=== PATIENT | male | born 1945 | race American Indian/Alaskan Native ===

== ENCOUNTER 2018-12-03 11:28 | Inpatient (IN) | payer BC, MEDICARE ==
[2018-12-03 11:28] VITALS: BMI 26.9
[2018-12-03] MEDS ORDERED: Sodium Chloride 0.9% 1,000 ML IV STA ×2 (12:31→12:39)
--- NOTE | 2018-12-03 12:49 | ED PDOC ---
HPI: General Adult Time Seen by Provider: 12/03/18 11:57 Chief Complaint (Nursing): Hip Pain Chief Complaint (Provider): Hip Pain History Per: Patient, Family History/Exam Limitations: no limitations Onset/Duration Of Symptoms: Days Current Symptoms Are (Timing): Still Present Additional Complaint(s): 73 year old male with a past medical history of HIV (CD4 count 320, viral load undetectable), diabetes and hypertension who is presenting to the ED with sister and cousin for evaluation of worsening bilateral hip pain ongoing for a few days. Patient has a history of chronic hip pain and he admits that the pain is worse with movement. He lives with his cousin and sister who state that patient was given an oxycodone and sister reports that he seemed confused even prior to the medication. She also states that patient has a tactile temperature and was sweating. Patient admits that he does not remember talking on the phone with his friend but today he is back to baseline mental status. Patient also complains of a decreased ability to ambulate secondary to pain. He denies any headaches, parasthesias, weakness or incontinence. PMD: Renate Garcia Past Medical History Reviewed: Historical Data, Nursing Documentation, Vital Signs Vital Signs: Last Vital Signs Temp 101.8 F H 12/03/18 12:28 Pulse 113 H 12/03/18 11:34 Resp 19 12/03/18 11:34 BP Pulse Ox 95 12/03/18 11:34 - Medical History PMH: Diabetes, Hypercholesterolemia Denies: Chronic Kidney Disease - Surgical History Surgical History: Hernia Repair (ventral and inguinal ) - Family History Family History: States: Unknown Family Hx - Social History Current smoker - smoking cessation education provided: No Alcohol: Social Drugs: Denies - Home Medications Home Medications: Ambulatory Orders Medication Instructions Recorded Darunavir [Prezista] 800 mg PO DAILY 10/10/18 Emtricitabine/Tenofovir Diso 1 tab PO DAILY 10/10/18 [Truvada 200 MG-300 MG] Famciclovir [Famvir] 500 mg PO Q12 10/10/18 Hydrochlorothiazide [Microzide] 12.5 mg PO DAILY 10/10/18 Levothyroxine [Synthroid] 50 mcg PO DAILY 10/10/18 Linagliptin [Tradjenta] 5 mg PO DAILY 10/10/18 Raltegravir Potassium [Isentress] 400 mg PO Q12 10/10/18 Ritonavir [Norvir] 100 mg PO DAILY 10/10/18 Tamsulosin [Flomax] 0.4 mg PO DAILY 10/10/18 Telmisartan [Micardis] 40 mg PO DAILY 10/10/18 Testosterone [Androgel] 2 actuation TOP BID 10/10/18 Ascorbic Acid [Vitamin C 500 mg 1 tab PO DAILY 12/03/18 Tab] Lysine [l-Lysine] 1 tab PO DAILY 12/03/18 MetFORMIN ER [Glucophage XR] 750 mg PO BID 12/03/18 Multivitamin [Multi-Vitamin Daily] 1 tab PO DAILY 12/03/18 Phil Campbell-3 Fatty Acids/Fish Oil 1,000 mg PO Q12 12/03/18 [Phil Campbell-3 1,000 mg Softgel] Ubidecarenone [Coenzyme Q-10] 1 cap PO DAILY 12/03/18 - Allergies Allergies/Adverse Reactions: Allergies Allergy/AdvReac Type Severity Reaction Status Date / Time No Known Allergies Allergy Verified 10/10/18 08:05 Review of Systems ROS Statement: Except As Marked, All Systems Reviewed And Found Negative Genitourinary Male: Negative for: Incontinence Musculoskeletal: Positive for: Other (hip pain bilaterally ) Neurological: Positive for: Confusion. Negative for: Weakness, Headache, Other (parasthesias ) Physical Exam - Reviewed Nursing Documentation Reviewed: Yes Vital Signs Reviewed: Yes - Physical Exam Appears: Positive for: Non-toxic, No Acute Distress Head Exam: Positive for: ATRAUMATIC, NORMAL INSPECTION, NORMOCEPHALIC Skin: Positive for: Normal Color, Warm, DRY Eye Exam: Positive for: EOMI, Normal appearance, PERRL Neck: Positive for: Normal, Painless ROM Cardiovascular/Chest: Positive for: Regular Rate, Rhythm. Negative for: Murmur Respiratory: Positive for: Normal Breath Sounds. Negative for: Respiratory Distress Gastrointestinal/Abdominal: Positive for: Normal Exam, Soft. Negative for: Tenderness Back: Positive for: Normal Inspection. Negative for: L CVA Tenderness, R CVA Tenderness, Vertebral Tenderness Extremity: Positive for: Normal ROM, Other (Decreased muscle strength bilateral lower extremities ). Negative for: Deformity, Swelling Neurological/Psych: Positive for: Awake, Alert, Normal Tone, Oriented (x3). Negative for: Motor/Sensory Deficits - Laboratory Results Result Diagrams: 12/03/18 13:25 12/03/18 13:25 - ECG O2 Sat by Pulse Oximetry: 95 (RA) Pulse Ox Interpretation: Normal - Critical Care Total Time (In Min): 120 Medical Decision Making Medical Decision Making: Time: 12:22 Plan: --VBG --EKG --CMP --ED Urine Dipstick --CBC --Coags --CXR --MRI Spinal Canal Lumbar --IV Fluids --Tylenol 650 mg PO --Blood Culture --Urine Culture --Glucose, Blood, POC --Influenza A B --Urinalysis Accession No. : [id number] Patient Name / ID : CHAPINCITO RESTREPO / [id number] Exam Date : 12/03/2018 12:39:28 ( Approved ) Study Comment : Sex / Age : M / 73Y Creator : Nehal Portillo MD Dictator : Nehal Portillo MD Graphics Intern : Roll Finisher : Nehal Portillo MD Approver2 : Report Date : 12/03/2018 14:04:03 My Comment : Date of service: 12/03/2018 HISTORY: SOB COMPARISON: 10/07/2009. FINDINGS: LUNGS: The lungs are hyperinflated and there is peribronchial thickening with chronic changes in both lungs. No focal consolidation. PLEURA: No pleural effusions or pneumothorax. CARDIOVASCULAR: The heart is normal in size. No aortic atherosclerotic calcifications present. OSSEOUS STRUCTURES: Within normal limits for the patient's age. VISUALIZED UPPER ABDOMEN: Normal. OTHER FINDINGS: None. IMPRESSION: No active pulmonary disease. COPD. Accession No. : [id number] Patient Name / ID : CHAPINCITO RESTREPO / [id number] Exam Date : 12/03/2018 15:35:58 ( Approved ) Study Comment : Sex / Age : M / 73Y Creator : Nehal Portillo MD Dictator : Nehal Portillo MD Graphics Intern : Roll Finisher : Nehal Portillo MD Approver2 : Report Date : 12/03/2018 16:55:53 My Comment : Date of service: 12/03/2018 PROCEDURE: MRI BRAIN WITH AND WITHOUT CONTRAST HISTORY: Resolved AMS, HIV, fever COMPARISON: None available. TECHNIQUE: Multiplanar, multisequence MR images of the brain were obtained with and without intravenous contrast enhancement. 19 cc Omniscan was injected intravenously. FINDINGS: HEMORRHAGE: None DWI: There are few tiny foci of restricted diffusion in the left paramedian posterior inferior cerebellar hemisphere. BRAIN PARENCHYMA: There are mild chronic microangiopathic changes. There is no mass, mass effect or abnormal extra-axial fluid collection. The midline sagittal structures are normal. ENHANCEMENT: No abnormal intracranial enhancement. VENTRICLES: There is mild age-related global parenchymal volume loss and proportionate enlargement of the ventricles and cortical sulci. CRANIUM: There is normal bone marrow signal pattern. ORBITS: Grossly unremarkable. PARANASAL SINUSES/MASTOIDS: There is a moderate right mastoid effusions. The left mastoid air cells are clear. The paranasal sinuses are predominantly clear. VASCULAR SYSTEM: There are normal signal voids in the larger intracranial arteries. OTHER FINDINGS: None . IMPRESSION: 1. Few small foci of acute left PICA territory infarctions in the left posterior inferior cerebellar hemisphere. The pattern of distribution suggests embolic etiology. 2. Mild chronic microangiopathic changes and mild age-related global parenchymal volume loss. Accession No. : [id number] Patient Name / ID : CHAPINCITO RESTREPO / [id number] Exam Date : 12/03/2018 16:09:16 ( Approved ) Study Comment : Sex / Age : M / 73Y Creator : Nehal Portillo MD Dictator : Nehal Portillo MD Graphics Intern : Roll Finisher : Nehal Portillo MD Approver2 : Report Date : 12/03/2018 17:11:44 My Comment : Date of service: 12/03/2018 PROCEDURE: MR LUMBAR SPINE WITH AND WITHOUT CONTRAST HISTORY: HIV, bakc pain, fever COMPARISON: None available. TECHNIQUE: Multiecho multiplanar sequences were performed through the lumbar spine with and without the use of intravenous contrast. 19 cc Omniscan was injected intravenously. FINDINGS: There is degenerative 8 mm retrolisthesis of L5 on S1. There is straightening of the lumbar spine with loss of normal lumbar lordosis. There are advanced degenerative endplate marrow changes at L5-S1 and to a lesser extent at L2-3 posteriorly. There is enhancement corresponding to the endplate marrow changes at L2-3 posteriorly most compatible with reactive/inflammatory enhancement. Otherwise, bone marrow signal is within normal limits. 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 The conus medullaris terminates at a normal level and the nerve roots of cauda e quina are normal. T12-L1: No disc herniation, spinal canal stenosis or neural foraminal narrowing. L1-2: Diffuse posterior disc bulge indents the ventral thecal sac without central spinal canal stenosis. Also noted is superimposed left foraminal disc protrusion. Mild bilateral facet arthropathy contribute to mild left neural foraminal narrowing. L2-3: Diffuse posterior disc bulge indents the ventral thecal sac and in conjunction with moderate ligamentum flavum infolding result in moderate spinal canal stenosis. Mild bilateral facet arthropathy contribute to mild neural foraminal narrowing. L3-4: Diffuse posterior disc bulge indents the ventral thecal sac and in conjunction with mild ligamentum flavum infolding result in mild spinal canal stenosis. Mild bilateral facet arthropathy without neural foraminal narrowing. L4-5: Diffuse posterior disc bulge and superimposed broad-based central disc protrusion indents the ventral thecal sac and in conjunction with moderate ligamentum flavum infolding result in mild spinal canal stenosis. Moderate bilateral facet arthropathy contribute to severe right and moderate left neural foraminal narrowing. L5-S1: Diffuse posterior disc bulge indents the ventral thecal sac and in conjunction with mild ligamentum flavum infolding result in mild spinal canal stenosis. Severe bilateral facet arthropathy contribute to severe neural foraminal narrowing. OTHER FINDINGS: The paraspinous soft tissues are normal imaged portion of the retroperitoneum is within normal limits. IMPRESSION: 1. No acute fracture or spondylolysis. 2. Advanced multilevel degenerative disc disease superimposed on a congenitally narrow spinal canal from congenital short pedicles, worse at L4-5 with a broad- based central disc protrusion, mild spinal canal stenosis, severe right and moderate left neural foraminal narrowing. 3. Additional comments as described above. 15:00 Dr. Sanchez in ED, results discussed. 16:[address] Steele, awaiting MRI results. 16:[address] Roy (Radiology), MRI brain reveals infarcts. 17:05 MRI findings discussed with Dr. Sanchez, Dr. Fontenot for Neuro, recommends CT abd/pelvis. 17:10 MRI findings discussed with Dr. Fontenot, ASA, CTA head and neck, admit to ICU. 17:25 Will prophylactically administer Vancomycin 1 g IV and Cefepime 2 g IV for endocarditis. Pt reexamined. Denies ROSENBAUM, neck stiffness, CP, SOB. BLE weakness resolved, MS 5/5 bilaterally, no heart murmur appreciated, no complaints. MRI findings discussed with Dr. Steele and Laura. Pt and family requesting Dr. De Paz for Cardiology. 17:[address] De Paz, will consult. 17:[address] Sanchez in ED, will discussed with Dr. Rosa (ICU). Scribe Attestation: Documented by Colleen Lion, acting as a scribe for Mercedes Sommers MD. Provider Scribe Attestation: All medical record entries made by the Scribe were at my direction and personally dictated by me. I have reviewed the chart and agree that the record accurately reflects my personal performance of the history, physical exam, me dical decision making, and the department course for this patient. I have also personally directed, reviewed, and agree with the discharge instructions and disposition. Disposition - Clinical Impression Clinical Impression: Fever, Sepsis, HIV (human immunodeficiency virus infection), Cerebrovascular accident, embolic - Disposition Referrals: Non [facility] Provider, [Primary Care Provider] - Disposition Time: 18:09 Condition: GUARDED Forms: Whitepages (Yi) - Pt Status Changed To: Hospital Disposition Of: Inpatient - Admit Certification Admit to Inpatient:: After my assessment, the patient will require hospitalization for at least two midnights. This is because of the severity of symptoms shown, intensity of services needed, and/or the medical risk in this patient being treated as an outpatient. - POA Present On Arrival: Poor Glycemic Control
[2018-12-03 13:38] LABS: VENOUS BLOOD GAS BASE EXCESS -1.3 mmol/L (0.0-2.0); VENOUS BLOOD GAS PCO2 35 mmHg (40-60); VENOUS BLOOD GAS PO2 39 mm/Hg (30-55); VENOUS BLOOD PH 7.42 (7.32-7.43)
[2018-12-03 13:49] LABS: BASO # 0.1 K/uL (0.0-0.2); BASO % 0.2 % (0.0-2.0); LYMPH # 0.6 K/uL (1.0-4.3); LYMPH % 2.5 % (20.0-40.0); MEAN CELL VOLUME 93.5 fl (80.0-94.0); MEAN CORPUSCULAR HGB CONC 33.2 g/dL (33.0-37.0); MEAN PLATELET VOLUME 7.5 fl (7.2-11.7); MONO # 1.3 K/uL (0.0-0.8); MONO % 5.3 % (0.0-10.0); NEUT # 22.9 K/uL (1.8-7.0); PLATELET COUNT 279 K/uL (130-400); RBC 3.86 Mil/uL (4.40-5.90); RED CELL DISTRIBUTION WIDTH 14.4 % (11.5-14.5); WHITE BLOOD COUNT 24.9 K/uL (4.8-10.8)
[2018-12-03 13:53] LABS: ALB/GLOB RATIO 1.1 (1.0-2.1); ALBUMIN 4.2 g/dL (3.5-5.0); CALCIUM 9.4 mg/dL (8.4-10.2)
[2018-12-03 13:55] LABS: INR 1.1; PROTHROMBIN TIME 12.4 Seconds (9.8-13.1)
[2018-12-03 13:57] LABS: PARTIAL THROMBOPLASTIN TIME 29.6 Seconds (25.6-37.1)
--- NOTE | 2018-12-03 14:07 | RAD ---
Date of service: 12/03/2018 HISTORY: SOB COMPARISON: 10/07/2009. FINDINGS: LUNGS: The lungs are hyperinflated and there is peribronchial thickening with chronic changes in both lungs. No focal consolidation. PLEURA: No pleural effusions or pneumothorax. CARDIOVASCULAR: The heart is normal in size. No aortic atherosclerotic calcifications present. OSSEOUS STRUCTURES: Within normal limits for the patient's age. VISUALIZED UPPER ABDOMEN: Normal. OTHER FINDINGS: None. IMPRESSION: No active pulmonary disease. COPD.
[2018-12-03 14:40] LABS: SQUAMOUS EPITHIAL < 1 /hpf (0-5); URINE BACTERIA RARE (<OCC); URINE BILIRUBIN NEGATIVE (NEGATIVE); URINE BLOOD MODERATE (NEGATIVE); URINE COLOR YELLOW (YELLOW); URINE GLUCOSE (UA) NEG (NEGATIVE); URINE LEUKOCYTE ESTERASE NEG Leu/uL (Negative); URINE PROTEIN 30 mg/dL (NEGATIVE); URINE UROBILINOGEN 0.2-1.0 mg/dL (0.2-1.0)
[2018-12-03] MEDS ORDERED: Gadodiamide 287 MG/ML VIAL (15ML) IV ONE (14:55)
[2018-12-03 14:57] LABS: URINE CLARITY SLIGHT-CLOUDY (Clear)
[2018-12-03 15:25] LABS: BANDS 6 % (0-2); LYMPHOCYTE 2 % (20-50); MONOCYTE 3 % (0-10); NEUTROPHIL 89 % (42-75); TOTAL CELLS COUNTED 100
[2018-12-03 15:26] LABS: PLATELET ESTIMATE NORMAL (NORMAL)
--- NOTE | 2018-12-03 16:59 | MRI ---
Date of service: 12/03/2018 PROCEDURE: MRI BRAIN WITH AND WITHOUT CONTRAST HISTORY: Resolved AMS, HIV, fever COMPARISON: None available. TECHNIQUE: Multiplanar, multisequence MR images of the brain were obtained with and without intravenous contrast enhancement. 19 cc Omniscan was injected intravenously. FINDINGS: HEMORRHAGE: None DWI: There are few tiny foci of restricted diffusion in the left paramedian posterior inferior cerebellar hemisphere. BRAIN PARENCHYMA: There are mild chronic microangiopathic changes. There is no mass, mass effect or abnormal extra-axial fluid collection. The midline sagittal structures are normal. ENHANCEMENT: No abnormal intracranial enhancement. VENTRICLES: There is mild age-related global parenchymal volume loss and proportionate enlargement of the ventricles and cortical sulci. CRANIUM: There is normal bone marrow signal pattern. ORBITS: Grossly unremarkable. PARANASAL SINUSES/MASTOIDS: There is a moderate right mastoid effusions. The left mastoid air cells are clear. The paranasal sinuses are predominantly clear. VASCULAR SYSTEM: There are normal signal voids in the larger intracranial arteries. OTHER FINDINGS: None . IMPRESSION: 1. Few small foci of acute left PICA territory infarctions in the left posterior inferior cerebellar hemisphere. The pattern of distribution suggests embolic etiology. 2. Mild chronic microangiopathic changes and mild age-related global parenchymal volume loss. Important findings were discussed with Dr. Mercedes Sommers in the ER on 12/03/2018 at 4:53 p.m.
[2018-12-03 17:13] LABS: VENOUS BLOOD GAS BASE EXCESS -1.8 mmol/L (0.0-2.0); VENOUS BLOOD GAS PCO2 42 mmHg (40-60); VENOUS BLOOD GAS PO2 22 mm/Hg (30-55); VENOUS BLOOD PH 7.36 (7.32-7.43)
--- NOTE | 2018-12-03 17:15 | MRI ---
Date of service: 12/03/2018 PROCEDURE: MR LUMBAR SPINE WITH AND WITHOUT CONTRAST HISTORY: HIV, bakc pain, fever COMPARISON: None available. TECHNIQUE: Multiecho multiplanar sequences were performed through the lumbar spine with and without the use of intravenous contrast. 19 cc Omniscan was injected intravenously. FINDINGS: There is degenerative 8 mm retrolisthesis of L5 on S1. There is straightening of the lumbar spine with loss of normal lumbar lordosis. There are advanced degenerative endplate marrow changes at L5-S1 and to a lesser extent at L2-3 posteriorly. There is enhancement corresponding to the endplate marrow changes at L2-3 posteriorly most compatible with reactive/inflammatory enhancement. Otherwise, bone marrow signal is within normal limits. 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 The conus medullaris terminates at a normal level and the nerve roots of cauda equina are normal. T12-L1: No disc herniation, spinal canal stenosis or neural foraminal narrowing. L1-2: Diffuse posterior disc bulge indents the ventral thecal sac without central spinal canal stenosis. Also noted is superimposed left foraminal disc protrusion. Mild bilateral facet arthropathy contribute to mild left neural foraminal narrowing. L2-3: Diffuse posterior disc bulge indents the ventral thecal sac and in conjunction with moderate ligamentum flavum infolding result in moderate spinal canal stenosis. Mild bilateral facet arthropathy contribute to mild neural foraminal narrowing. L3-4: Diffuse posterior disc bulge indents the ventral thecal sac and in conjunction with mild ligamentum flavum infolding result in mild spinal canal stenosis. Mild bilateral facet arthropathy without neural foraminal narrowing. L4-5: Diffuse posterior disc bulge and superimposed broad-based central disc protrusion indents the ventral thecal sac and in conjunction with moderate ligamentum flavum infolding result in mild spinal canal stenosis. Moderate bilateral facet arthropathy contribute to severe right and moderate left neural foraminal narrowing. L5-S1: Diffuse posterior disc bulge indents the ventral thecal sac and in conjunction with mild ligamentum flavum infolding result in mild spinal canal stenosis. Severe bilateral facet arthropathy contribute to severe neural foraminal narrowing. OTHER FINDINGS: The paraspinous soft tissues are normal imaged portion of the retroperitoneum is within normal limits. IMPRESSION: 1. No acute fracture or spondylolysis. 2. Advanced multilevel degenerative disc disease superimposed on a congenitally narrow spinal canal from congenital short pedicles, worse at L4-5 with a broad-based central disc protrusion, mild spinal canal stenosis, severe right and moderate left neural foraminal narrowing. 3. Additional comments as described above.
[2018-12-03] MEDS ORDERED: Vancomycin 1 g Inj ONE (17:24)
[2018-12-03] MEDS ORDERED: Cefepime 2 GM in Sodium Chloride 0.9% 100 ML IVPB STA (17:42)
[2018-12-03] MEDS ORDERED: Iohexol 240 (50 ml) PO ONE (18:08)
--- NOTE | 2018-12-03 18:12 | CP.PCM.CON ---
History of Present Illness - History of Present Illness History of Present Illness: Infectious disease consultation note HPI Patient is a 73-year-old male with past medical history of HIV well-controlled last CD4 -320 and VL < 20 UD ( follows up with me as outpatient) diabetes well- controlled follows up with Dr. blackmon, hypertension, hypothyroidism, BPH, history of lumbar spinal stenosis, and history of bilateral hip arthritis, who states yesterday while he was at work developed feelings of fatigue and not having any strength or energy in his legs bilaterally and he was also somewhat diaphoretic. Patient states when he got home he was even more tired and felt like he had no strength in his legs and could not move his legs secondary to both weakness and pain in bilateral hips patient sister who also lives in the same building on the downstairs for verifies all of this and states that she has not seen his brother like this. She states that while he was finally able to get inside his building he looked disoriented and somewhat confused and apparently had made a phone call to a friend which she does not recall he states eventually he fell asleep. He also states that he was having dry cough for a couple of days but denies any shortness of breath denies any chest pain, denies any nausea vomiting, denies any abdominal pain, denies any dysuria, denies any diarrhea. He denies any headache and denies any neck pain and denies any loss of bowel or bladder however he states he continued to feel weak today and with no strength in his legs and severe bilateral hip pain and hence they called an ambulance and he was brought into the ER for further evaluation Patient denies any recent travel, he does state that he has 2 cats that he has rescued but he has had them for the past 2 years. Denies any scratches by these cats. Patient has also had recent ventral hernia and inguinal hernia repair done by Dr. Lai and as per patient surgery went well and everything is okay with that. Also prior to the surgery I have sent patient for cardiac clearance which was done by Dr. Colin'chiquita and patient had nuclear stress test at that time which was fine as per cardiology. In the ED patient was found to have leukocytosis of 25,000, chest x-ray was read as negative, urinalysis Negative, ER doctor had sent the patient for MRI of the brain and MRI of the spine and as per Tootie at the ER doctor the MRI of the b rain was read as: few small foci of acute Left PICA teriitory infarction in the left posterior crebellar hemisphere. ( as per report). Patient is currently back to his baseline and oriented x e and pleasant and answering all questions appropriately. Review of Systems - Review of Systems Review of Systems: ROS- denies any fever or chills, mild dry cough, denies any sob, denies any chest pain, denies any abd. pain, denies any nausea or vomiting, denies any diarrhea, denies any dysurea. c/o pain in b/l hips along with weakness of the legs but denies any loss of sensation. full strength in arms. Past Patient History - Infectious Disease Hx of Infectious Diseases: None - Past Social History Smoking Status: Former Smoker Alcohol: Social Drugs: Denies Home Situation {Lives}: Alone - CARDIAC Hx Hypercholesterolemia: Yes Hx Hypertension: Yes - PULMONARY Hx Respiratory Disorders: No - NEUROLOGICAL Hx Neurological Disorder: No - HEENT Hx HEENT Problems: No - RENAL Hx Chronic Kidney Disease: No - ENDOCRINE/METABOLIC Hx Diabetes Mellitus Type 2: Yes Hx Hypothyroidism: Yes - HEMATOLOGICAL/ONCOLOGICAL Hx Human Immunodeficiency Virus (HIV): Yes - INTEGUMENTARY Hx Dermatological Problems: No - MUSCULOSKELETAL/RHEUMATOLOGICAL Hx Musculoskeletal Disorders: Yes Hx Spinal Stenosis: Yes - PSYCHIATRIC Hx Substance Use: No - SURGICAL HISTORY Hx Surgeries: Yes Other/Comment: hernia removal 10/2018 Meds Allergies/Adverse Reactions: Allergies Allergy/AdvReac Type Severity Reaction Status Date / Time No Known Allergies Allergy Verified 10/10/18 08:05 - Medications Medications: Current Medications Darunavir (Prezista) 800 mg PO DAILY ON LICENSE OF [facility]; Protocol Emtricitabine/Tenofovir (Truvada 200 Mg-300 Mg) 1 tab PO DAILY [facility]; Protocol Home Med (Famciclovir [Famvir]) 500 mg PO Q12 [facility] Home Med (Lysine [L-Lysine]) 1 tab PO DAILY [facility] Vancomycin HCl 1 gm/ Sodium (Chloride) 250 mls @ 166.667 mls/hr IVPB STAT STA; Protocol Stop: 12/03/18 19:11 Last Admin: 12/03/18 17:49 Dose: 166.667 mls/hr Cefepime HCl 2 gm/ Sodium (Chloride) 100 mls @ 100 mls/hr IVPB STAT STA; Protocol Stop: 12/03/18 18:41 Sodium Chloride (Sodium Chloride 0.9%) 1,000 mls @ 100 mls/hr IV .Q10H [facility] Stop: 12/04/18 18:11 Iohexol (Omnipaque 240 (50 Ml)) 50 ml PO ONCE ONE Stop: 12/03/18 18:09 Levothyroxine Sodium (Synthroid) 50 mcg PO DAILY@0630 ON LICENSE OF [facility] Multivitamins/Minerals (Therapeutic-M Tab) 1 tab PO DAILY ON LICENSE OF [facility] Isohv-2-Rfam Ethyl Esters (Lovaza) 1 gm PO Q12 [facility] Raltegravir (Isentress) 400 mg PO Q12 ON LICENSE OF [facility]; Protocol Ritonavir (Norvir) 100 mg PO DAILY ON LICENSE OF [facility] Tamsulosin HCl (Flomax) 0.4 mg PO DAILY ON LICENSE OF [facility] Physical Exam - Constitutional Appears: No Acute Distress - Head Exam Head Exam: ATRAUMATIC - Eye Exam Eye Exam: EOMI, PERRL - ENT Exam ENT Exam: Normal Oropharynx - Neck Exam Neck exam: Positive for: Full Rom Additional comments: supple no meningismus - Respiratory Exam Respiratory Exam: NORMAL BREATHING PATTERN Additional comments: no wheezing faint crackles at bases b/l - Cardiovascular Exam Cardiovascular Exam: RRR, +S1, +S2 - GI/Abdominal Exam GI & Abdominal Exam: Normal Bowel Sounds, Soft Additional comments: NT, ND chronic lypodystrophy - Extremities Exam Extremities exam: Positive for: normal inspection - Neurological Exam Neurological exam: Alert, Oriented x3 Additional comments: strength 5/5 B/L UE and 4/% B/l LE sensation intact b/l Results - Vital Signs Recent Vital Signs: Last Vital Signs Temp 101.8 F H 12/03/18 12:28 Pulse 113 H 12/03/18 11:34 Resp 19 12/03/18 11:34 BP Pulse Ox 95 12/03/18 18:10 - Labs Result Diagrams: 12/03/18 13:25 12/03/18 13:25 Labs: Laboratory Results - last 24 hr 12/03/18 12/03/18 12/03/18 11:46 13:25 13:25 WBC 24.9 H RBC 3.86 L Hgb 12.0 Hct 36.1 MCV 93.5 MCH 31.0 MCHC 33.2 RDW 14.4 Plt Count 279 MPV 7.5 Neut % (Auto) 92.0 H Lymph % (Auto) 2.5 L Love % (Auto) 5.3 Eos % (Auto) 0.0 Baso % (Auto) 0.2 Neut # (Auto) 22.9 H Lymph # (Auto) 0.6 L Love # (Auto) 1.3 H Eos # (Auto) 0.0 Baso # (Auto) 0.1 Neutrophils % (Manual) 89 H Band Neutrophils % 6 H Lymphocytes % (Manual) 2 L Monocytes % (Manual) 3 Platelet Estimate Normal RBC Morphology Normal PT INR APTT pO2 VBG pH VBG pCO2 VBG HCO3 VBG Total CO2 VBG O2 Sat (Calc) VBG Base Excess VBG Potassium Glucose Lactate FiO2 Sodium 133 Potassium 4.0 Chloride 100 Carbon Dioxide 22 Anion Gap 15 BUN 38 H Creatinine 1.5 Est GFR ( Amer) 56 Est GFR (Non-Af Amer) 46 POC Glucose (mg/dL) 221 H Random Glucose 207 H Calcium 9.4 Total Bilirubin 0.8 AST 58 ALT 37 Alkaline Phosphatase 102 Total Protein 8.0 Albumin 4.2 Globulin 3.7 Albumin/Globulin Ratio 1.1 Venous Blood Potassium Urine Color Urine Clarity Urine pH Ur Specific [place] Urine Protein Urine Glucose (UA) Urine Ketones Urine Blood Urine Nitrate Urine Bilirubin Urine Urobilinogen Ur Leukocyte Esterase Urine RBC (Auto) Urine Microscopic WBC Ur Squamous Epith Cells Urine Bacteria Hyaline Casts Influenza Typ A,B (EIA) 12/03/18 12/03/18 12/03/18 13:25 13:25 13:30 WBC RBC Hgb Hct MCV MCH MCHC RDW Plt Count MPV Neut % (Auto) Lymph % (Auto) Love % (Auto) Eos % (Auto) Baso % (Auto) Neut # (Auto) Lymph # (Auto) Love # (Auto) Eos # (Auto) Baso # (Auto) Neutrophils % (Manual) Band Neutrophils % Lymphocytes % (Manual) Monocytes % (Manual) Platelet Estimate RBC Morphology PT 12.4 INR 1.1 APTT 29.6 pO2 39 VBG pH 7.42 VBG pCO2 35 L VBG HCO3 23.3 VBG Total CO2 23.8 VBG O2 Sat (Calc) 78.1 H VBG Base Excess -1.3 L VBG Potassium 4.1 Glucose 214 H Lactate 2.3 H FiO2 21.0 Sodium 133.0 Potassium Chloride 99.0 Carbon Dioxide Anion Gap BUN Creatinine Est GFR ( Amer) Est GFR (Non-Af Amer) POC Glucose (mg/dL) Random Glucose Calcium Total Bilirubin AST ALT Alkaline Phosphatase Total Protein Albumin Globulin Albumin/Globulin Ratio Venous Blood Potassium 4.1 Urine Color Urine Clarity Urine pH Ur Specific [place] Urine Protein Urine Glucose (UA) Urine Ketones Urine Blood Urine Nitrate Urine Bilirubin Urine Urobilinogen Ur Leukocyte Esterase Urine RBC (Auto) Urine Microscopic WBC Ur Squamous Epith Cells Urine Bacteria Hyaline Casts Influenza Typ A,B (EIA) Negative for flu a/b 12/03/18 12/03/18 12/03/18 13:36 13:45 17:10 WBC RBC Hgb Hct MCV MCH MCHC RDW Plt Count MPV Neut % (Auto) Lymph % (Auto) Love % (Auto) Eos % (Auto) Baso % (Auto) Neut # (Auto) Lymph # (Auto) Love # (Auto) Eos # (Auto) Baso # (Auto) Neutrophils % (Manual) Band Neutrophils % Lymphocytes % (Manual) Monocytes % (Manual) Platelet Estimate RBC Morphology PT INR APTT pO2 22 L VBG pH 7.36 VBG pCO2 42 VBG HCO3 21.8 VBG Total CO2 25.0 VBG O2 Sat (Calc) 40.0 VBG Base Excess -1.8 L VBG Potassium 4.0 Glucose 189 H Lactate 2.9 H FiO2 21.0 Sodium 134.0 Potassium Chloride 101.0 Carbon Dioxide Anion Gap BUN Creatinine Est GFR ( Amer) Est GFR (Non-Af Amer) POC Glucose (mg/dL) 226 H Random Glucose Calcium Total Bilirubin AST ALT Alkaline Phosphatase Total Protein Albumin Globulin Albumin/Globulin Ratio Venous Blood Potassium 4.0 Urine Color Yellow Urine Clarity Slight-cloudy Urine pH 5.0 Ur Specific [place] 1.023 Urine Protein 30 Urine Glucose (UA) Neg Urine Ketones Negative Urine Blood Moderate Urine Nitrate Negative Urine Bilirubin Negative Urine Urobilinogen 0.2-1.0 Ur Leukocyte Esterase Neg Urine RBC (Auto) 16 H Urine Microscopic WBC 3 Ur Squamous Epith Cells < 1 Urine Bacteria Rare Hyaline Casts 3-5 H Influenza Typ A,B (EIA) Assessment & Plan (1) Cerebrovascular accident, embolic Status: Acute (2) HIV (human immunodeficiency virus infection) Status: Acute (3) Leukocytosis Status: Acute (4) Fever Status: Acute (5) Chronic hip pain, bilateral Status: Acute (6) Hypothyroidism Status: Acute - Assessment and Plan (Free Text) Assessment: A/P- 73 year old male with HIV ( well controlled), DM II, HTN, Hypothyroidism, b/l chronic hip spian from arthritis and spinal stenosis admitted with change in MS , weakness and hip pain. [place] status is back to baseline now . MRI of the brain - as per report small foci of acute Left PICA territory infarction CXR- reported negative one fever recorded- 101 wbc- 25,000 UA- negative PLan- The etiology of the leukocystois and fever unclear at this time. in light of h/o recent hernia reapir advise to get abd/pelvic CT . check chest Ct as well in light of cough and faint crackles heard at bases. check blood cx x 2. check urien cx. check sputum cx. check TTE r/o endocarditis in light of ischemic ? embolic PICA teriitory infarction. Neuro consult. cardiac consult. case d/w ICU doc and requested pt to be be admitted to ICU for closer observation and monitoring in light of MRI report and his symptoms. adviise to continue with his home HAART medications.( raltegravir, truvada, prezista, norvir) Advise to continue with IV vanco and cefepime that was started empirically in ED pending culture results. All above d/w patient and his family at length and all their questions were answerd and they verbalize full understanding of all above. Time spent 60 minutes.
[2018-12-03] MEDS ORDERED: Sodium Chloride 0.9% 1,000 ML IV SCH (18:15)
--- NOTE | 2018-12-03 18:59 | CP.CCUPN ---
CCU Subjective - Physician Review Subjective (Free Text): 73M admitted today to ICU for acute cerebellar Stroke over the Left PICA region as noted on MRI Brain with IV contrast, previous neuro-deficits involving alteration in mental status, recall and ambulation difficulties with increase in bilateral hip pain over his chronic hip pain discomfort, have resolved and according to family and PMD, he his back to baseline. PMH: HIV+ with CD4 300s, DM II, HTN, hypothyroidism, bilateral hip arthritis, lumbar spinal stenosis, and BPH. 101.8F temp spike on admission. BP pending, HR 100s, RR 18, SPO2 95% on room air. ROS: No other pertinent negs or positives on 10+ system review Allergies: NKDA Home Meds: Prezista, Emtricit/Tenofo/Diso, Raltegravir, Norvir, Famvir, MVIs, Lysine, HCTZ, Micardis, Flomax, L-thyroxine, Tradjenta, MetforminER, Androgel, Co-E Q. PMSFH: As bopvem former smoker, denies ETOH abuse or other substance abuse. All other Nursing and physician documentation reviewed to date; no new pertinent info noted relevant to current medical problems. EXAM- HEENT: no icterus, no gaze preference, pupils 3 mm equal and reactive, no nystagmus, +gag NECK: no JVD visible, supple, carotids equal upstroke bilat/no bruit CHEST: decreased BS at the bases, no wheezes audible HEART: regular, distant S1S2, no rubs ABD: soft, no distension, no focal tenderness, no tympany, no guarding, no organomegaly, BS hypoactive. EXT: trace LE edema, no mottling; no calf tenderness or palpable cords, distal pulses intact and symmetrical NEURO: no gross focal motor deficits, plantars downgoing bilat, mild L drift, sensory intact bilat SKIN: no rashes, warm and dry. LABS: WBC= 24.9 HGB= 12.0 PLTs= 279K Na= 133 K= 4.0 CL= 100 HCO3= 22 BUN/Cr= 38/1.5 BS= 207 VBG #1 @1330: 7.42/35/39 78% satn, Lactate = 2.3 VBG #2@ 1710: 7.36/42/22 40% satn, Lactate = 2.9 CXR: (my interp): mild LLL peripheral haziness, but no gross consolidation, nor effusion. EKG: (my interp): sinus 111/min, CRBBB, minor nonspecific ST changes in III. IMPRESSION / MAJOR PROBLEMS NOW: 1. Acute Left Cerebellar embolic Stroke 2. Sepsis, r/o Pneumonia 3. HTN 4. HIV Disease 5. h/o Chronic Hip Arthritis / DJD. 6. h/o DM II PLAN: 1. ASA, Statin, Neurochecks, Seizure precautions, HOB elevation, DVT pro phylaxis with Lovenox. 2. ECHO, Carotid Doppler 3. Watch BP trends, no lowering unless MAP exceeds 110-120. 4. Empiric abx coverage started in ED. 5. Consider CT Chest to further eval for infiltrate. 6. Continue HAART meds. 7. Repeat serial Lactates, follow BP trends, supplemental oxygen. 8. Maintain normoglycemia, fever control.
--- NOTE | 2018-12-03 19:14 | CP.PCM.HP ---
<Flynn Barajas - Last Filed: 12/03/18 20:19> History of Present Illness - History of Present Illness History of Present Illness: This is 73 M old male with PMH of HIV/undetected VL, DM-II, HTN, hypothyroidism, BPH, history of lumbar spinal stenosis, and history of bilateral hip arthritis admitted to [facility] for evaluation and treatment of embolic stroke, fever and b/l hip pain. Patient presents to the ER c/o 1 day hx of worsening b/l hip pain, lower extremities weakness at the point he couldn't even get up and intermittent confusion. As per family he was little confused and drowsy last night, patient was given a percocet for his b/l hip pain. Reports intermittent subjective fever/diaphoretic episodes yesterday, denies any vomiting, head trauma, LOC. + dry cough, + recent ventral hernia and inguinal hernia repair. Denies any chest pain, SOB, abdominal pain, dysuria, blurred vision or slurred speech. Patient reports he is normal to his baseline/mental and health state currently. PMH: HIV/undetected VL, DM-II, HTN, hypothyroidism, BPH, history of lumbar spinal stenosis, and history of bilateral hip arthritis PSH: + recent ventral hernia and inguinal hernia repair, a month ago Allg: NKDA (doesn't feel good after tylenol/percocet) SH: Denies current alcohol/smoking or drug use FH: + heart disease, COPD ROS: As per HPI ER Course: VS: F 101.8, HR 113, RR 19, no bp recorded, Spo2 95% RA CBC: WBC 24.9 CMP: Significant for BUN 28 and BS 221 UA: negative Blood gas: reviewed , lactic acid 2.3 Flu negative MRI head: Few small foci of acute Left PICA teriitory infarction in the left posterior crebellar hemisphere CXR: no active disease, COPD EKG: Sinus tacky, RBBB S/p: Vanco and Cefepime Present on Admission - Present on Admission Any Indicators Present on Admission: No Review of Systems - Constitutional Constitutional: Fever, Weakness. absent: Lethargy, Night Sweats, Snoring - EENT Eyes: absent: Blurred Vision, Pain, Photophobia, Tunnel Vision Ears: absent: Dizziness Nose/Mouth/Throat: absent: Nasal Congestion, Sore Throat - Cardiovascular Cardiovascular: absent: Chest Pain - Respiratory Respiratory: Cough. absent: Dyspnea, Hemoptysis, Dyspnea on Exertion - Gastrointestinal Gastrointestinal: absent: Abdominal Pain - Genitourinary Genitourinary: absent: Change in Urinary Stream - Musculoskeletal Musculoskeletal: Muscle Weakness, Numbness, Radiating Pain into Limb, Tingling. absent: Back Pain, Neck Pain - Integumentary Integumentary: absent: Bleeding Lesions - Neurological Neurological: Confusion (resolved ). absent: Dizziness, Sensory Deficit, Syncope - Psychiatric Psychiatric: absent: Anxiety, Depression - Endocrine Endocrine: absent: Change in Body Appearance - Hematologic/Lymphatic Hematologic: absent: Easy Bleeding Past Patient History - Infectious Disease Hx of Infectious Diseases: None - Past Social History Smoking Status: Former Smoker Alcohol: Social Drugs: Denies Home Situation {Lives}: Alone - CARDIAC Hx Hypercholesterolemia: Yes Hx Hypertension: Yes - PULMONARY Hx Respiratory Disorders: No - NEUROLOGICAL Hx Neurological Disorder: No - HEENT Hx HEENT Problems: No - RENAL Hx Chronic Kidney Disease: No - ENDOCRINE/METABOLIC Hx Diabetes Mellitus Type 2: Yes Hx Hypothyroidism: Yes - HEMATOLOGICAL/ONCOLOGICAL Hx Human Immunodeficiency Virus (HIV): Yes - INTEGUMENTARY Hx Dermatological Problems: No - MUSCULOSKELETAL/RHEUMATOLOGICAL Hx Musculoskeletal Disorders: Yes Hx Spinal Stenosis: Yes - PSYCHIATRIC Hx Substance Use: No - SURGICAL HISTORY Hx Surgeries: Yes Other/Comment: hernia removal 10/2018 Meds Allergies/Adverse Reactions: Allergies Allergy/AdvReac Type Severity Reaction Status Date / Time No Known Allergies Allergy Verified 10/10/18 08:05 Physical Exam - Constitutional Appears: Well, No Acute Distress - Head Exam Head Exam: ATRAUMATIC, NORMAL INSPECTION, NORMOCEPHALIC - Eye Exam Eye Exam: EOMI, Normal appearance, PERRL Pupil Exam: NORMAL ACCOMODATION, PERRL - ENT Exam ENT Exam: Mucous Membranes Moist, Normal Exam Additional comments: kernig sign negative - Neck Exam Neck exam: Positive for: Normal Inspection. Negative for: Lymphadenopathy, Meningismus, Tenderness, Thyromegaly - Respiratory Exam Respiratory Exam: Clear to Auscultation Bilateral, NORMAL BREATHING PATTERN. absent: Accessory Muscle Use, Decreased Breath Sounds, Wheezes, Respiratory Distress - Cardiovascular Exam Cardiovascular Exam: Tachycardia, REGULAR RHYTHM, RRR, +S1, +S2. absent: Sy stolic Murmur - GI/Abdominal Exam GI & Abdominal Exam: Normal Bowel Sounds, Soft. absent: Tenderness - Extremities Exam Extremities exam: Positive for: normal inspection Additional comments: B/l LEs: Sensory/Motor/Strength 5/5, no foot drop or calf tenderness or edema - Back Exam Back exam: absent: CVA tenderness (L), CVA tenderness (R) - Neurological Exam Neurological exam: Alert, CN II-XII Intact, Oriented x3, Reflexes Normal Additional comments: no pronator drift NIHSS: 0 - Psychiatric Exam Psychiatric exam: Normal Affect - Skin Skin Exam: Dry, Intact, Normal Color, Warm Results - Vital Signs Recent Vital Signs: Last Vital Signs Temp 101.8 F H 12/03/18 12:28 Pulse 113 H 12/03/18 11:34 Resp 19 12/03/18 11:34 BP Pulse Ox 95 12/03/18 18:10 - Labs Result Diagrams: 12/03/18 13:25 12/03/18 13:25 Labs: Laboratory Results - last 24 hr 12/03/18 12/03/18 12/03/18 11:46 13:25 13:25 WBC 24.9 H RBC 3.86 L Hgb 12.0 Hct 36.1 MCV 93.5 MCH 31.0 MCHC 33.2 RDW 14.4 Plt Count 279 MPV 7.5 Neut % (Auto) 92.0 H Lymph % (Auto) 2.5 L [place] % (Auto) 5.3 Eos % (Auto) 0.0 Baso % (Auto) 0.2 Neut # (Auto) 22.9 H Lymph # (Auto) 0.6 L [place] # (Auto) 1.3 H Eos # (Auto) 0.0 Baso # (Auto) 0.1 Neutrophils % (Manual) 89 H Band Neutrophils % 6 H Lymphocytes % (Manual) 2 L Monocytes % (Manual) 3 Platelet Estimate Normal RBC Morphology Normal PT INR APTT pO2 VBG pH VBG pCO2 VBG HCO3 VBG Total CO2 VBG O2 Sat (Calc) VBG Base Excess VBG Potassium Glucose Lactate FiO2 Sodium 133 Potassium 4.0 Chloride 100 Carbon Dioxide 22 Anion Gap 15 BUN 38 H Creatinine 1.5 Est GFR ( Amer) 56 Est GFR (Non-Af Amer) 46 POC Glucose (mg/dL) 221 H Random Glucose 207 H Calcium 9.4 Total Bilirubin 0.8 AST 58 ALT 37 Alkaline Phosphatase 102 Total Protein 8.0 Albumin 4.2 Globulin 3.7 Albumin/Globulin Ratio 1.1 Venous Blood Potassium Urine Color Urine Clarity Urine pH Ur Specific [place] Urine Protein Urine Glucose (UA) Urine Ketones Urine Blood Urine Nitrate Urine Bilirubin Urine Urobilinogen Ur Leukocyte Esterase Urine RBC (Auto) Urine Microscopic WBC Ur Squamous Epith Cells Urine Bacteria Hyaline Casts Influenza Typ A,B (EIA) 12/03/18 12/03/18 12/03/18 13:25 13:25 13:30 WBC RBC Hgb Hct MCV MCH MCHC RDW Plt Count MPV Neut % (Auto) Lymph % (Auto) [place] % (Auto) Eos % (Auto) Baso % (Auto) Neut # (Auto) Lymph # (Auto) [place] # (Auto) Eos # (Auto) Baso # (Auto) Neutrophils % (Manual) Band Neutrophils % Lymphocytes % (Manual) Monocytes % (Manual) Platelet Estimate RBC Morphology PT 12.4 INR 1.1 APTT 29.6 pO2 39 VBG pH 7.42 VBG pCO2 35 L VBG HCO3 23.3 VBG Total CO2 23.8 VBG O2 Sat (Calc) 78.1 H VBG Base Excess -1.3 L VBG Potassium 4.1 Glucose 214 H Lactate 2.3 H FiO2 21.0 Sodium 133.0 Potassium Chloride 99.0 Carbon Dioxide Anion Gap BUN Creatinine Est GFR ( Amer) Est GFR (Non-Af Amer) POC Glucose (mg/dL) Random Glucose Calcium Total Bilirubin AST ALT Alkaline Phosphatase Total Protein Albumin Globulin Albumin/Globulin Ratio Venous Blood Potassium 4.1 Urine Color Urine Clarity Urine pH Ur Specific [place] Urine Protein Urine Glucose (UA) Urine Ketones Urine Blood Urine Nitrate Urine Bilirubin Urine Urobilinogen Ur Leukocyte Esterase Urine RBC (Auto) Urine Microscopic WBC Ur Squamous Epith Cells Urine Bacteria Hyaline Casts Influenza Typ A,B (EIA) Negative for flu a/b 12/03/18 12/03/18 12/03/18 13:36 13:45 17:10 WBC RBC Hgb Hct MCV MCH MCHC RDW Plt Count MPV Neut % (Auto) Lymph % (Auto) [place] % (Auto) Eos % (Auto) Baso % (Auto) Neut # (Auto) Lymph # (Auto) [place] # (Auto) Eos # (Auto) Baso # (Auto) Neutrophils % (Manual) Band Neutrophils % Lymphocytes % (Manual) Monocytes % (Manual) Platelet Estimate RBC Morphology PT INR APTT pO2 22 L VBG pH 7.36 VBG pCO2 42 VBG HCO3 21.8 VBG Total CO2 25.0 VBG O2 Sat (Calc) 40.0 VBG Base Excess -1.8 L VBG Potassium 4.0 Glucose 189 H Lactate 2.9 H FiO2 21.0 Sodium 134.0 Potassium Chloride 101.0 Carbon Dioxide Anion Gap BUN Creatinine Est GFR ( Amer) Est GFR (Non-Af Amer) POC Glucose (mg/dL) 226 H Random Glucose Calcium Total Bilirubin AST ALT Alkaline Phosphatase Total Protein Albumin Globulin Albumin/Globulin Ratio Venous Blood Potassium 4.0 Urine Color Yellow Urine Clarity Slight-cloudy Urine pH 5.0 Ur Specific [place] 1.023 Urine Protein 30 Urine Glucose (UA) Neg Urine Ketones Negative Urine Blood Moderate Urine Nitrate Negative Urine Bilirubin Negative Urine Urobilinogen 0.2-1.0 Ur Leukocyte Esterase Neg Urine RBC (Auto) 16 H Urine Microscopic WBC 3 Ur Squamous Epith Cells < 1 Urine Bacteria Rare Hyaline Casts 3-5 H Influenza Typ A,B (EIA) Assessment & Plan - Assessment and Plan (Free Text) Assessment: A/P: 73 M old male with PMH of HIV/undetected VL, DM-II, HTN, hypothyroidism, BPH, history of lumbar spinal stenosis, and history of bilateral hip arthritis admitted to [facility] for evaluation and treatment of embolic stroke, fever and b/l hip pain. Acute CVA/Embolic etiology - MRI head: few small foci of acute Left PICA teritory infarction in the left posterior crebellar hemisphere - Consult Neurology, Dr. Fontenot, recommendations appreciated, f/u further recs - Consult Cardiology, Dr. De Paz, f/u recommendations - F/u Echocardiogram in morning - C/w Fluids, Swallow eval - F/u CT of abdo/Pelvis and chest - F/u CTA head and Neck - START Aspirin/Statin - PT/OT Sepsis, criteria met with Fever, tachycardia, Leukocytosis and suspected endocarditis/ questionable left infiltrate on CXR - CXR today: official read: no acute disease, COPD - Consult ID, Dr. Garcia, recommendations appreciated - S/p Vanco and Cefepime - START Vanco day#0 - START Cefepime day#0 - F/u Echo - F/u morning CXR - F/u Mycoplasma/leginella/Blood cultures/Urine Cx/Sputum cx - TTE to r/o endocarditis B/l Hip pain with improved weakness and history of bilateral hip arthritis - MRI L-spine: congenitally narrow spinal canal , see official read - Pain management - PT/OT Human Immunodeficiency Virus with undetected Viral load - Chronic, controlled - Consult ID, Dr. Garcia, recommendations appreciated - C/w raltegravir, truvada, prezista, norvir and Famciclovir HTN, Chronic, controlled - Hold HCTZ/home medication for now NIDDM-II - Hold Metformin for now - C/w home medications - Sliding scale/Hypoglycemic protocol - AccuChecks ACHS BPH, Chronic, Controlled - C/w Flomax DVT PPX - Lovenox 40mg SC daily Case discussed with Dr. Steele <Magdalena Steele - Last Filed: 12/05/18 17:18> Results - Vital Signs Recent Vital Signs: Last Vital Signs Temp 98.8 F 12/05/18 16:23 Pulse 101 H 12/05/18 16:23 Resp 20 12/05/18 16:23 BP 132/78 12/05/18 16:23 Pulse Ox 96 12/05/18 16:23 - Labs Result Diagrams: 12/05/18 05:00 12/05/18 05:00 Labs: Laboratory Results - last 24 hr 12/03/18 12/04/18 12/04/18 18:03 11:22 17:03 WBC RBC Hgb Hct MCV MCH MCHC RDW Plt Count MPV Neut % (Auto) Lymph % (Auto) [place] % (Auto) Eos % (Auto) Baso % (Auto) Neut # (Auto) Lymph # (Auto) [place] # (Auto) Eos # (Auto) Baso # (Auto) Sodium Potassium Chloride Carbon Dioxide Anion Gap BUN Creatinine Est GFR ( Amer) Est GFR (Non-Af Amer) POC Glucose (mg/dL) 200 H 151 H Random Glucose Calcium Ur L.pneumophila Ag Negative 12/04/18 12/05/18 12/05/18 21:06 05:00 05:00 WBC 12.0 H RBC 3.48 L Hgb 10.7 L Hct 32.5 L MCV 93.4 MCH 30.8 MCHC 33.0 RDW 14.5 Plt Count 242 MPV 7.4 Neut % (Auto) 84.8 H Lymph % (Auto) 9.9 L [place] % (Auto) 4.3 Eos % (Auto) 0.7 Baso % (Auto) 0.3 Neut # (Auto) 10.2 H Lymph # (Auto) 1.2 [place] # (Auto) 0.5 Eos # (Auto) 0.1 Baso # (Auto) 0.0 Sodium 138 Potassium 4.0 Chloride 107 Carbon Dioxide 24 Anion Gap 11 BUN 20 Creatinine 1.0 Est GFR ( Amer) > 60 Est GFR (Non-Af Amer) > 60 POC Glucose (mg/dL) 186 H Random Glucose 155 H Calcium 8.9 Ur L.pneumophila Ag 12/05/18 12/05/18 12/05/18 05:37 11:29 16:11 WBC RBC Hgb Hct MCV MCH MCHC RDW Plt Count MPV Neut % (Auto) Lymph % (Auto) [place] % (Auto) Eos % (Auto) Baso % (Auto) Neut # (Auto) Lymph # (Auto) [place] # (Auto) Eos # (Auto) Baso # (Auto) Sodium Potassium Chloride Carbon Dioxide Anion Gap BUN Creatinine Est GFR ( Amer) Est GFR (Non-Af Amer) POC Glucose (mg/dL) 162 H 172 H 149 H Random Glucose Calcium Ur L.pneumophila Ag Attending/Attestation - Attestation I have personally seen and examined this patient.: Yes I have fully participated in the care of the patient.: Yes I have reviewed all pertinent clinical information: Yes Notes (Text): Acute CVA Sepsis ? etiology r/o Pneumonia Asymptomatic HIV Hypothyroidism AMS ? Delirium HTN - admit pt to ICU - MRI showed Acute embolic CVA - start ASA, Plavix, statin - Neuro consult - Cardio con sult - Dr De Paz to eval pt for Embolic CVA sourde poss GINA - ECHO wiuth bubble study to r/o thrombus/PFO - CTA of head /Neck - PT,OT and Speech consult - no signs of CNBS infection however we will monitor closely given pt's HIV status - Panculture - Blood , Urine, Sputum - Pt had some cough- will do CT of chest to r/o PNeumonia - Pt also had recent Hernia surgery - will do CT of abd and Pelvis to r/o poss GI/ source of infection - Pt's mental status now back to baseline - neuro deficit - LE weakness improved - Hold antihypertensives to allow for permissive HTN
[2018-12-03 19:39] LABS: HDL CHOLESTEROL 27 MG/DL (30-70)
[2018-12-03 19:49] LABS: LDL CHOLESTEROL 95 mg/dL (0-129)
[2018-12-03] MEDS ORDERED: FAMCICLOVIR 500 MG PO SCH (21:00)
[2018-12-03] MEDS ORDERED: Cefepime 2 GM in Sodium Chloride 0.9% 100 ML IVPB SCH (21:00)
[2018-12-03] MEDS ORDERED: Iodixanol 320 MG/ML 100 ML BOTTLE IV ONE (22:11)
[2018-12-03] MEDS ORDERED: Sodium Chloride 0.9% 50 ML IV ONE ×2 (22:11)
[2018-12-03] MEDS: FAMCICLOVIR 500 MG PO SCH (23:00)
[2018-12-03] MEDS: Enoxaparin 40 mg Syringe SC SCH (23:10)
[2018-12-03] MEDS: Omega-3-Acid Ethyl Esters 1 GM Cap PO SCH (23:13)
[2018-12-03] MEDS: Insulin Lispro (humaLOG) 100 Units/ml Inj SC SCH (23:54)
[2018-12-04] MEDS: Cefepime 2 GM in Sodium Chloride 0.9% 100 ML IVPB SCH ×2 (00:16→09:23)
--- NOTE | 2018-12-04 00:31 | CARD ---
APPROVED REPORT Date of service: 12/03/2018 EKG Measurement Heart [id number] ND [id number] <Conclusion> Sinus tachycardia Right bundle branch block Abnormal ECG
[2018-12-04 05:30] LABS: BASO # 0.1 K/uL (0.0-0.2); BASO % 0.3 % (0.0-2.0); EOS % 0.1 % (0.0-4.0); HEMOGLOBIN 11.4 g/dL (12.0-18.0); LYMPH # 1.1 K/uL (1.0-4.3); LYMPH % 5.5 % (20.0-40.0); MEAN CELL VOLUME 93.6 fl (80.0-94.0); MEAN CORPUSCULAR HEMOGLOBIN 31.5 pg (27.0-31.0); MEAN CORPUSCULAR HGB CONC 33.7 g/dL (33.0-37.0); MEAN PLATELET VOLUME 7.6 fl (7.2-11.7); MONO # 0.7 K/uL (0.0-0.8); MONO % 3.5 % (0.0-10.0); NEUT # 18.5 K/uL (1.8-7.0); NRBC % 0.1 % (0.0-0.0); PLATELET COUNT 243 K/uL (130-400); RBC 3.62 Mil/uL (4.40-5.90); RED CELL DISTRIBUTION WIDTH 14.5 % (11.5-14.5)
[2018-12-04 05:49] LABS: ALBUMIN 3.7 g/dL (3.5-5.0); ALT/SGPT 47 U/L (21-72); AST/SGOT 123 U/L (17-59); BLOOD UREA NITROGEN 29 mg/dl (9-20); CALCIUM 9.1 mg/dL (8.4-10.2); GFR NON-AFRICAN AMERICAN > 60
[2018-12-04 05:58] LABS: NEUT % 90.6 % (50.0-75.0)
[2018-12-04 05:59] LABS: WHITE BLOOD COUNT 20.5 K/uL (4.8-10.8)
[2018-12-04] MEDS: Levothyroxine 50 MCG TAB PO SCH (07:16)
[2018-12-04] MEDS ORDERED: Sodium Chloride 3% for Inhalation 4 ML VIAL.NEB IH PRN (07:35)
--- NOTE | 2018-12-04 07:43 | CP.PCM.PN ---
Subjective - Date & Time of Evaluation Date of Evaluation: 12/04/18 Time of Evaluation: 09:16 - Subjective Subjective: Patient seen and examined this morning at bedside. Patient was sitting upright in chair breathing comfortably with saturating at 94-95% on NC. Patient denies any f/c/n/v/diarrhea, cp or sob. Objective - Vital Signs/Intake and Output Vital Signs (last 24 hours): Temp Pulse Resp BP Pulse Ox 98.9 F 99 H 28 H 143/66 96 12/04/18 01:00 12/04/18 01:00 12/04/18 01:00 12/04/18 01:00 12/04/18 01:00 Intake and Output: 12/04/18 12/04/18 06:59 18:59 Intake Total 1150 Balance 1150 - Medications Medications: Current Medications Aspirin (Aspirin) 325 mg PO DAILY [facility] Atorvastatin Calcium (Lipitor) 40 mg PO DAILY [facility] Darunavir (Prezista) 800 mg PO DAILY [facility]; Protocol Emtricitabine/Tenofovir (Truvada 200 Mg-300 Mg) 1 tab PO DAILY [facility]; Protocol Enoxaparin Sodium (Lovenox) 40 mg SC DAILY [facility]; Protocol Last Admin: 12/03/18 23:10 Dose: 40 mg Home Med (Famciclovir [Famvir]) 500 mg PO Q12 [facility] Last Admin: 12/03/18 23:00 Dose: 500 mg Sodium Chloride (Sodium Chloride 0.9%) 1,000 mls @ 100 mls/hr IV .Q10H [facility] Stop: 12/04/18 18:11 Last Admin: 12/03/18 23:09 Dose: 100 mls/hr Cefepime HCl 2 gm/ Sodium (Chloride) 100 mls @ 100 mls/hr IVPB Q8 [facility]; Protocol Last Admin: 12/04/18 00:16 Dose: 100 mls/hr Vancomycin HCl 1.5 gm/ Sodium (Chloride) 500 mls @ 250 mls/hr IVPB DAILY [facility]; Protocol Ibuprofen (Motrin Tab) 600 mg PO Q8 PRN PRN Reason: Fever >100.4 F Insulin Human Lispro (Humalog) 0 units SC ACHS [facility]; Protocol Last Admin: 12/03/18 23:54 Dose: Not Given Levothyroxine Sodium (Synthroid) 50 mcg PO DAILY@0630 [facility] Last Admin: 12/04/18 07:16 Dose: 50 mcg Multivitamins/Minerals (Therapeutic-M Tab) 1 tab PO DAILY [facility] [id number] Ethyl Esters (Lovaza) 1 gm PO Q12 [facility] Last Admin: 12/03/18 23:13 Dose: 1 gm Raltegravir (Isentress) 400 mg PO Q12 [facility]; Protocol Last Admin: 12/03/18 23:12 Dose: 400 mg Ritonavir (Norvir) 100 mg PO DAILY [facility] Tamsulosin HCl (Flomax) 0.4 mg PO DAILY [facility] - Labs Labs: 12/04/18 04:18 12/04/18 04:18 PT 12.4 Seconds (9.8-13.1) 12/03/18 13:25 INR 1.1 12/03/18 13:25 APTT 29.6 Seconds (25.6-37.1) 12/03/18 13:25 - Constitutional Appears: Non-toxic - Head Exam Head Exam: ATRAUMATIC - Eye Exam Pupil Exam: PERRL - ENT Exam ENT Exam: Mucous Membranes Moist - Respiratory Exam Respiratory Exam: absent: Respiratory Distress Additional comments: left sided crackles near base - Cardiovascular Exam Cardiovascular Exam: REGULAR RHYTHM, +S1, +S2 - GI/Abdominal Exam GI & Abdominal Exam: Soft, Normal Bowel Sounds. absent: Guarding, Rigid, Tenderness - Extremities Exam Extremities Exam: absent: Calf Tenderness - Neurological Exam Neurological Exam: Alert, Awake, Oriented x3 - Psychiatric Exam Psychiatric exam: Normal Mood - Skin Skin Exam: Dry Assessment and Plan - Assessment and Plan (Free Text) Assessment: A/P: 73 M old male with PMH of HIV/undetected VL, DM-II, HTN, hypothyroidism, BPH, history of lumbar spinal stenosis, and history of bilateral hip arthritis admitted to [facility] for evaluation and treatment of embolic stroke, fever and b/l hip pain. Acute CVA/Embolic etiology - MRI head: few small foci of acute Left PICA teritory infarction in the left posterior crebellar hemisphere - FU Dr. Fontenot, recommendations - FU Dr. De Paz recommendations - F/u Echocardiogram report - C/w Fluids, Swallow eval -C/w Aspirin & statin - C/w PT/OT - F/u CT of abdo/Pelvis and chest: awaiting official report - CTA head and Neck: IMPRESSION: 1. No large vessel occlusion of of intracranial arterial circulation. No definite aneurysm or arteriovascular malformation. 2. No significant occlusion or significant stenosis in bilateral common and internal carotid as well as vertebral arteries in the neck. 3. 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 4. Degenerative grade 1 spondylolisthesis C4-5 as per above. Sepsis, criteria met with Fever, tachycardia, Leukocytosis and questionable left infiltrate on CXR -Chest CT: confirmed CXR findings with report stating extensive left lower lobe infiltrate - Dr. Garcia, recommendations appreciated -C/w vanco & start meropenem for broader coverage as per Dr. Garcia -Keep trough below <15 - F/u Echo official report - F/u Mycoplasma/leginella/Blood cultures/Urine Cx/Sputum cx B/l Hip pain with improved weakness and history of bilateral hip arthritis - MRI L-spine: congenitally narrow spinal canal , see official read - Pain management - PT/OT Human Immunodeficiency Virus with undetected Viral load - Chronic, controlled - Dr. Garcia recommendations appreciated - C/w raltegravir, truvada, prezista, norvir and Famciclovir HTN, Chronic, controlled - Cont. Hold HCTZ NIDDM-II - cont to hold Metformin - Sliding scale/Hypoglycemic protocol - Luis BEEBE
[2018-12-04 08:56] LABS: BANDS 12 % (0-2); HYPERSEGMENTATION PRESENT; HYPOCHROMIC SLIGHT; LYMPHOCYTE 5 % (20-50); MONOCYTE 2 % (0-10); NEUTROPHIL 81 % (42-75); PLATELET ESTIMATE NORMAL (NORMAL); TOTAL CELLS COUNTED 100; TOXIC GRANULATION PRESENT
[2018-12-04] MEDS ORDERED: Vancomycin 1.5 GM in Sodium Chloride 0.9% 500 ML IVPB SCH (09:00)
[2018-12-04] MEDS ORDERED: LYSINE PO SCH (09:00)
[2018-12-04] MEDS: FAMCICLOVIR 500 MG PO SCH ×2 (09:20→21:52)
[2018-12-04] MEDS: Insulin Lispro (humaLOG) 100 Units/ml Inj SC SCH ×4 (09:20→22:00)
[2018-12-04] MEDS: Enoxaparin 40 mg Syringe SC SCH (09:22)
[2018-12-04] MEDS: Omega-3-Acid Ethyl Esters 1 GM Cap PO SCH ×2 (09:22→21:52)
[2018-12-04] MEDS: Multivitamin With Minerals Tab PO SCH (09:24)
[2018-12-04] MEDS: Emtricitabine-Tenofovir 200 mg-300 mg Tab PO SCH (09:25)
--- NOTE | 2018-12-04 10:14 | CP.PCM.PN ---
Subjective - Date & Time of Evaluation Date of Evaluation: 12/04/18 Time of Evaluation: 10:14 - Subjective Subjective: ID Note- Patient seen and examined today in ICU. pt. states he feels better. dry cough only. sitting in the chair. states he was able to walk few steps today. had fever again but he denies any chills. denies any abd. pain, denies nay dysurea. denies any ROSENBAUM. Objective - Vital Signs/Intake and Output Vital Signs (last 24 hours): Temp Pulse Resp BP Pulse Ox 98.4 F 93 H 18 131/76 94 L 12/04/18 08:00 12/04/18 08:00 12/04/18 08:00 12/04/18 08:00 12/04/18 08:00 Intake and Output: 12/04/18 12/04/18 06:59 18:59 Intake Total 1150 Balance 1150 - Medications Medications: Current Medications Aspirin (Aspirin) 325 mg PO DAILY [facility] Last Admin: 12/04/18 09:19 Dose: 325 mg Atorvastatin Calcium (Lipitor) 40 mg PO DAILY [facility] Last Admin: 12/04/18 09:22 Dose: 40 mg Darunavir (Prezista) 800 mg PO DAILY [facility]; Protocol Last Admin: 12/04/18 09:24 Dose: 800 mg Emtricitabine/Tenofovir (Truvada 200 Mg-300 Mg) 1 tab PO DAILY [facility]; Protocol Last Admin: 12/04/18 09:25 Dose: 1 tab Enoxaparin Sodium (Lovenox) 40 mg SC DAILY [facility]; Protocol Last Admin: 12/04/18 09:22 Dose: 40 mg Home Med (Famciclovir [Famvir]) 500 mg PO Q12 [facility] Last Admin: 12/04/18 09:20 Dose: 500 mg Sodium Chloride (Sodium Chloride 0.9%) 1,000 mls @ 100 mls/hr IV .Q10H [facility] Stop: 12/04/18 18:11 Last Admin: 12/03/18 23:09 Dose: 100 mls/hr Cefepime HCl 2 gm/ Sodium (Chloride) 100 mls @ 100 mls/hr IVPB Q8 [facility]; Protocol Last Admin: 12/04/18 09:23 Dose: 100 mls/hr Vancomycin HCl 1.5 gm/ Sodium (Chloride) 500 mls @ 250 mls/hr IVPB DAILY [facility]; Protocol Last Admin: 12/04/18 09:27 Dose: 250 mls/hr Ibuprofen (Motrin Tab) 600 mg PO Q8 PRN PRN Reason: Fever >100.4 F Insulin Human Lispro (Humalog) 0 units SC ACHS [facility]; Protocol Last Admin: 12/04/18 09:20 Dose: 2 units Levothyroxine Sodium (Synthroid) 50 mcg PO DAILY@0630 [facility] Last Admin: 12/04/18 07:16 Dose: 50 mcg Multivitamins/Minerals (Therapeutic-M Tab) 1 tab PO DAILY [facility] Last Admin: 12/04/18 09:24 Dose: 1 tab Kwavt-5-Yolj Ethyl Esters (Lovaza) 1 gm PO Q12 [facility] Last Admin: 12/04/18 09:22 Dose: 1 gm Raltegravir (Isentress) 400 mg PO Q12 [facility]; Protocol Last Admin: 12/04/18 09:22 Dose: 400 mg Ritonavir (Norvir) 100 mg PO DAILY [facility] Last Admin: 12/04/18 09:24 Dose: 100 mg Tamsulosin HCl (Flomax) 0.4 mg PO DAILY [facility] Last Admin: 12/04/18 09:20 Dose: 0.4 mg - Labs Labs: - Additional Findings Additional findings: - Constitutional Appears: No Acute Distress - Head Exam Head Exam: ATRAUMATIC - Eye Exam Eye Exam: EOMI, PERRL - ENT Exam ENT Exam: Normal Oropharynx - Neck Exam Neck exam: Positive for: Full Rom Additional comments: supple no meningismus - Respiratory Exam Respiratory Exam: NORMAL BREATHING PATTERN Additional comments: no wheezing faint crackles at bases b/l - Cardiovascular Exam Cardiovascular Exam: RRR, +S1, +S2 - GI/Abdominal Exam GI & Abdominal Exam: Normal Bowel Sounds, Soft Additional comments: NT, ND chronic lypodystrophy - Extremities Exam Extremities exam: Positive for: normal inspection - Neurological Exam Neurological exam: Alert, Oriented x3 Additional comments: strength 5/5 B/L UE and LE sensation intact b/l Laboratory Results - last 72 hr 12/03/18 12/03/18 12/03/18 11:46 13:25 13:25 WBC 24.9 H RBC 3.86 L Hgb 12.0 Hct 36.1 MCV 93.5 MCH 31.0 MCHC 33.2 RDW 14.4 Plt Count 279 MPV 7.5 Neut % (Auto) 92.0 H Lymph % (Auto) 2.5 L Burke % (Auto) 5.3 Eos % (Auto) 0.0 Baso % (Auto) 0.2 Neut # (Auto) 22.9 H Lymph # (Auto) 0.6 L Burke # (Auto) 1.3 H Eos # (Auto) 0.0 Baso # (Auto) 0.1 Neutrophils % (Manual) 89 H Band Neutrophils % 6 H Lymphocytes % (Manual) 2 L Monocytes % (Manual) 3 Hypersegmented Polys Toxic Granulation Platelet Estimate Normal RBC Morphology Normal Hypochromasia (manual) PT INR APTT pO2 VBG pH VBG pCO2 VBG HCO3 VBG Total CO2 VBG O2 Sat (Calc) VBG Base Excess VBG Potassium Glucose Lactate FiO2 Sodium 133 Potassium 4.0 Chloride 100 Carbon Dioxide 22 Anion Gap 15 BUN 38 H Creatinine 1.5 Est GFR ( Amer) 56 Est GFR (Non-Af Amer) 46 POC Glucose (mg/dL) 221 H Random Glucose 207 H Lactic Acid Calcium 9.4 Total Bilirubin 0.8 AST 58 ALT 37 Alkaline Phosphatase 102 Total Protein 8.0 Albumin 4.2 Globulin 3.7 Albumin/Globulin Ratio 1.1 Triglycerides Cholesterol LDL Cholesterol Direct HDL Cholesterol TSH 3rd Generation Venous Blood Potassium Urine Color Urine Clarity Urine pH Ur Specific [place] Urine Protein Urine Glucose (UA) Urine Ketones Urine Blood Urine Nitrate Urine Bilirubin Urine Urobilinogen Ur Leukocyte Esterase Urine RBC (Auto) Urine Microscopic WBC Ur Squamous Epith Cells Urine Bacteria Hyaline Casts Influenza Typ A,B (EIA) 12/03/18 12/03/18 12/03/18 13:25 13:25 13:30 WBC RBC Hgb Hct MCV MCH MCHC RDW Plt Count MPV Neut % (Auto) Lymph % (Auto) Burke % (Auto) Eos % (Auto) Baso % (Auto) Neut # (Auto) Lymph # (Auto) Burke # (Auto) Eos # (Auto) Baso # (Auto) Neutrophils % (Manual) Band Neutrophils % Lymphocytes % (Manual) Monocytes % (Manual) Hypersegmented Polys Toxic Granulation Platelet Estimate RBC Morphology Hypochromasia (manual) PT 12.4 INR 1.1 APTT 29.6 pO2 39 VBG pH 7.42 VBG pCO2 35 L VBG HCO3 23.3 VBG Total CO2 23.8 VBG O2 Sat (Calc) 78.1 H VBG Base Excess -1.3 L VBG Potassium 4.1 Glucose 214 H Lactate 2.3 H FiO2 21.0 Sodium 133.0 Potassium Chloride 99.0 Carbon Dioxide Anion Gap BUN Creatinine Est GFR ( Amer) Est GFR (Non-Af Amer) POC Glucose (mg/dL) Random Glucose Lactic Acid Calcium Total Bilirubin AST ALT Alkaline Phosphatase Total Protein Albumin Globulin Albumin/Globulin Ratio Triglycerides Cholesterol LDL Cholesterol Direct HDL Cholesterol TSH 3rd Generation Venous Blood Potassium 4.1 Urine Color Urine Clarity Urine pH Ur Specific [place] Urine Protein Urine Glucose (UA) Urine Ketones Urine Blood Urine Nitrate Urine Bilirubin Urine Urobilinogen Ur Leukocyte Esterase Urine RBC (Auto) Urine Microscopic WBC Ur Squamous Epith Cells Urine Bacteria Hyaline Casts Influenza Typ A,B (EIA) Negative for flu a/b 12/03/18 12/03/18 12/03/18 13:36 13:45 17:10 WBC RBC Hgb Hct MCV MCH MCHC RDW Plt Count MPV Neut % (Auto) Lymph % (Auto) Burke % (Auto) Eos % (Auto) Baso % (Auto) Neut # (Auto) Lymph # (Auto) Burke # (Auto) Eos # (Auto) Baso # (Auto) Neutrophils % (Manual) Band Neutrophils % Lymphocytes % (Manual) Monocytes % (Manual) Hypersegmented Polys Toxic Granulation Platelet Estimate RBC Morphology Hypochromasia (manual) PT INR APTT pO2 22 L VBG pH 7.36 VBG pCO2 42 VBG HCO3 21.8 VBG Total CO2 25.0 VBG O2 Sat (Calc) 40.0 VBG Base Excess -1.8 L VBG Potassium 4.0 Glucose 189 H Lactate 2.9 H FiO2 21.0 Sodium 134.0 Potassium Chloride 101.0 Carbon Dioxide Anion Gap BUN Creatinine Est GFR ( Amer) Est GFR (Non-Af Amer) POC Glucose (mg/dL) 226 H Random Glucose Lactic Acid Calcium Total Bilirubin AST ALT Alkaline Phosphatase Total Protein Albumin Globulin Albumin/Globulin Ratio Triglycerides Cholesterol LDL Cholesterol Direct HDL Cholesterol TSH 3rd Generation Venous Blood Potassium 4.0 Urine Color Yellow Urine Clarity Slight-cloudy Urine pH 5.0 Ur Specific [place] 1.023 Urine Protein 30 Urine Glucose (UA) Neg Urine Ketones Negative Urine Blood Moderate Urine Nitrate Negative Urine Bilirubin Negative Urine Urobilinogen 0.2-1.0 Ur Leukocyte Esterase Neg Urine RBC (Auto) 16 H Urine Microscopic WBC 3 Ur Squamous Epith Cells < 1 Urine Bacteria Rare Hyaline Casts 3-5 H Influenza Typ A,B (EIA) 12/03/18 12/03/18 12/03/18 19:00 19:42 23:35 WBC RBC Hgb Hct MCV MCH MCHC RDW Plt Count MPV Neut % (Auto) Lymph % (Auto) Burke % (Auto) Eos % (Auto) Baso % (Auto) Neut # (Auto) Lymph # (Auto) Burke # (Auto) Eos # (Auto) Baso # (Auto) Neutrophils % (Manual) Band Neutrophils % Lymphocytes % (Manual) Monocytes % (Manual) Hypersegmented Polys Toxic Granulation Platelet Estimate RBC Morphology Hypochromasia (manual) PT INR APTT pO2 VBG pH VBG pCO2 VBG HCO3 VBG Total CO2 VBG O2 Sat (Calc) VBG Base Excess VBG Potassium Glucose Lactate FiO2 Sodium Potassium Chloride Carbon Dioxide Anion Gap BUN Creatinine Est GFR ( Amer) Est GFR (Non-Af Amer) POC Glucose (mg/dL) 204 H 215 H Random Glucose Lactic Acid Calcium Total Bilirubin AST ALT Alkaline Phosphatase Total Protein Albumin Globulin Albumin/Globulin Ratio Triglycerides 221 H Cholesterol 185 LDL Cholesterol Direct 95 HDL Cholesterol 27 L TSH 3rd Generation Venous Blood Potassium Urine Color Urine Clarity Urine pH Ur Specific [place] Urine Protein Urine Glucose (UA) Urine Ketones Urine Blood Urine Nitrate Urine Bilirubin Urine Urobilinogen Ur Leukocyte Esterase Urine RBC (Auto) Urine Microscopic WBC Ur Squamous Epith Cells Urine Bacteria Hyaline Casts Influenza Typ A,B (EIA) 12/04/18 12/04/18 12/04/18 04:18 04:18 04:18 WBC 20.5 H RBC 3.62 L Hgb 11.4 L Hct 33.9 L MCV 93.6 MCH 31.5 H MCHC 33.7 RDW 14.5 Plt Count 243 MPV 7.6 Neut % (Auto) 90.6 H Lymph % (Auto) 5.5 L Burke % (Auto) 3.5 Eos % (Auto) 0.1 Baso % (Auto) 0.3 Neut # (Auto) 18.5 H Lymph # (Auto) 1.1 Burke # (Auto) 0.7 Eos # (Auto) 0.0 Baso # (Auto) 0.1 Neutrophils % (Manual) 81 H Band Neutrophils % 12 H* Lymphocytes % (Manual) 5 L Monocytes % (Manual) 2 Hypersegmented Polys Present Toxic Granulation Present Platelet Estimate Normal RBC Morphology Hypochromasia (manual) Slight PT INR APTT pO2 VBG pH VBG pCO2 VBG HCO3 VBG Total CO2 VBG O2 Sat (Calc) VBG Base Excess VBG Potassium Glucose Lactate FiO2 Sodium 134 Potassium 3.7 Chloride 103 Carbon Dioxide 22 Anion Gap 13 BUN 29 H Creatinine 1.0 Est GFR ( Amer) > 60 Est GFR (Non-Af Amer) > 60 POC Glucose (mg/dL) Random Glucose 132 H Lactic Acid 1.0 Calcium 9.1 Total Bilirubin 0.7 AST 123 H D ALT 47 Alkaline Phosphatase 96 Total Protein 7.3 Albumin 3.7 Globulin 3.6 Albumin/Globulin Ratio 1.0 Triglycerides Cholesterol LDL Cholesterol Direct HDL Cholesterol TSH 3rd Generation Venous Blood Potassium Urine Color Urine Clarity Urine pH Ur Specific [place] Urine Protein Urine Glucose (UA) Urine Ketones Urine Blood Urine Nitrate Urine Bilirubin Urine Urobilinogen Ur Leukocyte Esterase Urine RBC (Auto) Urine Microscopic WBC Ur Squamous Epith Cells Urine Bacteria Hyaline Casts Influenza Typ A,B (EIA) 12/04/18 12/04/18 06:11 08:49 WBC RBC Hgb Hct MCV MCH MCHC RDW Plt Count MPV Neut % (Auto) Lymph % (Auto) Burke % (Auto) Eos % (Auto) Baso % (Auto) Neut # (Auto) Lymph # (Auto) Burke # (Auto) Eos # (Auto) Baso # (Auto) Neutrophils % (Manual) Band Neutrophils % Lymphocytes % (Manual) Monocytes % (Manual) Hypersegmented Polys Toxic Granulation Platelet Estimate RBC Morphology Hypochromasia (manual) PT INR APTT pO2 VBG pH VBG pCO2 VBG HCO3 VBG Total CO2 VBG O2 Sat (Calc) VBG Base Excess VBG Potassium Glucose Lactate FiO2 Sodium Potassium Chloride Carbon Dioxide Anion Gap BUN Creatinine Est GFR ( Amer) Est GFR (Non-Af Amer) POC Glucose (mg/dL) 155 H Random Glucose Lactic Acid Calcium Total Bilirubin AST ALT Alkaline Phosphatase Total Protein Albumin Globulin Albumin/Globulin Ratio Triglycerides Cholesterol LDL Cholesterol Direct HDL Cholesterol TSH 3rd Generation 1.07 Venous Blood Potassium Urine Color Urine Clarity Urine pH Ur Specific [place] Urine Protein Urine Glucose (UA) Urine Ketones Urine Blood Urine Nitrate Urine Bilirubin Urine Urobilinogen Ur Leukocyte Esterase Urine RBC (Auto) Urine Microscopic WBC Ur Squamous Epith Cells Urine Bacteria Hyaline Casts Influenza Typ A,B (EIA) Accession No. : [id number] Patient Name / ID : CHAPINCITO RESTREPO / [id number] Exam Date : 12/03/2018 22:25:30 ( Approved ) Study Comment : Sex / Age : M / 73Y Creator : Redd Hernandez MD Dictator : Redd Hernandez MD Bank Courier : Valve Setter : Redd Hernandez MD Approver2 : Report Date : 12/04/2018 13:04:57 My Comment : Date of service: 12/03/2018 PROCEDURE: CT Chest without contrast HISTORY: cough, fever, leukocytosis COMPARISON: None available. TECHNIQUE: Contiguous axial images were obtained through the chest without intravenous contrast enhancement. Sagittal and coronal reconstructions were performed. Radiation dose: Total exam DLP = 2208.82 mGy-cm. This CT exam was performed using one or more of the following dose reduction techniques: Automated exposure control, adjustment of the mA and/or kV according to patient size, and/or use of iterative reconstruction technique. FINDINGS: LUNGS: Extensive multi segment left lower lobe infiltrate/pneumonia. MEDIASTINUM: Unremarkable thoracic aorta. No aneurysm. Normal sized heart. Main pulmonary artery unremarkable. No vascular congestion. Small mediastinal lymph nodes likely infectious/inflammatory identified. No aortic atherosclerotic calcification. PLEURA: No pleural fluid. No pneumothorax. BONES: No fracture. No destructive lesion. UPPER ABDOMEN: Grossly unremarkable. OTHER FINDINGS: None. IMPRESSION: Extensive left lower lobe infiltrate/pneumonia Concordant results (preliminary interpretation) provided by [employer]. Procedure Completed: 22:30. Preliminary Report: Interpreted and electronically signed: 23:47. Final Interpretation: 13:04. Accession No. : [id number] Patient Name / ID : CHAPINCITO RESTREPO / [id number] Exam Date : 12/03/2018 15:35:58 ( Approved ) Study Comment : Sex / Age : M / 73Y Creator : Nehal Portillo MD Dictator : Nehal Portillo MD Bank Courier : Valve Setter : Nehal Portillo MD Approver2 : Report Date : 12/03/2018 16:55:53 My Comment : Date of service: 12/03/2018 PROCEDURE: MRI BRAIN WITH AND WITHOUT CONTRAST HISTORY: Resolved AMS, HIV, fever COMPARISON: None available. TECHNIQUE: Multiplanar, multisequence MR images of the brain were obtained with and without intravenous contrast enhancement. 19 cc Omniscan was injected intravenously. FINDINGS: HEMORRHAGE: None DWI: There are few tiny foci of restricted diffusion in the left paramedian posterior inferior cerebellar hemisphere. BRAIN PARENCHYMA: There are mild chronic microangiopathic changes. There is no mass, mass effect or abnormal extra-axial fluid collection. The midline sagittal structures are normal. ENHANCEMENT: No abnormal intracranial enhancement. VENTRICLES: There is mild age-related global parenchymal volume loss and proportionate enlargement of the ventricles and cortical sulci. CRANIUM: There is normal bone marrow signal pattern. ORBITS: Grossly unremarkable. PARANASAL SINUSES/MASTOIDS: There is a moderate right mastoid effusions. The left mastoid air cells are cl ear. The paranasal sinuses are predominantly clear. VASCULAR SYSTEM: There are normal signal voids in the larger intracranial arteries. OTHER FINDINGS: None . IMPRESSION: 1. Few small foci of acute left PICA territory infarctions in the left posterior inferior cerebellar hemisphere. The pattern of distribution suggests embolic etiology. 2. Mild chronic microangiopathic changes and mild age-related global parenchymal volume loss. Important findings were discussed with Dr. Mercedes Sommers in the ER on 12/03/2018 at 4:53 p.m. Assessment and Plan (1) Cerebrovascular accident, embolic Status: Acute (2) HIV (human immunodeficiency virus infection) Status: Acute (3) Leukocytosis Status: Acute (4) Fever Status: Acute (5) Chronic hip pain, bilateral Status: Acute (6) Hypothyroidism Status: Acute - Assessment and Plan (Free Text) Assessment: A/P- 73 year old male with HIV ( well controlled), DM II, HTN, Hypothyroidism, b/l chronic hip pain from arthritis and spinal stenosis admitted with change in MS , weakness and hip pain. clinically much improved. [place]asl status back to normal. low grade fevers leukocytosis trending down Chest CT- extensive left lower lung Pneumonia. MRI of the brain - as per report small foci of acute Left PICA territory infarction UA- neg PLan- await blood and sputum cx. advise to d/c cefepime and start patient on Meropnem for broader gram neg coverage. advise to continue with IV vanco for empiric staph coverage. keep trough <15. await TTE report r/o IE . await Neuro Input . all above d/w patient at length and he verbalizes full understanding of all above and agrees with above plan of care. All labs and imaging and chart notes reviewed. critical care time spent 60 minutes.
--- NOTE | 2018-12-04 10:30 | RAD ---
Date of service: 12/04/2018 PROCEDURE: CHEST RADIOGRAPH, 1 VIEW HISTORY: Sepsis COMPARISON: 12/03/2018 FINDINGS: LUNGS: Clear. PLEURA: No pneumothorax or pleural fluid seen. CARDIOVASCULAR: No aortic atherosclerotic calcification present. Normal. OSSEOUS STRUCTURES: No significant abnormalities. VISUALIZED UPPER ABDOMEN: Normal. OTHER FINDINGS: None. IMPRESSION: No active disease.
--- NOTE | 2018-12-04 10:39 | CP.CCUPN ---
CCU Subjective - Physician Review Subjective (Free Text): Uneventful night, awake, alert, oriented x3, no new weakness nor any focal deficits. 101.8F temp spike on admission. Temps defervesced after midnight, no further fever spikes. SBP 130-140s, HR 100s, RR 18, SPO2 94% on NC. ROS: No other pertinent negs or positives on 10+ system review PMSFH: All other Nursing and physician documentation reviewed to date; no new pertinent info noted relevant to current medical problems. EXAM- HEENT: no icterus, no gaze preference, pupils 3 mm equal and reactive, no nystagmus, +gag NECK: no JVD visible, supple, carotids equal upstroke bilat/no bruit CHEST: decreased BS at the bases, no wheezes audible HEART: regular, distant S1S2, no rubs ABD: soft, no distension, no focal tenderness, no tympany, no guarding, no organomegaly, BS hypoactive. EXT: trace LE edema, no mottling; no calf tenderness or palpable cords, distal pulses intact and symmetrical NEURO: no gross focal motor deficits, plantars downgoing bilat, sensory intact bilat SKIN: no rashes, warm and dry. LABS: WBC= 20.5 HGB= 11.4 PLTs= 243K Na= 134 K= 3.7 CL= 103 HCO3= 22 BUN/Cr= 29/1.0 BS= 132 CXR: (my interp): mild LLL peripheral haziness. CT: results reviewed. IMPRESSION / MAJOR PROBLEMS NOW: 1. Acute Left Cerebellar embolic Stroke 2. Sepsis, without Shock state, 2 LLL Pneumonia 3. HTN 4. HIV Disease 5. h/o Chronic Hip Arthritis / DJD. 6. h/o DM II PLAN: 1. ASA, Statin, Neurochecks, Seizure precautions, HOB elevation, DVT prophylaxis with Lovenox. 2. ECHO, CTA 3. Watch BP trends, treat if MAP exceeds 110-120. 4. Empiric abx coverage started in ED. 5. PT/OT evals. 6. Continue HAART meds. 7. Tele bed
--- NOTE | 2018-12-04 13:10 | CT ---
Date of service: 12/03/2018 PROCEDURE: CT Chest without contrast HISTORY: cough, fever, leukocytosis COMPARISON: None available. TECHNIQUE: Contiguous axial images were obtained through the chest without intravenous contrast enhancement. Sagittal and coronal reconstructions were performed. Radiation dose: Total exam DLP = 2208.82 mGy-cm. This CT exam was performed using one or more of the following dose reduction techniques: Automated exposure control, adjustment of the mA and/or kV according to patient size, and/or use of iterative reconstruction technique. FINDINGS: LUNGS: Extensive multi segment left lower lobe infiltrate/pneumonia. MEDIASTINUM: Unremarkable thoracic aorta. No aneurysm. Normal sized heart. Main pulmonary artery unremarkable. No vascular congestion. Small mediastinal lymph nodes likely infectious/inflammatory identified. No aortic atherosclerotic calcification. PLEURA: No pleural fluid. No pneumothorax. BONES: No fracture. No destructive lesion. UPPER ABDOMEN: Grossly unremarkable. OTHER FINDINGS: None. IMPRESSION: Extensive left lower lobe infiltrate/pneumonia Concordant results (preliminary interpretation) provided by [employer]. Procedure Completed: 22:30. Preliminary Report: Interpreted and electronically signed: 23:47. Final Interpretation: 13:04.
--- NOTE | 2018-12-04 13:29 | CT ---
Date of service: 12/03/2018 PROCEDURE: CT Angiography of the Brain and neck. HISTORY: acute CVA COMPARISON: None available. TECHNIQUE: CT angiography of the head and neck was performed following intravenous contrast administration. Coronal and sagittal maximum intensity projection reformatted images were generated. Contrast Dose: Visipaque 320, 100 cc Radiation dose: Total exam DLP = 2208.83 mGy-cm. This CT exam was performed using one or more of the following dose reduction techniques: Automated exposure control, adjustment of the mA and/or kV according to patient size, and/or use of iterative reconstruction technique. FINDINGS: INTERNAL CEREBRAL ARTERIES: Note is made of partially calcified atherosclerosis of the bilateral cavernous internal carotid artery segments without significant stenosis. The skull base, petrous, and supraclinoid segments are bilaterally widely patent. ANTERIOR CEREBRAL ARTERIES: Unremarkable. A1 and A2 segments are widely patent. Smaller distal branches unremarkable, as visualized. MIDDLE CEREBRAL ARTERIES: Unremarkable. M1 and M2 segments are widely patent. Perisylvian branches grossly symmetric. POSTERIOR CIRCULATION: Basilar Artery: Unremarkable. Distal Vertebral Arteries: Right dominant vertebrobasilar circulation identified. Posterior Cerebral Arteries: Unremarkable. Posterior Inferior Cerebellar Arteries: Unremarkable. NECK CTA: Aortic Arch: Conjoint origin left common carotid artery with brachiocephalic artery. Common Carotid arteries: The bilateral common carotid appear widely patent from their origins to their bifurcations with no significant stenosis appreciated. No evidence to suggest common carotid artery dissection. Internal Carotid arteries: No significant stenosis is appreciated throughout the cervical internal carotid artery segments bilaterally and there is no evidence of dissection either. External Carotid arteries: Appear unremarkable bilaterally. Vertebral arteries: The bilateral vertebral arteries appear normal in caliber from their origins to their distal cervical segments. No significant stenosis or definite pattern of dissection. ANEURYSM/ VASCULAR MALFORMATIONS: None. OTHER FINDINGS: Atrophic thyroid gland. Incidental note is also made of grade 1 spondylolisthesis on a degenerative basis of C4 anterior to C5 by less than 1 cm. Diffuse multilevel facet joint degenerative arthropathy is prominent as well as multilevel spondylosis. IMPRESSION: 1. No large vessel occlusion of of intracranial arterial circulation. No definite aneurysm or arteriovascular malformation. 2. No significant occlusion or significant stenosis in bilateral common and internal carotid as well as vertebral arteries in the neck. 3. 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 4. Degenerative grade 1 spondylolisthesis C4-5 as per above. Concordant preliminary report from [facility], 12/03/2018, 11:44 p.m..
--- NOTE | 2018-12-04 15:05 | CT ---
Date of service: 12/03/2018 PROCEDURE: CT Abdomen and Pelvis with contrast HISTORY: fever, leukocytosis, recent hernia surgery COMPARISON: None. TECHNIQUE: Contrast dose: 99 mL Visipaque 320 Radiation dose: Total exam DLP = 2208.82 mGy-cm. This CT exam was performed using one or more of the following dose reduction techniques: Automated exposure control, adjustment of the mA and/or kV according to patient size, and/or use of iterative reconstruction technique. FINDINGS: LOWER THORAX: Left lower lobe consolidation. Suspicious for pneumonia. LIVER: Unremarkable. No gross lesion or ductal dilatation. GALLBLADDER AND BILE DUCTS: Unremarkable. PANCREAS: Unremarkable. No gross lesion or ductal dilatation. SPLEEN: Unremarkable. ADRENALS: Unremarkable. No mass. KIDNEYS AND URETERS: Unremarkable. No hydronephrosis. No solid mass. VASCULATURE: Unremarkable. No aortic aneurysm. No aortic atherosclerotic calcification or mural plaque present. BOWEL: Unremarkable. No obstruction. No gross mural thickening. APPENDIX: Normal appendix. PERITONEUM: No ascites or pneumoperitoneum. There is a fluid collection in the left inguinal canal not communicating with the peritoneal cavity. The included portion of this collection measures approximately 4.6 x 3.9 cm in greatest cross section. No surrounding inflammatory change. Possible abscess or postoperative seroma. The fluid measures 2 Hounsfield units in attenuation. LYMPH NODES: Unremarkable. No enlarged lymph nodes. BLADDER: Unremarkable. REPRODUCTIVE: Normal prostate BONES: No acute fracture. OTHER FINDINGS: None. IMPRESSION: Suspect left lower lobe pneumonia. Fluid collection in left inguinal canal which may be sterile postoperative seroma or abscess. This is only partially included in this examination. No surrounding inflammatory change. Minor findings as above.
[2018-12-04] MEDS ORDERED: Meropenem 1 GM in Sodium Chloride 0.9% 100 ML IVPB SCH (17:00)
--- NOTE | 2018-12-04 19:42 | CP.PCM.CON ---
History of Present Illness - History of Present Illness History of Present Illness: Consultation for evaluation of embolic CVA HPI: Yusef is a pleasant 73-year-old male with past medical history significant for HIV hypertension diabetes mellitus hypothyroidism history of lumbar stenosis and bilateral hip arthritis who was admitted yesterday for evaluation of treatment of possible embolic stroke. Patient presented to the ER complaining of lower extremity weakness which he could not get up and later in the evening. His family member who happened to be a nurse evaluated his symptoms and what concern for a possible stroke and told him to come to the emergency room patient was recently evaluated by me in September for preoperative cardiovascular stratification underwent echocardiogram and nuclear stress test both of which were essentially unremarkable. The MRI shows stroke in the Distribution PICA. The head CTA shows atherosclerosis calcific changes in the internal carotid at the level of the cavernous sinus. Based on these presentations etiology of stroke is most likely secondary to atherosclerotic vascular disease and not from a thromboembolic phenomena. Patient has clearly improvement in his symptoms. Past medical history as stated above significant for hypertension diabetes hypothyroidism BPH history of lumbar stenosis bilateral hip arthritis and HIV past surgical history significant for recent inguinal hernia repair allergies no known drug allergies social history denies history of smoking alcohol or illicit drug use family history significant for heart disease and COPD. Review of Systems - Review of Systems Systems not reviewed;Unavailable: Acuity of Condition - Constitutional Constitutional: As Per HPI - EENT Eyes: As Per HPI Ears: As Per HPI Nose/Mouth/Throat: As Per HPI - Cardiovascular Cardiovascular: As Per HPI - Respiratory Respiratory: As Per HPI - Gastrointestinal Gastrointestinal: As Per HPI - Genitourinary Genitourinary: As Per HPI - Reproductive: Male Reproductive:Male: As Per HPI - Musculoskeletal Musculoskeletal: As Per HPI - Integumentary Integumentary: As Per HPI - Neurological Neurological: As Per HPI - Psychiatric Psychiatric: As Per HPI - Endocrine Endocrine: As Per HPI - Hematologic/Lymphatic Hematologic: As Per HPI Past Patient History - Infectious Disease Hx of Infectious Diseases: None - Past Social History Smoking Status: Former Smoker - CARDIAC Hx Hypercholesterolemia: Yes Hx Hypertension: Yes - PULMONARY Hx Respiratory Disorders: No - NEUROLOGICAL Hx Neurological Disorder: No - HEENT Hx HEENT Problems: No - RENAL Hx Chronic Kidney Disease: No - ENDOCRINE/METABOLIC Hx Diabetes Mellitus Type 2: Yes Hx Hypothyroidism: Yes - HEMATOLOGICAL/ONCOLOGICAL Hx Human Immunodeficiency Virus (HIV): Yes - INTEGUMENTARY Hx Dermatological Problems: No - MUSCULOSKELETAL/RHEUMATOLOGICAL Hx Musculoskeletal Disorders: Yes Hx Falls: No Hx Spinal Stenosis: Yes - GENITOURINARY/GYNECOLOGICAL Hx Genitourinary Disorders: No - PSYCHIATRIC Hx Psychophysiologic Disorder: No Hx Substance Use: No - SURGICAL HISTORY Hx Surgeries: Yes Other/Comment: hernia removal 10/2018 - ANESTHESIA Hx Anesthesia: Yes Hx Anesthesia Reactions: No Hx Malignant Hyperthermia: No Has any member of the family had a problem w/ anesthesia?: No Meds Allergies/Adverse Reactions: Allergies Allergy/AdvReac Type Severity Reaction Status Date / Time No Known Allergies Allergy Verified 10/10/18 08:05 - Medications Medications: Current Medications Aspirin (Aspirin) 325 mg PO DAILY [facility] Last Admin: 12/04/18 09:19 Dose: 325 mg Atorvastatin Calcium (Lipitor) 40 mg PO DAILY [facility] Last Admin: 12/04/18 09:22 Dose: 40 mg Darunavir (Prezista) 800 mg PO DAILY [facility]; Protocol Last Admin: 12/04/18 09:24 Dose: 800 mg Emtricitabine/Tenofovir (Truvada 200 Mg-300 Mg) 1 tab PO DAILY [facility]; Protocol Last Admin: 12/04/18 09:25 Dose: 1 tab Enoxaparin Sodium (Lovenox) 40 mg SC DAILY [facility]; Protocol Last Admin: 12/04/18 09:22 Dose: 40 mg Home Med (Famciclovir [Famvir]) 500 mg PO Q12 [facility] Last Admin: 12/04/18 09:20 Dose: 500 mg Meropenem 1 gm/ Sodium (Chloride) 100 mls @ 100 mls/hr IVPB Q8 [facility]; Protocol Vancomycin HCl 1,250 mg/ (Sodium Chloride) 250 mls @ 166.667 mls/hr IVPB Q12H [facility]; Protocol Ibuprofen (Motrin Tab) 600 mg PO Q8 PRN PRN Reason: Fever >100.4 F Insulin Human Lispro (Humalog) 0 units SC ACHS [facility]; Protocol Last Admin: 12/04/18 13:37 Dose: 3 units Levothyroxine Sodium (Synthroid) 50 mcg PO DAILY@0630 [facility] Last Admin: 12/04/18 07:16 Dose: 50 mcg Multivitamins/Minerals (Therapeutic-M Tab) 1 tab PO DAILY [facility] Last Admin: 12/04/18 09:24 Dose: 1 tab Stdwj-5-[id number] Ethyl Esters (Lovaza) 1 gm PO Q12 [facility] Last Admin: 12/04/18 09:22 Dose: 1 gm Raltegravir (Isentress) 400 mg PO Q12 [facility]; Protocol Last Admin: 12/04/18 09:22 Dose: 400 mg Ritonavir (Norvir) 100 mg PO DAILY [facility] Last Admin: 12/04/18 09:24 Dose: 100 mg Tamsulosin HCl (Flomax) 0.4 mg PO DAILY [facility] Last Admin: 12/04/18 09:20 Dose: 0.4 mg Physical Exam - Constitutional Appears: Well - Head Exam Head Exam: ATRAUMATIC, NORMAL INSPECTION, NORMOCEPHALIC - Eye Exam Eye Exam: EOMI, Normal appearance, PERRL Pupil Exam: NORMAL ACCOMODATION, PERRL - ENT Exam ENT Exam: Mucous Membranes Moist, Normal Exam - Neck Exam Neck exam: Positive for: Normal Inspection - Respiratory Exam Respiratory Exam: Clear to Auscultation Bilateral, NORMAL BREATHING PATTERN - Cardiovascular Exam Cardiovascular Exam: REGULAR RHYTHM - GI/Abdominal Exam GI & Abdominal Exam: Normal Bowel Sounds, Soft. absent: Tenderness - Extremities Exam Extremities exam: Positive for: normal inspection - Back Exam Back exam: NORMAL INSPECTION - Neurological Exam Neurological exam: Alert, CN II-XII Intact, Normal Gait, Oriented x3, Reflexes Normal - Psychiatric Exam Psychiatric exam: Normal Affect, Normal Mood - Skin Skin Exam: Dry, Intact, Normal Color, Warm Results - Vital Signs Recent Vital Signs: Last Vital Signs Temp 98 F 12/04/18 18:00 Pulse 95 H 12/04/18 18:00 Resp 18 12/04/18 18:00 BP 121/65 12/04/18 18:00 Pulse Ox 95 12/04/18 18:00 - Labs Result Diagrams: 12/04/18 04:18 12/04/18 04:18 Labs: Laboratory Results - last 24 hr 12/03/18 12/03/18 12/03/18 19:00 19:42 23:35 WBC RBC Hgb Hct MCV MCH MCHC RDW Plt Count MPV Neut % (Auto) Lymph % (Auto) [place] % (Auto) Eos % (Auto) Baso % (Auto) Neut # (Auto) Lymph # (Auto) [place] # (Auto) Eos # (Auto) Baso # (Auto) Neutrophils % (Manual) Band Neutrophils % Lymphocytes % (Manual) Monocytes % (Manual) Hypersegmented Polys Toxic Granulation Platelet Estimate Hypochromasia (manual) Sodium Potassium Chloride Carbon Dioxide Anion Gap BUN Creatinine Est GFR ( Amer) Est GFR (Non-Af Amer) POC Glucose (mg/dL) 204 H 215 H Random Glucose Lactic Acid Calcium Total Bilirubin AST ALT Alkaline Phosphatase Total Protein Albumin Globulin Albumin/Globulin Ratio LDL Cholesterol Direct 95 TSH 3rd Generation 12/04/18 12/04/18 12/04/18 04:18 04:18 04:18 WBC 20.5 H RBC 3.62 L Hgb 11.4 L Hct 33.9 L MCV 93.6 MCH 31.5 H MCHC 33.7 RDW 14.5 Plt Count 243 MPV 7.6 Neut % (Auto) 90.6 H Lymph % (Auto) 5.5 L [place] % (Auto) 3.5 Eos % (Auto) 0.1 Baso % (Auto) 0.3 Neut # (Auto) 18.5 H Lymph # (Auto) 1.1 [place] # (Auto) 0.7 Eos # (Auto) 0.0 Baso # (Auto) 0.1 Neutrophils % (Manual) 81 H Band Neutrophils % 12 H* Lymphocytes % (Manual) 5 L Monocytes % (Manual) 2 Hypersegmented Polys Present Toxic Granulation Present Platelet Estimate Normal Hypochromasia (manual) Slight Sodium 134 Potassium 3.7 Chloride 103 Carbon Dioxide 22 Anion Gap 13 BUN 29 H Creatinine 1.0 Est GFR ( Amer) > 60 Est GFR (Non-Af Amer) > 60 POC Glucose (mg/dL) Random Glucose 132 H Lactic Acid 1.0 Calcium 9.1 Total Bilirubin 0.7 AST 123 H D ALT 47 Alkaline Phosphatase 96 Total Protein 7.3 Albumin 3.7 Globulin 3.6 Albumin/Globulin Ratio 1.0 LDL Cholesterol Direct TSH 3rd Generation 12/04/18 12/04/18 06:11 08:49 WBC RBC Hgb Hct MCV MCH MCHC RDW Plt Count MPV Neut % (Auto) Lymph % (Auto) [place] % (Auto) Eos % (Auto) Baso % (Auto) Neut # (Auto) Lymph # (Auto) [place] # (Auto) Eos # (Auto) Baso # (Auto) Neutrophils % (Manual) Band Neutrophils % Lymphocytes % (Manual) Monocytes % (Manual) Hypersegmented Polys Toxic Granulation Platelet Estimate Hypochromasia (manual) Sodium Potassium Chloride Carbon Dioxide Anion Gap BUN Creatinine Est GFR ( Amer) Est GFR (Non-Af Amer) POC Glucose (mg/dL) 155 H Random Glucose Lactic Acid Calcium Total Bilirubin AST ALT Alkaline Phosphatase Total Protein Albumin Globulin Albumin/Globulin Ratio LDL Cholesterol Direct TSH 3rd Generation 1.07 Assessment & Plan (1) Cerebrovascular accident, embolic Assessment and Plan: reviewed patient's CVA distribution with neurologist who agrees for etiology to be 2' to atherosclerotic vascular disease asa, statin, acei, bb no indication for GINA at this time Status: Acute (2) HIV (human immunodeficiency virus infection) Status: Acute (3) Hypothyroidism Status: Acute
--- NOTE | 2018-12-04 23:03 | CARD ---
APPROVED REPORT Date of service: 12/04/2018 EKG Measurement Heart [id number] <Conclusion> Normal sinus rhythm Right bundle branch block Abnormal ECG
--- NOTE | 2018-12-04 23:18 | CARD ---
APPROVED REPORT Date of service: 12/04/2018 EXAM: Two-dimensional and M-mode echocardiogram with Doppler, color Doppler with bubble study. Other Information Quality : GoodRhythm : NSR INDICATION CVA/TIA Echo Enhancing Agent Indication: Rule Out Septal Defect Agent/Amount Used: Definity 2D DIMENSIONS IVSd1.46 (0.7-1.1cm)LVDd4.98 (3.9-5.9cm) LVOT Diameter2.35 (1.8-2.4cm)PWd1.10 (0.7-1.1cm) IVSs1.36 (0.8-1.2cm)LVDs3.77 (2.5-4.0cm) FS (%) 24.3 %PWs1.18 (0.8-1.2cm) Aortic Valve AoV Peak Kcgqntwi477.8cm/sAoV VTI29.1cmAO Peak GR.14mmHg LVOT Peak Cbvbydzz017.9cm/sLVOT VTI17.13cmAO Mean GR.8mmHg ALVINO (VMAX)1.65iv4KJC (VTI)1.14cm2 Mitral Valve MV E Brqhcuyy72.3cm/sMV DECEL [id number] A Bwjhmepl93.5cm/s MV VJY89wtO/A ratio1.0MVA (PHT)2.56cm2 TDI Lateral E' Peak V13.36cm/sMedial E' Peak V8.80cm/sE/Lateral E'4.7 E/Medial E'7.2 Tricuspid Valve TR Peak Igtzwmvv348wv/sRAP XXYVEJCL63rzClFC Peak Gr.27mmHg SUCG92srTl LEFT VENTRICLE The left ventricle is normal size. There is borderline to mild concentric left ventricular hypertrophy. The left ventricular systolic function is normal. The estimated ejection fraction is 55-60% No regional wall motion abnormalities noted.. Transmitral Doppler flow pattern is Grade II-pseudonormal filling dynamics. No left ventricle thrombus noted on this study. There is no ventricular septal defect visualized. There is no left ventricular aneurysm. There is no mass noted in the left ventricle. RIGHT VENTRICLE The right ventricle is normal size. There is normal right ventricular wall thickness. The right ventricular systolic function is normal. ATRIA The left atrium is moderately dilated. The right atrium size is normal. The interatrial septum is intact with no evidence for an atrial septal defect. AORTIC VALVE The aortic valve is normal in structure. No aortic regurgitation is present. There is no aortic valvular stenosis. There is no aortic valvular vegetation. MITRAL VALVE The mitral valve is normal in structure. There is no evidence of mitral valve prolapse. There is no mitral valve stenosis. There is mild mitral valve regurgitation noted. TRICUSPID VALVE The tricuspid valve is normal in structure. There is mild tricuspid valve regurgitation noted. RVSP is calculated at 32 mm Hg. There is no tricuspid valve prolapse or vegetation. There is no tricuspid valve stenosis. PULMONIC VALVE The pulmonary valve is normal in structure. There is no pulmonic valvular regurgitation. There is no pulmonic valvular stenosis. GREAT VESSELS The aortic root is normal in size. The ascending aorta is normal in size. The pulmonary artery is normal. The IVC is normal in size and collapses >50% with inspiration. PERICARDIAL EFFUSION There is no pericardial effusion. There is no pleural effusion. <Conclusion> There is borderline to mild concentric left ventricular hypertrophy. The estimated ejection fraction is 55-60% Transmitral Doppler flow pattern is Grade II-pseudonormal filling dynamics. The left atrium is moderately dilated. The interatrial septum is intact with no evidence for an atrial septal defect. There is mild mitral valve regurgitation noted. There is mild tricuspid valve regurgitation noted. RVSP is calculated at 32 mm Hg.
[2018-12-05] MEDS: Meropenem 1 GM in Sodium Chloride 0.9% 100 ML IVPB SCH ×3 (01:14→17:27)
[2018-12-05 05:35] LABS: BASO % 0.3 % (0.0-2.0); EOS # 0.1 K/uL (0.0-0.7); EOS % 0.7 % (0.0-4.0); HEMOGLOBIN 10.7 g/dL (12.0-18.0); LYMPH # 1.2 K/uL (1.0-4.3); LYMPH % 9.9 % (20.0-40.0); MEAN CELL VOLUME 93.4 fl (80.0-94.0); MEAN CORPUSCULAR HEMOGLOBIN 30.8 pg (27.0-31.0); MEAN PLATELET VOLUME 7.4 fl (7.2-11.7); MONO # 0.5 K/uL (0.0-0.8); MONO % 4.3 % (0.0-10.0); NEUT # 10.2 K/uL (1.8-7.0); NEUT % 84.8 % (50.0-75.0); RBC 3.48 Mil/uL (4.40-5.90); RED CELL DISTRIBUTION WIDTH 14.5 % (11.5-14.5)
[2018-12-05 06:14] LABS: BLOOD UREA NITROGEN 20 mg/dl (9-20); CALCIUM 8.9 mg/dL (8.4-10.2); GFR NON-AFRICAN AMERICAN > 60
[2018-12-05] MEDS: Levothyroxine 50 MCG TAB PO SCH (06:49)
[2018-12-05] MEDS: Insulin Lispro (humaLOG) 100 Units/ml Inj SC SCH ×4 (08:47→23:31)
[2018-12-05] MEDS: FAMCICLOVIR 500 MG PO SCH ×2 (08:48→21:37)
[2018-12-05] MEDS: Omega-3-Acid Ethyl Esters 1 GM Cap PO SCH ×2 (08:49→21:38)
[2018-12-05] MEDS: Multivitamin With Minerals Tab PO SCH (08:50)
[2018-12-05] MEDS: Enoxaparin 40 mg Syringe SC SCH (08:50)
[2018-12-05] MEDS: Emtricitabine-Tenofovir 200 mg-300 mg Tab PO SCH (08:51)
--- NOTE | 2018-12-05 11:33 | CP.PCM.PN ---
<Shelby Mehta - Last Filed: 12/05/18 13:25> Subjective - Date & Time of Evaluation Date of Evaluation: 12/05/18 Time of Evaluation: 09:16 - Subjective Subjective: Patient seen and examined this morning sitting upright in bed breathing comfortably. Patient states he feels better. He states he continues to have nonproductive cough. Denies any f/c/chest pain or sob. Objective - Vital Signs/Intake and Output Vital Signs (last 24 hours): Temp Pulse Resp BP Pulse Ox 98.0 F 85 20 150/85 94 L 12/05/18 08:40 12/05/18 08:40 12/05/18 08:40 12/05/18 08:40 12/05/18 08:40 - Medications Medications: Current Medications Aspirin (Aspirin) 325 mg PO DAILY [facility] Last Admin: 12/05/18 10:01 Dose: 325 mg Atorvastatin Calcium (Lipitor) 40 mg PO DAILY [facility] Last Admin: 12/05/18 08:49 Dose: 40 mg Darunavir (Prezista) 800 mg PO DAILY [facility]; Protocol Last Admin: 12/05/18 08:50 Dose: 800 mg Emtricitabine/Tenofovir (Truvada 200 Mg-300 Mg) 1 tab PO DAILY [facility]; Protocol Last Admin: 12/05/18 08:51 Dose: 1 tab Enoxaparin Sodium (Lovenox) 40 mg SC DAILY [facility]; Protocol Last Admin: 12/05/18 08:50 Dose: 40 mg Home Med (Famciclovir [Famvir]) 500 mg PO Q12 [facility] Last Admin: 12/05/18 08:48 Dose: 500 mg Meropenem 1 gm/ Sodium (Chloride) 100 mls @ 100 mls/hr IVPB Q8H [facility]; Protocol Last Admin: 12/05/18 10:04 Dose: 100 mls/hr Vancomycin HCl 1,250 mg/ (Sodium Chloride) 250 mls @ 166.667 mls/hr IVPB Q12@1000,2200 [facility]; Protocol Ibuprofen (Motrin Tab) 600 mg PO Q8 PRN PRN Reason: Fever >100.4 F Insulin Human Lispro (Humalog) 0 units SC ACHS [facility]; Protocol Last Admin: 12/05/18 08:47 Dose: 2 units Levothyroxine Sodium (Synthroid) 50 mcg PO DAILY@0630 [facility] Last Admin: 12/05/18 06:49 Dose: 50 mcg Multivitamins/Minerals (Therapeutic-M Tab) 1 tab PO DAILY [facility] Last Admin: 12/05/18 08:50 Dose: 1 tab Eouww-9-[id number] Ethyl Esters (Lovaza) 1 gm PO Q12 [facility] Last Admin: 12/05/18 08:49 Dose: 1 gm Raltegravir (Isentress) 400 mg PO Q12 [facility]; Protocol Last Admin: 12/05/18 08:49 Dose: 400 mg Ritonavir (Norvir) 100 mg PO DAILY [facility] Last Admin: 12/04/18 09:24 Dose: 100 mg Tamsulosin HCl (Flomax) 0.4 mg PO DAILY [facility] Last Admin: 12/05/18 08:48 Dose: 0.4 mg - Labs Labs: 12/05/18 05:00 12/05/18 05:00 PT 12.4 Seconds (9.8-13.1) 12/03/18 13:25 INR 1.1 12/03/18 13:25 APTT 29.6 Seconds (25.6-37.1) 12/03/18 13:25 - Constitutional Appears: Non-toxic - Head Exam Head Exam: NORMAL INSPECTION - Eye Exam Pupil Exam: PERRL - ENT Exam ENT Exam: Mucous Membranes Moist - Respiratory Exam Respiratory Exam: absent: Respiratory Distress Additional comments: crackles at left lower lung bases - Cardiovascular Exam Cardiovascular Exam: REGULAR RHYTHM, +S1, +S2 - GI/Abdominal Exam GI & Abdominal Exam: Soft, Normal Bowel Sounds. absent: Guarding, Rigid, Tenderness - Extremities Exam Extremities Exam: absent: Calf Tenderness - Neurological Exam Neurological Exam: Alert, Awake, Oriented x3 - Psychiatric Exam Psychiatric exam: Normal Mood - Skin Skin Exam: Dry Assessment and Plan - Assessment and Plan (Free Text) Assessment: A/P: 73 M old male with PMH of HIV/undetected VL, DM-II, HTN, hypothyroidism, BPH, history of lumbar spinal stenosis, and history of bilateral hip arthritis admitted to [facility] for evaluation and treatment of embolic stroke, fever and b/l hip pain. Acute CVA/Embolic etiology - MRI head: few small foci of acute Left PICA teritory infarction in the left posterior crebellar hemisphere - Dr. Fontenot, recommendations- c.w aspirin & statin - Dr. De Paz recommendations- no indication for GINA as this time - Echocardiogram neg for any valvular pathology - C/w PT/OT - CTA head and Neck: no large vessel occlusion of intracranial arterial circulation IMPRESSION: 1. No large vessel occlusion of of intracranial arterial circulation. No definite aneurysm or arteriovascular malformation. 2. No significant occlusion or significant stenosis in bilateral common and internal carotid as well as vertebral arteries in the neck. 3. 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 4. Degenerative grade 1 spondylolisthesis C4-5 as per above. Sepsis, criteria met with Fever, tachycardia, Leukocytosis due to LLL pneumonia -Chest CT: confirmed CXR findings with report stating extensive left lower lobe infiltrate - Dr. Garcia, recommendations appreciated -C/w vanco DAY 2 & meropenem DAY 1 for broader coverage as per Dr. Garcia -Keep trough below <15 - Echo negative for any valvular pathology - Mycoplasma/leginella- negative; Blood cultures &Urine Cx- negative; FU Sputum cx CAP (LLL) -Blood & urine cx neg C/w vanco DAY 2 & meropenem DAY 1 B/l Hip pain with improved weakness and history of bilateral hip arthritis - MRI L-spine: congenitally narrow spinal canal; - Pain management - PT/OT Human Immunodeficiency Virus with undetected Viral load - Chronic, controlled - Dr. Garcia recommendations appreciated - C/w raltegravir, truvada, prezista, Famciclovir HTN, Chronic, controlled - Cont. Hold HCTZ NIDDM-II - cont to hold Metformin - Sliding scale/Hypoglycemic protocol - AccuChecks ACHS <Magdalena Steele - Last Filed: 12/05/18 17:24> Objective - Vital Signs/Intake and Output Vital Signs (last 24 hours): Temp Pulse Resp BP Pulse Ox 98.8 F 101 H 20 132/78 96 12/05/18 16:23 12/05/18 16:23 12/05/18 16:23 12/05/18 16:23 12/05/18 16:23 Intake and Output: 12/05/18 12/05/18 06:59 18:59 Intake Total 300 Balance 300 - Medications Medications: Current Medications Aspirin (Ecotrin) 81 mg PO DAILY [facility] Atorvastatin Calcium (Lipitor) 40 mg PO DAILY [facility] Last Admin: 12/05/18 08:49 Dose: 40 mg Clopidogrel Bisulfate (Plavix) 75 mg PO DAILY [facility] Darunavir (Prezista) 800 mg PO DAILY [facility]; Protocol Last Admin: 12/05/18 08:50 Dose: 800 mg Emtricitabine/Tenofovir (Truvada 200 Mg-300 Mg) 1 tab PO DAILY [facility]; Protocol Last Admin: 12/05/18 08:51 Dose: 1 tab Enoxaparin Sodium (Lovenox) 40 mg SC DAILY [facility]; Protocol Last Admin: 12/05/18 08:50 Dose: 40 mg Home Med (Famciclovir [Famvir]) 500 mg PO Q12 [facility] Last Admin: 12/05/18 08:48 Dose: 500 mg Meropenem 1 gm/ Sodium (Chloride) 100 mls @ 100 mls/hr IVPB Q8H [facility]; Protocol Last Admin: 12/05/18 10:04 Dose: 100 mls/hr Vancomycin HCl 1,250 mg/ (Sodium Chloride) 250 mls @ 166.667 mls/hr IVPB Q12@1000,2200 [facility]; Protocol Last Admin: 12/05/18 12:47 Dose: 166.667 mls/hr Ibuprofen (Motrin Tab) 600 mg PO Q8 PRN PRN Reason: Fever >100.4 F Insulin Human Lispro (Humalog) 0 units SC ACHS [facility]; Protocol Last Admin: 12/05/18 13:16 Dose: 2 units Levothyroxine Sodium (Synthroid) 50 mcg PO DAILY@0630 [facility] Last Admin: 12/05/18 06:49 Dose: 50 mcg Multivitamins/Minerals (Therapeutic-M Tab) 1 tab PO DAILY [facility] Last Admin: 12/05/18 08:50 Dose: 1 tab Jqpoz-2-Yjcy Ethyl Esters (Lovaza) 1 gm PO Q12 [facility] Last Admin: 12/05/18 08:49 Dose: 1 gm Raltegravir (Isentress) 400 mg PO Q12 [facility]; Protocol Last Admin: 12/05/18 08:49 Dose: 400 mg Ritonavir (Norvir) 100 mg PO DAILY [facility] Last Admin: 12/04/18 09:24 Dose: 100 mg Tamsulosin HCl (Flomax) 0.4 mg PO DAILY [facility] Last Admin: 12/05/18 08:48 Dose: 0.4 mg - Labs Labs: 12/05/18 05:00 12/05/18 05:00 PT 12.4 Seconds (9.8-13.1) 12/03/18 13:25 INR 1.1 12/03/18 13:25 APTT 29.6 Seconds (25.6-37.1) 12/03/18 13:25 Attending/Attestation - Attestation I have personally seen and examined this patient.: Yes I have fully participated in the care of the patient.: Yes I have reviewed all pertinent clinical information, including history, physical exam and plan: Yes Notes (Text): Acute CVA Sepsis due to Pneumonia Asymptomatic HIV Hypothyroidism AMS ? Delirium due to Sepsis HTN HIMA prob due to Dehydration - cont ASA, Plavix and statin -discussed with Dr De Paz- CVA not embolic, likely due to atherosclerosis, no need for GINA - cleared by Neuro for d/c - IV antibiotics - On Meropenem and IV Vanco- , discussed with Dr Garcia , will cont IV antibiotics , may need 5-7 days , she will re-eval and see need for more IV abx vs PO antibiotics -Crea improved with IV abx - cont antiretroviral
--- NOTE | 2018-12-05 11:58 | CP.PCM.PN ---
Subjective - Date & Time of Evaluation Date of Evaluation: 12/05/18 Time of Evaluation: 11:58 - Subjective Subjective: ID note- Patient seen and examined today in tele floor. Patient states he feels better and has walked with PT today . he denies any fever. dry cough. denies any sob. Objective - Vital Signs/Intake and Output Vital Signs (last 24 hours): Temp Pulse Resp BP Pulse Ox 98.0 F 85 20 150/85 94 L 12/05/18 08:40 12/05/18 08:40 12/05/18 08:40 12/05/18 08:40 12/05/18 08:40 - Medications Medications: Current Medications Aspirin (Aspirin) 325 mg PO DAILY [facility] Last Admin: 12/05/18 10:01 Dose: 325 mg Atorvastatin Calcium (Lipitor) 40 mg PO DAILY [facility] Last Admin: 12/05/18 08:49 Dose: 40 mg Darunavir (Prezista) 800 mg PO DAILY [facility]; Protocol Last Admin: 12/05/18 08:50 Dose: 800 mg Emtricitabine/Tenofovir (Truvada 200 Mg-300 Mg) 1 tab PO DAILY [facility]; Protocol Last Admin: 12/05/18 08:51 Dose: 1 tab Enoxaparin Sodium (Lovenox) 40 mg SC DAILY [facility]; Protocol Last Admin: 12/05/18 08:50 Dose: 40 mg Home Med (Famciclovir [Famvir]) 500 mg PO Q12 [facility] Last Admin: 12/05/18 08:48 Dose: 500 mg Meropenem 1 gm/ Sodium (Chloride) 100 mls @ 100 mls/hr IVPB Q8H [facility]; Protocol Last Admin: 12/05/18 10:04 Dose: 100 mls/hr Vancomycin HCl 1,250 mg/ (Sodium Chloride) 250 mls @ 166.667 mls/hr IVPB Q12@1000,2200 [facility]; Protocol Ibuprofen (Motrin Tab) 600 mg PO Q8 PRN PRN Reason: Fever >100.4 F Insulin Human Lispro (Humalog) 0 units SC ACHS [facility]; Protocol Last Admin: 12/05/18 08:47 Dose: 2 units Levothyroxine Sodium (Synthroid) 50 mcg PO DAILY@0630 [facility] Last Admin: 12/05/18 06:49 Dose: 50 mcg Multivitamins/Minerals (Therapeutic-M Tab) 1 tab PO DAILY [facility] Last Admin: 12/05/18 08:50 Dose: 1 tab [id number] Ethyl Esters (Lovaza) 1 gm PO Q12 [facility] Last Admin: 12/05/18 08:49 Dose: 1 gm Raltegravir (Isentress) 400 mg PO Q12 [facility]; Protocol Last Admin: 12/05/18 08:49 Dose: 400 mg Ritonavir (Norvir) 100 mg PO DAILY [facility] Last Admin: 12/04/18 09:24 Dose: 100 mg Tamsulosin HCl (Flomax) 0.4 mg PO DAILY [facility] Last Admin: 12/05/18 08:48 Dose: 0.4 mg - Labs Labs: - Additional Findings Additional findings: - Constitutional Appears: No Acute Distress - Head Exam Head Exam: ATRAUMATIC - Eye Exam Eye Exam: EOMI, PERRL - ENT Exam ENT Exam: Normal Oropharynx - Neck Exam Neck exam: Positive for: Full Rom Additional comments: supple - Respiratory Exam Respiratory Exam: NORMAL BREATHING PATTERN Additional comments: extensive crackles heard on left base about 1/[address] up No wheezing - Cardiovascular Exam Cardiovascular Exam: RRR, +S1, +S2 - GI/Abdominal Exam GI & Abdominal Exam: Normal Bowel Sounds, Soft Additional comments: NT, ND - Extremities Exam Extremities exam: Positive for: normal inspection - Neurological Exam Neurological exam: Alert, Oriented x 3 Additional comments: strength 5/5 B/L UE and LE sensation intact b/l Laboratory Results - last 72 hr 12/03/18 12/03/18 12/03/18 11:46 13:25 13:25 WBC 24.9 H RBC 3.86 L Hgb 12.0 Hct 36.1 MCV 93.5 MCH 31.0 MCHC 33.2 RDW 14.4 Plt Count 279 MPV 7.5 Neut % (Auto) 92.0 H Lymph % (Auto) 2.5 L Weld % (Auto) 5.3 Eos % (Auto) 0.0 Baso % (Auto) 0.2 Neut # (Auto) 22.9 H Lymph # (Auto) 0.6 L Weld # (Auto) 1.3 H Eos # (Auto) 0.0 Baso # (Auto) 0.1 Neutrophils % (Manual) 89 H Band Neutrophils % 6 H Lymphocytes % (Manual) 2 L Monocytes % (Manual) 3 Hypersegmented Polys Toxic Granulation Platelet Estimate Normal RBC Morphology Normal Hypochromasia (manual) PT INR APTT pO2 VBG pH VBG pCO2 VBG HCO3 VBG Total CO2 VBG O2 Sat (Calc) VBG Base Excess VBG Potassium Glucose Lactate FiO2 Sodium 133 Potassium 4.0 Chloride 100 Carbon Dioxide 22 Anion Gap 15 BUN 38 H Creatinine 1.5 Est GFR ( Amer) 56 Est GFR (Non-Af Amer) 46 POC Glucose (mg/dL) 221 H Random Glucose 207 H Lactic Acid Calcium 9.4 Total Bilirubin 0.8 AST 58 ALT 37 Alkaline Phosphatase 102 Total Protein 8.0 Albumin 4.2 Globulin 3.7 Albumin/Globulin Ratio 1.1 Triglycerides Cholesterol LDL Cholesterol Direct HDL Cholesterol TSH 3rd Generation Venous Blood Potassium Urine Color Urine Clarity Urine pH Ur Specific [place] Urine Protein Urine Glucose (UA) Urine Ketones Urine Blood Urine Nitrate Urine Bilirubin Urine Urobilinogen Ur Leukocyte Esterase Urine RBC (Auto) Urine Microscopic WBC Ur Squamous Epith Cells Urine Bacteria Hyaline Casts Influenza Typ A,B (EIA) Ur L.pneumophila Ag 12/03/18 12/03/18 12/03/18 13:25 13:25 13:30 WBC RBC Hgb Hct MCV MCH MCHC RDW Plt Count MPV Neut % (Auto) Lymph % (Auto) Weld % (Auto) Eos % (Auto) Baso % (Auto) Neut # (Auto) Lymph # (Auto) Weld # (Auto) Eos # (Auto) Baso # (Auto) Neutrophils % (Manual) Band Neutrophils % Lymphocytes % (Manual) Monocytes % (Manual) Hypersegmented Polys Toxic Granulation Platelet Estimate RBC Morphology Hypochromasia (manual) PT 12.4 INR 1.1 APTT 29.6 pO2 39 VBG pH 7.42 VBG pCO2 35 L VBG HCO3 23.3 VBG Total CO2 23.8 VBG O2 Sat (Calc) 78.1 H VBG Base Excess -1.3 L VBG Potassium 4.1 Glucose 214 H Lactate 2.3 H FiO2 21.0 Sodium 133.0 Potassium Chloride 99.0 Carbon Dioxide Anion Gap BUN Creatinine Est GFR ( Amer) Est GFR (Non-Af Amer) POC Glucose (mg/dL) Random Glucose Lactic Acid Calcium Total Bilirubin AST ALT Alkaline Phosphatase Total Protein Albumin Globulin Albumin/Globulin Ratio Triglycerides Cholesterol LDL Cholesterol Direct HDL Cholesterol TSH 3rd Generation Venous Blood Potassium 4.1 Urine Color Urine Clarity Urine pH Ur Specific [place] Urine Protein Urine Glucose (UA) Urine Ketones Urine Blood Urine Nitrate Urine Bilirubin Urine Urobilinogen Ur Leukocyte Esterase Urine RBC (Auto) Urine Microscopic WBC Ur Squamous Epith Cells Urine Bacteria Hyaline Casts Influenza Typ A,B (EIA) Negative for flu a/b Ur L.pneumophila Ag 12/03/18 12/03/18 12/03/18 13:36 13:45 17:10 WBC RBC Hgb Hct MCV MCH MCHC RDW Plt Count MPV Neut % (Auto) Lymph % (Auto) Weld % (Auto) Eos % (Auto) Baso % (Auto) Neut # (Auto) Lymph # (Auto) Weld # (Auto) Eos # (Auto) Baso # (Auto) Neutrophils % (Manual) Band Neutrophils % Lymphocytes % (Manual) Monocytes % (Manual) Hypersegmented Polys Toxic Granulation Platelet Estimate RBC Morphology Hypochromasia (manual) PT INR APTT pO2 22 L VBG pH 7.36 VBG pCO2 42 VBG HCO3 21.8 VBG Total CO2 25.0 VBG O2 Sat (Calc) 40.0 VBG Base Excess -1.8 L VBG Potassium 4.0 Glucose 189 H Lactate 2.9 H FiO2 21.0 Sodium 134.0 Potassium Chloride 101.0 Carbon Dioxide Anion Gap BUN Creatinine Est GFR ( Amer) Est GFR (Non-Af Amer) POC Glucose (mg/dL) 226 H Random Glucose Lactic Acid Calcium Total Bilirubin AST ALT Alkaline Phosphatase Total Protein Albumin Globulin Albumin/Globulin Ratio Triglycerides Cholesterol LDL Cholesterol Direct HDL Cholesterol TSH 3rd Generation Venous Blood Potassium 4.0 Urine Color Yellow Urine Clarity Slight-cloudy Urine pH 5.0 Ur Specific [place] 1.023 Urine Protein 30 Urine Glucose (UA) Neg Urine Ketones Negative Urine Blood Moderate Urine Nitrate Negative Urine Bilirubin Negative Urine Urobilinogen 0.2-1.0 Ur Leukocyte Esterase Neg Urine RBC (Auto) 16 H Urine Microscopic WBC 3 Ur Squamous Epith Cells < 1 Urine Bacteria Rare Hyaline Casts 3-5 H Influenza Typ A,B (EIA) Ur L.pneumophila Ag 12/03/18 12/03/18 12/03/18 18:03 19:00 19:42 WBC RBC Hgb Hct MCV MCH MCHC RDW Plt Count MPV Neut % (Auto) Lymph % (Auto) Weld % (Auto) Eos % (Auto) Baso % (Auto) Neut # (Auto) Lymph # (Auto) Weld # (Auto) Eos # (Auto) Baso # (Auto) Neutrophils % (Manual) Band Neutrophils % Lymphocytes % (Manual) Monocytes % (Manual) Hypersegmented Polys Toxic Granulation Platelet Estimate RBC Morphology Hypochromasia (manual) PT INR APTT pO2 VBG pH VBG pCO2 VBG HCO3 VBG Total CO2 VBG O2 Sat (Calc) VBG Base Excess VBG Potassium Glucose Lactate FiO2 Sodium Potassium Chloride Carbon Dioxide Anion Gap BUN Creatinine Est GFR ( Amer) Est GFR (Non-Af Amer) POC Glucose (mg/dL) 204 H Random Glucose Lactic Acid Calcium Total Bilirubin AST ALT Alkaline Phosphatase Total Protein Albumin Globulin Albumin/Globulin Ratio Triglycerides 221 H Cholesterol 185 LDL Cholesterol Direct 95 HDL Cholesterol 27 L TSH 3rd Generation Venous Blood Potassium Urine Color Urine Clarity Urine pH Ur Specific [place] Urine Protein Urine Glucose (UA) Urine Ketones Urine Blood Urine Nitrate Urine Bilirubin Urine Urobilinogen Ur Leukocyte Esterase Urine RBC (Auto) Urine Microscopic WBC Ur Squamous Epith Cells Urine Bacteria Hyaline Casts Influenza Typ A,B (EIA) Ur L.pneumophila Ag Negative 12/03/18 12/04/18 12/04/18 23:35 04:18 04:18 WBC 20.5 H RBC 3.62 L Hgb 11.4 L Hct 33.9 L MCV 93.6 MCH 31.5 H MCHC 33.7 RDW 14.5 Plt Count 243 MPV 7.6 Neut % (Auto) 90.6 H Lymph % (Auto) 5.5 L Weld % (Auto) 3.5 Eos % (Auto) 0.1 Baso % (Auto) 0.3 Neut # (Auto) 18.5 H Lymph # (Auto) 1.1 Weld # (Auto) 0.7 Eos # (Auto) 0.0 Baso # (Auto) 0.1 Neutrophils % (Manual) 81 H Band Neutrophils % 12 H* Lymphocytes % (Manual) 5 L Monocytes % (Manual) 2 Hypersegmented Polys Present Toxic Granulation Present Platelet Estimate Normal RBC Morphology Hypochromasia (manual) Slight PT INR APTT pO2 VBG pH VBG pCO2 VBG HCO3 VBG Total CO2 VBG O2 Sat (Calc) VBG Base Excess VBG Potassium Glucose Lactate FiO2 Sodium 134 Potassium 3.7 Chloride 103 Carbon Dioxide 22 Anion Gap 13 BUN 29 H Creatinine 1.0 Est GFR ( Amer) > 60 Est GFR (Non-Af Amer) > 60 POC Glucose (mg/dL) 215 H Random Glucose 132 H Lactic Acid Calcium 9.1 Total Bilirubin 0.7 AST 123 H D ALT 47 Alkaline Phosphatase 96 Total Protein 7.3 Albumin 3.7 Globulin 3.6 Albumin/Globulin Ratio 1.0 Triglycerides Cholesterol LDL Cholesterol Direct HDL Cholesterol TSH 3rd Generation Venous Blood Potassium Urine Color Urine Clarity Urine pH Ur Specific [place] Urine Protein Urine Glucose (UA) Urine Ketones Urine Blood Urine Nitrate Urine Bilirubin Urine Urobilinogen Ur Leukocyte Esterase Urine RBC (Auto) Urine Microscopic WBC Ur Squamous Epith Cells Urine Bacteria Hyaline Casts Influenza Typ A,B (EIA) Ur L.pneumophila Ag 12/04/18 12/04/18 12/04/18 04:18 06:11 08:49 WBC RBC Hgb Hct MCV MCH MCHC RDW Plt Count MPV Neut % (Auto) Lymph % (Auto) Weld % (Auto) Eos % (Auto) Baso % (Auto) Neut # (Auto) Lymph # (Auto) Weld # (Auto) Eos # (Auto) Baso # (Auto) Neutrophils % (Manual) Band Neutrophils % Lymphocytes % (Manual) Monocytes % (Manual) Hypersegmented Polys Toxic Granulation Platelet Estimate RBC Morphology Hypochromasia (manual) PT INR APTT pO2 VBG pH VBG pCO2 VBG HCO3 VBG Total CO2 VBG O2 Sat (Calc) VBG Base Excess VBG Potassium Glucose Lactate FiO2 Sodium Potassium Chloride Carbon Dioxide Anion Gap BUN Creatinine Est GFR ( Amer) Est GFR (Non-Af Amer) POC Glucose (mg/dL) 155 H Random Glucose Lactic Acid 1.0 Calcium Total Bilirubin AST ALT Alkaline Phosphatase Total Protein Albumin Globulin Albumin/Globulin Ratio Triglycerides Cholesterol LDL Cholesterol Direct HDL Cholesterol TSH 3rd Generation 1.07 Venous Blood Potassium Urine Color Urine Clarity Urine pH Ur Specific [place] Urine Protein Urine Glucose (UA) Urine Ketones Urine Blood Urine Nitrate Urine Bilirubin Urine Urobilinogen Ur Leukocyte Esterase Urine RBC (Auto) Urine Microscopic WBC Ur Squamous Epith Cells Urine Bacteria Hyaline Casts Influenza Typ A,B (EIA) Ur L.pneumophila Ag 12/04/18 12/04/18 12/04/18 11:22 17:03 21:06 WBC RBC Hgb Hct MCV MCH MCHC RDW Plt Count MPV Neut % (Auto) Lymph % (Auto) Weld % (Auto) Eos % (Auto) Baso % (Auto) Neut # (Auto) Lymph # (Auto) Weld # (Auto) Eos # (Auto) Baso # (Auto) Neutrophils % (Manual) Band Neutrophils % Lymphocytes % (Manual) Monocytes % (Manual) Hypersegmented Polys Toxic Granulation Platelet Estimate RBC Morphology Hypochromasia (manual) PT INR APTT pO2 VBG pH VBG pCO2 VBG HCO3 VBG Total CO2 VBG O2 Sat (Calc) VBG Base Excess VBG Potassium Glucose Lactate FiO2 Sodium Potassium Chloride Carbon Dioxide Anion Gap BUN Creatinine Est GFR ( Amer) Est GFR (Non-Af Amer) POC Glucose (mg/dL) 200 H 151 H 186 H Random Glucose Lactic Acid Calcium Total Bilirubin AST ALT Alkaline Phosphatase Total Protein Albumin Globulin Albumin/Globulin Ratio Triglycerides Cholesterol LDL Cholesterol Direct HDL Cholesterol TSH 3rd Generation Venous Blood Potassium Urine Color Urine Clarity Urine pH Ur Specific [place] Urine Protein Urine Glucose (UA) Urine Ketones Urine Blood Urine Nitrate Urine Bilirubin Urine Urobilinogen Ur Leukocyte Esterase Urine RBC (Auto) Urine Microscopic WBC Ur Squamous Epith Cells Urine Bacteria Hyaline Casts Influenza Typ A,B (EIA) Ur L.pneumophila Ag 12/05/18 12/05/18 12/05/18 05:00 05:00 05:37 WBC 12.0 H RBC 3.48 L Hgb 10.7 L Hct 32.5 L MCV 93.4 MCH 30.8 MCHC 33.0 RDW 14.5 Plt Count 242 MPV 7.4 Neut % (Auto) 84.8 H Lymph % (Auto) 9.9 L Weld % (Auto) 4.3 Eos % (Auto) 0.7 Baso % (Auto) 0.3 Neut # (Auto) 10.2 H Lymph # (Auto) 1.2 Weld # (Auto) 0.5 Eos # (Auto) 0.1 Baso # (Auto) 0.0 Neutrophils % (Manual) Band Neutrophils % Lymphocytes % (Manual) Monocytes % (Manual) Hypersegmented Polys Toxic Granulation Platelet Estimate RBC Morphology Hypochromasia (manual) PT INR APTT pO2 VBG pH VBG pCO2 VBG HCO3 VBG Total CO2 VBG O2 Sat (Calc) VBG Base Excess VBG Potassium Glucose Lactate FiO2 Sodium 138 Potassium 4.0 Chloride 107 Carbon Dioxide 24 Anion Gap 11 BUN 20 Creatinine 1.0 Est GFR ( Amer) > 60 Est GFR (Non-Af Amer) > 60 POC Glucose (mg/dL) 162 H Random Glucose 155 H Lactic Acid Calcium 8.9 Total Bilirubin AST ALT Alkaline Phosphatase Total Protein Albumin Globulin Albumin/Globulin Ratio Triglycerides Cholesterol LDL Cholesterol Direct HDL Cholesterol TSH 3rd Generation Venous Blood Potassium Urine Color Urine Clarity Urine pH Ur Specific [place] Urine Protein Urine Glucose (UA) Urine Ketones Urine Blood Urine Nitrate Urine Bilirubin Urine Urobilinogen Ur Leukocyte Esterase Urine RBC (Auto) Urine Microscopic WBC Ur Squamous Epith Cells Urine Bacteria Hyaline Casts Influenza Typ A,B (EIA) Ur L.pneumophila Ag 12/05/18 11:29 WBC RBC Hgb Hct MCV MCH MCHC RDW Plt Count MPV Neut % (Auto) Lymph % (Auto) Weld % (Auto) Eos % (Auto) Baso % (Auto) Neut # (Auto) Lymph # (Auto) Weld # (Auto) Eos # (Auto) Baso # (Auto) Neutrophils % (Manual) Band Neutrophils % Lymphocytes % (Manual) Monocytes % (Manual) Hypersegmented Polys Toxic Granulation Platelet Estimate RBC Morphology Hypochromasia (manual) PT INR APTT pO2 VBG pH VBG pCO2 VBG HCO3 VBG Total CO2 VBG O2 Sat (Calc) VBG Base Excess VBG Potassium Glucose Lactate FiO2 Sodium Potassium Chloride Carbon Dioxide Anion Gap BUN Creatinine Est GFR ( Amer) Est GFR (Non-Af Amer) POC Glucose (mg/dL) 172 H Random Glucose Lactic Acid Calcium Total Bilirubin AST ALT Alkaline Phosphatase Total Protein Albumin Globulin Albumin/Globulin Ratio Triglycerides Cholesterol LDL Cholesterol Direct HDL Cholesterol TSH 3rd Generation Venous Blood Potassium Urine Color Urine Clarity Urine pH Ur Specific [place] Urine Protein Urine Glucose (UA) Urine Ketones Urine Blood Urine Nitrate Urine Bilirubin Urine Urobilinogen Ur Leukocyte Esterase Urine RBC (Auto) Urine Microscopic WBC Ur Squamous Epith Cells Urine Bacteria Hyaline Casts Influenza Typ A,B (EIA) Ur L.pneumophila Ag Microbiology 12/03/18 14:01 Blood-Venous Blood Culture - Preliminary NO GROWTH AFTER 48 HOURS 12/03/18 14:01 Blood-Venous Blood Culture - Preliminary NO GROWTH AFTER 48 HOURS 12/03/18 13:45 Urine,Clean Catch Urine Culture - Final No Growth (<1,000 CFU/ML) Assessment and Plan (1) Cerebrovascular accident, embolic Status: Acute (2) HIV (human immunodeficiency virus infection) Status: Acute (3) Leukocytosis Status: Acute (4) Fever Status: Acute (5) Chronic hip pain, bilateral Status: Acute (6) Hypothyroidism Status: Acute - Assessment and Plan (Free Text) Assessment: A/P- 73 year old male with HIV ( well controlled), DM II, HTN, Hypothyroidism, b/l chronic hip pain from arthritis and spinal stenosis admitted with change in MS , weakness and hip pain. clinically much improved. afebrile past 24 hours leukocytosis trending down Chest CT- extensive left lower lung Pneumonia. MRI of the brain - as per report small foci of acute Left PICA territory infarction UA- neg blood cx-neg x 2 urine cx- neg TTE- no mention of any vegetations as per report no need for TEEas per core measures abstractor as per neuro mini stroke was secondary to atherosclerosis and advise plavix and aspirin PLan- await sputum cx. advise to continue with IV meropnem day #2 advise to continue with IV vanco for empiric staph coverage. day #2 keep trough <15. advise at least 5-7 days of IV antibiotics for this pneumonia. all above d/w patient at length and he verbalizes full understanding of all above and agrees with above plan of care.
--- NOTE | 2018-12-05 12:02 | PCM.STROKE ---
Interval History Unable to obtain (state reason): documented that pt was confused, unclear date of symptom onset - Treatment DVT Prophylaxis: Lovenox Antiplatelet: Acetylsalicylic acid (ASA) Statin: Atrovastatin - Education Written Stroke Education provided regarding: personal risk factors, stroke warning sign/symptoms, how to activate emergency medical services, need to follow up after discharge Hx Atrial Fibrillation: No Hx Atrial Flutter: No - Therapy Notes Physical therapy notes date reviewed: 12/05/18 Occupational therapy notes date reviewed: 12/05/18 I have reviewed care of the patient with: Dr. Fontenot NIHSS Stroke Scale - Date/Time Evaluation Performed Date Performed: 12/05/18 Time Performed: 11:59 When Was NIHSS Performed: Re-evaluation - How Severe is the Stroke Level of Consciousness: 0=Alert LOC to Questions: 0=Both comments correct LOC to commands: 0=Obeys both correctly Best Gaze: 0=Normal Visual: 0=No visual loss Facial: 0=Normal Motor Arm - Left: 0=No drift Motor Arm - Right: 0=No drift Motor Leg - Left: 0=No drift Motor Leg - Right: 0=No drift Limb Ataxia: 0=Absent Sensory: 0=Normal Best Language: 0=No aphasia Dysarthia: 0=Normal articulation Extinction & Inattention (Neglect): 0=Normal, no object Score: 0 Exam - Vital Sign Vital Signs: Temp Pulse Resp BP Pulse Ox 98.0 F 85 20 150/85 94 L 12/05/18 08:40 12/05/18 08:40 12/05/18 08:40 12/05/18 08:40 12/05/18 08:40 Constitutional: No distress, Normal appearing Ophthalmoscopic: absent: papilledema, hemorrhage Right Pupil: Reactive Right Pupil Size (in mm): 3 Left Pupil: Reactive Left Pupil Size (in mm): 3 Cardiovascular: Regular rate & rhythm Mental Status: Normal: Orientation, Memory, Attention, Language, Fund of Knowledge Cranial Nerve: Normal: Visual Garcia, Extraocular movement intact, Facial Sensation, Facial Strength, Hearing, Palate/Tongue Movement, Shoulder Strength Motor: Tone, Bulk Neuro motor strength exam: Left Upper Extremity: 5 (distal 5/5), Right Upper Extremity: 5 (distal 5/5), Left Lower Extremity: 5 (distal 5/5), Right Lower Extremity: 5 (distal 5/5) Sensation: Intact to pin, Vibration, Propriception throughout DTR: Patellar Left: 1+, Patellar Right: 1+ Flexor Plantar Reflex: Normal Coordination: Finger/nose Gait: Normal with Absent Rhomberg Vascular Risk: Hypertension, Lipids - Data reviewed Laboratory results: 12/05/18 05:00 12/05/18 05:00 Triglycerides 221 mg/DL (0-149) H 12/03/18 19:00 Cholesterol 185 mg/dL (0-199) 12/03/18 19:00 LDL Cholesterol Direct 95 mg/dL (0-129) 12/03/18 19:00 HDL Cholesterol 27 MG/DL (30-70) L 12/03/18 19:00 Assessment and Plan (1) Cerebrovascular accident, embolic Assessment & Plan: Imaging reviewed: -MRI Brain (12/03/18): 1. Few small foci of acute left PICA territory infarctions in the left posterior inferior cerebellar hemisphere. The pattern of distribution suggests embolic etiology. 2. Mild chronic microangiopathic changes and mild age-related global parenchymal volume loss. -CTA Head and Neck (12/03/18): 1. No large vessel occlusion of of intracranial arterial circulation. No definite aneurysm or arteriovascular malformation. 2. No significant occlusion or significant stenosis in bilateral common and internal carotid as well as vertebral arteries in the neck. 3. 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 4. Degenerative grade 1 spondylolisthesis C4-5 as per above. -ECHO (12/03/18): no ASD; EF 55/60%; no LV thrombus -Continue ASA 81 mg PO Daily, Plavix 75 mg PO Daily, and statin upon d/c. -Continue PT/OT/ST -Add HgbA1c to labs. -Cardio on case, Dr. De Paz: no GINA indicated at this time; continue ASA, Statin, beta james, and lubna inhibitor. -Observe for another 24 hours and if remains stable, ok to d/c from neuro [facility]. -Notify neuro of any acute changes in pt's condition prior to d/c. Thank you for this consultation. Fifi Jimenez, DNP, INTER[employer] SAL[employer] MANAGER d/w Dr. Fontenot Status: Acute
--- NOTE | 2018-12-05 12:12 | CP.PCM.PN ---
Objective - Vital Signs/Intake and Output Vital Signs (last 24 hours): Temp Pulse Resp BP Pulse Ox 98.0 F 85 20 150/85 94 L 12/05/18 08:40 12/05/18 08:40 12/05/18 08:40 12/05/18 08:40 12/05/18 08:40 - Medications Medications: Current Medications Aspirin (Aspirin) 325 mg PO DAILY [facility] Last Admin: 12/05/18 10:01 Dose: 325 mg Atorvastatin Calcium (Lipitor) 40 mg PO DAILY [facility] Last Admin: 12/05/18 08:49 Dose: 40 mg Darunavir (Prezista) 800 mg PO DAILY [facility]; Protocol Last Admin: 12/05/18 08:50 Dose: 800 mg Emtricitabine/Tenofovir (Truvada 200 Mg-300 Mg) 1 tab PO DAILY [facility]; Protocol Last Admin: 12/05/18 08:51 Dose: 1 tab Enoxaparin Sodium (Lovenox) 40 mg SC DAILY [facility]; Protocol Last Admin: 12/05/18 08:50 Dose: 40 mg Home Med (Famciclovir [Famvir]) 500 mg PO Q12 [facility] Last Admin: 12/05/18 08:48 Dose: 500 mg Meropenem 1 gm/ Sodium (Chloride) 100 mls @ 100 mls/hr IVPB Q8H [facility]; Protocol Last Admin: 12/05/18 10:04 Dose: 100 mls/hr Vancomycin HCl 1,250 mg/ (Sodium Chloride) 250 mls @ 166.667 mls/hr IVPB Q12@1000,2200 [facility]; Protocol Ibuprofen (Motrin Tab) 600 mg PO Q8 PRN PRN Reason: Fever >100.4 F Insulin Human Lispro (Humalog) 0 units SC ACHS [facility]; Protocol Last Admin: 12/05/18 08:47 Dose: 2 units Levothyroxine Sodium (Synthroid) 50 mcg PO DAILY@0630 [facility] Last Admin: 12/05/18 06:49 Dose: 50 mcg Multivitamins/Minerals (Therapeutic-M Tab) 1 tab PO DAILY [facility] Last Admin: 12/05/18 08:50 Dose: 1 tab [id number] Ethyl Esters (Lovaza) 1 gm PO Q12 [facility] Last Admin: 12/05/18 08:49 Dose: 1 gm Raltegravir (Isentress) 400 mg PO Q12 [facility]; Protocol Last Admin: 12/05/18 08:49 Dose: 400 mg Ritonavir (Norvir) 100 mg PO DAILY [facility] Last Admin: 12/04/18 09:24 Dose: 100 mg Tamsulosin HCl (Flomax) 0.4 mg PO DAILY [facility] Last Admin: 12/05/18 08:48 Dose: 0.4 mg - Labs Labs: 12/05/18 05:00 12/05/18 05:00 PT 12.4 Seconds (9.8-13.1) 12/03/18 13:25 INR 1.1 12/03/18 13:25 APTT 29.6 Seconds (25.6-37.1) 12/03/18 13:25
--- NOTE | 2018-12-05 16:09 | CP.PCM.CON ---
History of Present Illness - History of Present Illness History of Present Illness: Neurology consult dictated. Mr. Thomas is a 73 yr old male who has a new small, left core shaper top stroke, and pmh of HIV, followed by Dr. De Paz. His NIHSS is 0, and he wasnt a TPA candidate due to time of onset not known. He is undergoing, stroke, workup, whichis thus far normal. Plan: 1. start asa and plavix. our team will follow THank you Neurology Dr. Fontenot Past Patient History - Infectious Disease Hx of Infectious Diseases: None - Past Social History Smoking Status: Former Smoker - CARDIAC Hx Atrial Fibrillation: No - PULMONARY Hx Respiratory Disorders: No - NEUROLOGICAL Hx Neurological Disorder: No - HEENT Hx HEENT Problems: No - RENAL Hx Chronic Kidney Disease: No - ENDOCRINE/METABOLIC Hx Diabetes Mellitus Type 2: Yes Hx Hypothyroidism: Yes - HEMATOLOGICAL/ONCOLOGICAL Hx Human Immunodeficiency Virus (HIV): Yes - INTEGUMENTARY Hx Dermatological Problems: No - MUSCULOSKELETAL/RHEUMATOLOGICAL Hx Musculoskeletal Disorders: Yes Hx Falls: No Hx Spinal Stenosis: Yes - GENITOURINARY/GYNECOLOGICAL Hx Genitourinary Disorders: No - PSYCHIATRIC Hx Psychophysiologic Disorder: No Hx Substance Use: No - SURGICAL HISTORY Hx Surgeries: Yes Other/Comment: hernia removal 10/2018 - ANESTHESIA Hx Anesthesia: Yes Hx Anesthesia Reactions: No Hx Malignant Hyperthermia: No Has any member of the family had a problem w/ anesthesia?: No Meds Allergies/Adverse Reactions: Allergies Allergy/AdvReac Type Severity Reaction Status Date / Time No Known Allergies Allergy Verified 10/10/18 08:05 - Medications Medications: Current Medications Aspirin (Ecotrin) 81 mg PO DAILY [facility] Atorvastatin Calcium (Lipitor) 40 mg PO DAILY [facility] Last Admin: 12/05/18 08:49 Dose: 40 mg Clopidogrel Bisulfate (Plavix) 75 mg PO DAILY [facility] Darunavir (Prezista) 800 mg PO DAILY [facility]; Protocol Last Admin: 12/05/18 08:50 Dose: 800 mg Emtricitabine/Tenofovir (Truvada 200 Mg-300 Mg) 1 tab PO DAILY [facility]; Protocol Last Admin: 12/05/18 08:51 Dose: 1 tab Enoxaparin Sodium (Lovenox) 40 mg SC DAILY [facility]; Protocol Last Admin: 12/05/18 08:50 Dose: 40 mg Home Med (Famciclovir [Famvir]) 500 mg PO Q12 [facility] Last Admin: 12/05/18 08:48 Dose: 500 mg Meropenem 1 gm/ Sodium (Chloride) 100 mls @ 100 mls/hr IVPB Q8H [facility]; Protocol Last Admin: 12/05/18 10:04 Dose: 100 mls/hr Vancomycin HCl 1,250 mg/ (Sodium Chloride) 250 mls @ 166.667 mls/hr IVPB Q12@1000,2200 [facility]; Protocol Last Admin: 12/05/18 12:47 Dose: 166.667 mls/hr Ibuprofen (Motrin Tab) 600 mg PO Q8 PRN PRN Reason: Fever >100.4 F Insulin Human Lispro (Humalog) 0 units SC ACHS [facility]; Protocol Last Admin: 12/05/18 13:16 Dose: 2 units Levothyroxine Sodium (Synthroid) 50 mcg PO DAILY@0630 [facility] Last Admin: 12/05/18 06:49 Dose: 50 mcg Multivitamins/Minerals (Therapeutic-M Tab) 1 tab PO DAILY [facility] Last Admin: 12/05/18 08:50 Dose: 1 tab Bomho-1-Fugd Ethyl Esters (Lovaza) 1 gm PO Q12 [facility] Last Admin: 12/05/18 08:49 Dose: 1 gm Raltegravir (Isentress) 400 mg PO Q12 [facility]; Protocol Last Admin: 12/05/18 08:49 Dose: 400 mg Ritonavir (Norvir) 100 mg PO DAILY [facility] Last Admin: 12/04/18 09:24 Dose: 100 mg Tamsulosin HCl (Flomax) 0.4 mg PO DAILY [facility] Last Admin: 12/05/18 08:48 Dose: 0.4 mg Results - Vital Signs Recent Vital Signs: Last Vital Signs Temp 97.9 F 12/05/18 12:44 Pulse 83 12/05/18 14:00 Resp 20 12/05/18 12:44 BP 136/77 12/05/18 12:44 Pulse Ox 95 12/05/18 14:00 - Labs Result Diagrams: 12/05/18 05:00 12/05/18 05:00 Labs: Laboratory Results - last 24 hr 12/03/18 12/04/18 12/04/18 18:03 11:22 17:03 WBC RBC Hgb Hct MCV MCH MCHC RDW Plt Count MPV Neut % (Auto) Lymph % (Auto) [place] % (Auto) Eos % (Auto) Baso % (Auto) Neut # (Auto) Lymph # (Auto) [place] # (Auto) Eos # (Auto) Baso # (Auto) Sodium Potassium Chloride Carbon Dioxide Anion Gap BUN Creatinine Est GFR ( Amer) Est GFR (Non-Af Amer) POC Glucose (mg/dL) 200 H 151 H Random Glucose Calcium Ur L.pneumophila Ag Negative 12/04/18 12/05/18 12/05/18 21:06 05:00 05:00 WBC 12.0 H RBC 3.48 L Hgb 10.7 L Hct 32.5 L MCV 93.4 MCH 30.8 MCHC 33.0 RDW 14.5 Plt Count 242 MPV 7.4 Neut % (Auto) 84.8 H Lymph % (Auto) 9.9 L [place] % (Auto) 4.3 Eos % (Auto) 0.7 Baso % (Auto) 0.3 Neut # (Auto) 10.2 H Lymph # (Auto) 1.2 [place] # (Auto) 0.5 Eos # (Auto) 0.1 Baso # (Auto) 0.0 Sodium 138 Potassium 4.0 Chloride 107 Carbon Dioxide 24 Anion Gap 11 BUN 20 Creatinine 1.0 Est GFR ( Amer) > 60 Est GFR (Non-Af Amer) > 60 POC Glucose (mg/dL) 186 H Random Glucose 155 H Calcium 8.9 Ur L.pneumophila Ag 12/05/18 12/05/18 05:37 11:29 WBC RBC Hgb Hct MCV MCH MCHC RDW Plt Count MPV Neut % (Auto) Lymph % (Auto) [place] % (Auto) Eos % (Auto) Baso % (Auto) Neut # (Auto) Lymph # (Auto) [place] # (Auto) Eos # (Auto) Baso # (Auto) Sodium Potassium Chloride Carbon Dioxide Anion Gap BUN Creatinine Est GFR ( Amer) Est GFR (Non-Af Amer) POC Glucose (mg/dL) 162 H 172 H Random Glucose Calcium Ur L.pneumophila Ag
[2018-12-06] MEDS: Meropenem 1 GM in Sodium Chloride 0.9% 100 ML IVPB SCH ×3 (01:09→17:16)
[2018-12-06] MEDS: Levothyroxine 50 MCG TAB PO SCH (05:39)
[2018-12-06 07:33] LABS: BASO # 0.1 K/uL (0.0-0.2); BASO % 0.6 % (0.0-2.0); EOS # 0.1 K/uL (0.0-0.7); EOS % 1.6 % (0.0-4.0); HEMOGLOBIN 11.5 g/dL (12.0-18.0); LYMPH # 1.1 K/uL (1.0-4.3); LYMPH % 13.2 % (20.0-40.0); MEAN CELL VOLUME 93.2 fl (80.0-94.0); MEAN CORPUSCULAR HEMOGLOBIN 31.7 pg (27.0-31.0); MEAN PLATELET VOLUME 7.7 fl (7.2-11.7); MONO # 0.6 K/uL (0.0-0.8); MONO % 7.1 % (0.0-10.0); NEUT # 6.4 K/uL (1.8-7.0); NEUT % 77.5 % (50.0-75.0); NRBC % 0.1 % (0.0-0.0); RBC 3.64 Mil/uL (4.40-5.90); RED CELL DISTRIBUTION WIDTH 14.2 % (11.5-14.5); WHITE BLOOD COUNT 8.3 K/uL (4.8-10.8)
[2018-12-06] MEDS: FAMCICLOVIR 500 MG PO SCH ×2 (10:03→20:40)
[2018-12-06] MEDS: Emtricitabine-Tenofovir 200 mg-300 mg Tab PO SCH (10:04)
[2018-12-06] MEDS: Insulin Lispro (humaLOG) 100 Units/ml Inj SC SCH ×4 (10:04→21:32)
[2018-12-06] MEDS: Omega-3-Acid Ethyl Esters 1 GM Cap PO SCH ×2 (10:04→20:41)
[2018-12-06] MEDS: Multivitamin With Minerals Tab PO SCH (10:05)
[2018-12-06] MEDS: Enoxaparin 40 mg Syringe SC SCH (10:06)
--- NOTE | 2018-12-06 10:21 | PQF ---
PROVIDER RESPONSE TEXT: Provider was unable to determine a response for this query. REVIEWER QUERY TEXT: HIV Clarification and Associated Conditions Documentation of HIV well controlled last CD4: 320 and VL <20 UD. + Cough, fatigue, leg weakness, confusion. Noted to have an Acute CVA , Sepsis and LLL Pneumonia. HIV (Human immunodeficiency virus) is documented in the medical record. Please specify the type Such as: -- Acquired immune deficiency syndrome [AIDS] -- HIV + only -- With current or previous HIV-related condition (please specify related condition) -- Exposure to HIV -- Inconclusive serologic evidence of HIV -- Other, please specify Also please include any associated conditions, if applicable. The patient's Clinical Indicators include: HX HIV Rx: Preszista, Truvada, Famvir, Isentress, CT Chest Extensive left lower lobe infiltrate/pneumonia rx: Merrem, Vancomycin Query created by: Eloisa Denise on 12/05/2018 12:57 PM Electronically signed by: Kym Harris 12/06/2018 10:19 AM HIV Clarification and Associated Conditions (HIV + only) HIV well controlled last CD4: 320 and VL <20 UD. MTDD
--- NOTE | 2018-12-06 10:30 | CP.PCM.PN ---
Subjective - Date & Time of Evaluation Date of Evaluation: 12/06/18 Time of Evaluation: 10:30 - Subjective Subjective: Pt seen bedside sitting upright eating breakfast. No new complaints, concerned with BP reading from this morning. Discussed assessment and plan, pt agreed and verbally confirmed understanding. Objective - Vital Signs/Intake and Output Vital Signs (last 24 hours): Temp Pulse Resp BP Pulse Ox 97.8 F 78 20 165/91 H 95 12/06/18 08:15 12/06/18 08:15 12/06/18 08:15 12/06/18 08:15 12/06/18 08:15 - Medications Medications: Current Medications Aspirin (Ecotrin) 81 mg PO DAILY [facility] Last Admin: 12/06/18 10:05 Dose: 81 mg Atorvastatin Calcium (Lipitor) 40 mg PO DAILY [facility] Last Admin: 12/06/18 10:06 Dose: 40 mg Clopidogrel Bisulfate (Plavix) 75 mg PO DAILY [facility] Last Admin: 12/06/18 10:05 Dose: 75 mg Darunavir (Prezista) 800 mg PO DAILY [facility]; Protocol Last Admin: 12/06/18 10:05 Dose: 800 mg Emtricitabine/Tenofovir (Truvada 200 Mg-300 Mg) 1 tab PO DAILY [facility]; Protocol Last Admin: 12/06/18 10:04 Dose: 1 tab Enoxaparin Sodium (Lovenox) 40 mg SC DAILY [facility]; Protocol Last Admin: 12/06/18 10:06 Dose: 40 mg Home Med (Famciclovir [Famvir]) 500 mg PO Q12 [facility] Last Admin: 12/06/18 10:03 Dose: 500 mg Meropenem 1 gm/ Sodium (Chloride) 100 mls @ 100 mls/hr IVPB Q8H [facility]; Protocol Last Admin: 12/06/18 10:06 Dose: 100 mls/hr Vancomycin HCl 1,250 mg/ (Sodium Chloride) 250 mls @ 166.667 mls/hr IVPB Q12@1000,2200 [facility]; Protocol Last Admin: 12/06/18 10:19 Dose: 166.667 mls/hr Ibuprofen (Motrin Tab) 600 mg PO Q8 PRN PRN Reason: Fever >100.4 F Insulin Human Lispro (Humalog) 0 units SC ACHS [facility]; Protocol Last Admin: 12/06/18 10:04 Dose: Not Given Levothyroxine Sodium (Synthroid) 50 mcg PO DAILY@0630 [facility] Last Admin: 12/06/18 05:39 Dose: 50 mcg Metoprolol Succinate (Toprol Xl) 25 mg PO DAILY [facility] Multivitamins/Minerals (Therapeutic-M Tab) 1 tab PO DAILY [facility] Last Admin: 12/06/18 10:05 Dose: 1 tab Paiov-8-Omak Ethyl Esters (Lovaza) 1 gm PO Q12 [facility] Last Admin: 12/06/18 10:04 Dose: 1 gm Raltegravir (Isentress) 400 mg PO Q12 [facility]; Protocol Last Admin: 12/06/18 10:05 Dose: 400 mg Ritonavir (Norvir) 100 mg PO DAILY [facility] Last Admin: 12/04/18 09:24 Dose: 100 mg Tamsulosin HCl (Flomax) 0.4 mg PO DAILY [facility] Last Admin: 12/06/18 10:05 Dose: 0.4 mg - Labs Labs: 12/06/18 05:50 12/05/18 05:00 PT 12.4 Seconds (9.8-13.1) 12/03/18 13:25 INR 1.1 12/03/18 13:25 APTT 29.6 Seconds (25.6-37.1) 12/03/18 13:25 - Constitutional Appears: Non-toxic, No Acute Distress - Head Exam Head Exam: NORMAL INSPECTION - ENT Exam ENT Exam: Mucous Membranes Moist - Respiratory Exam Respiratory Exam: Rales (LLL), NORMAL BREATHING PATTERN - Cardiovascular Exam Cardiovascular Exam: REGULAR RHYTHM - GI/Abdominal Exam GI & Abdominal Exam: Soft. absent: Tenderness - Extremities Exam Extremities Exam: absent: Pedal Edema - Neurological Exam Neurological Exam: Alert, Awake, Oriented x3 - Psychiatric Exam Psychiatric exam: Normal Affect, Normal Mood - Skin Skin Exam: Normal Color Assessment and Plan - Assessment and Plan (Free Text) Assessment: 73 M old male with PMH of HIV/undetected VL, DM-II, HTN, hypothyroidism, BPH, history of lumbar spinal stenosis, and history of bilateral hip arthritis admitted to [facility] for evaluation and treatment of embolic stroke, fever and b/l hip pain. Acute CVA/Embolic etiology - MRI head: few small foci of acute Left PICA teritory infarction in the left posterior crebellar hemisphere - Dr. Fontenot, recommendations- c.w aspirin & statin - Dr. De Paz recommendations- no indication for GINA as this time - Echocardiogram neg for any valvular pathology - C/w PT/OT - CTA head and Neck: no large vessel occlusion of intracranial arterial circulation IMPRESSION: 1. No large vessel occlusion of of intracranial arterial circulation. No definite aneurysm or arteriovascular malformation. 2. No significant occlusion or significant stenosis in bilateral common and internal carotid as well as vertebral arteries in the neck. 3. 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 4. Degenerative grade 1 spondylolisthesis C4-5 as per above. Plan: Sepsis secondary to LLL pneumonia -Fever, tachycardia, Leukocytosis -Chest CT: confirmed CXR findings with report stating extensive left lower lobe infiltrate -Dr. Garcia, recommendations appreciated -C/w vanco (Day #3) & meropenem (Day #2) for broader coverage as per Dr. Garcia -Keep trough below <15 -Echo negative for any valvular pathology -Mycoplasma/leginella- negative; Blood cultures &Urine Cx- negative; FU Sputum cx CAP (LLL) -Blood & urine cx neg -C/w vanco DAY 3 & meropenem DAY 2 B/l Hip pain with improved weakness and history of bilateral hip arthritis - MRI L-spine: congenitally narrow spinal canal - Pain management - PT/OT Human Immunodeficiency Virus with undetected Viral load - Chronic, controlled - Dr. Garcia recommendations appreciated - C/w raltegravir, truvada, prezista, Famciclovir HTN, Chronic, controlled -Begin Metoprolol 25mg daily and Lisinopril 2.5 mg daily NIDDM-II - cont to hold Metformin - Sliding scale/Hypoglycemic protocol - Luis [facility]
--- NOTE | 2018-12-06 11:46 | CP.PCM.PN ---
Subjective - Date & Time of Evaluation Date of Evaluation: 12/06/18 Time of Evaluation: 11:46 - Subjective Subjective: Id Note- Patient seen and examined today. He feels much better. denies any fever or chills. is able to expectorate today. denies any sob. Objective - Vital Signs/Intake and Output Vital Signs (last 24 hours): Temp Pulse Resp BP Pulse Ox 97.8 F 78 20 165/91 H 95 12/06/18 08:15 12/06/18 08:15 12/06/18 08:15 12/06/18 08:15 12/06/18 08:15 - Medications Medications: Current Medications Aspirin (Ecotrin) 81 mg PO DAILY [facility] Last Admin: 12/06/18 10:05 Dose: 81 mg Atorvastatin Calcium (Lipitor) 40 mg PO DAILY [facility] Last Admin: 12/06/18 10:06 Dose: 40 mg Clopidogrel Bisulfate (Plavix) 75 mg PO DAILY [facility] Last Admin: 12/06/18 10:05 Dose: 75 mg Darunavir (Prezista) 800 mg PO DAILY [facility]; Protocol Last Admin: 12/06/18 10:05 Dose: 800 mg Emtricitabine/Tenofovir (Truvada 200 Mg-300 Mg) 1 tab PO DAILY [facility]; Protocol Last Admin: 12/06/18 10:04 Dose: 1 tab Enoxaparin Sodium (Lovenox) 40 mg SC DAILY [facility]; Protocol Last Admin: 12/06/18 10:06 Dose: 40 mg Home Med (Famciclovir [Famvir]) 500 mg PO Q12 [facility] Last Admin: 12/06/18 10:03 Dose: 500 mg Meropenem 1 gm/ Sodium (Chloride) 100 mls @ 100 mls/hr IVPB Q8H [facility]; Protocol Last Admin: 12/06/18 10:06 Dose: 100 mls/hr Vancomycin HCl 1,250 mg/ (Sodium Chloride) 250 mls @ 166.667 mls/hr IVPB Q12@1000,2200 [facility]; Protocol Last Admin: 12/06/18 10:19 Dose: 166.667 mls/hr Ibuprofen (Motrin Tab) 600 mg PO Q8 PRN PRN Reason: Fever >100.4 F Insulin Human Lispro (Humalog) 0 units SC ACHS [facility]; Protocol Last Admin: 12/06/18 10:04 Dose: Not Given Levothyroxine Sodium (Synthroid) 50 mcg PO DAILY@0630 [facility] Last Admin: 12/06/18 05:39 Dose: 50 mcg Lisinopril (Zestril) 2.5 mg PO DAILY [facility] Metoprolol Succinate (Toprol Xl) 25 mg PO DAILY [facility] Multivitamins/Minerals (Therapeutic-M Tab) 1 tab PO DAILY [facility] Last Admin: 12/06/18 10:05 Dose: 1 tab Qbiyg-0-Gvan Ethyl Esters (Lovaza) 1 gm PO Q12 [facility] Last Admin: 12/06/18 10:04 Dose: 1 gm Raltegravir (Isentress) 400 mg PO Q12 [facility]; Protocol Last Admin: 12/06/18 10:05 Dose: 400 mg Ritonavir (Norvir) 100 mg PO DAILY [facility] Last Admin: 12/04/18 09:24 Dose: 100 mg Tamsulosin HCl (Flomax) 0.4 mg PO DAILY [facility] Last Admin: 12/06/18 10:05 Dose: 0.4 mg - Labs Labs: 12/06/18 05:50 - Additional Findings Additional findings: - Constitutional Appears: No Acute Distress - Head Exam Head Exam: ATRAUMATIC - Eye Exam Eye Exam: EOMI, PERRL - ENT Exam ENT Exam: Normal Oropharynx - Neck Exam Neck exam: Positive for: Full Rom Additional comments: supple - Respiratory Exam Respiratory Exam: NORMAL BREATHING PATTERN Additional comments: crackles heard on left base about 1/[address] up No wheezing - Cardiovascular Exam Cardiovascular Exam: RRR, +S1, +S2 - GI/Abdominal Exam GI & Abdominal Exam: Normal Bowel Sounds, Soft Additional comments: NT, ND - Extremities Exam Extremities exam: Positive for: normal inspection - Neurological Exam Neurological exam: Alert, Oriented x 3 Additional comments: strength 5/5 B/L UE and LE sensation intact b/l Laboratory Results - last 72 hr 12/03/18 12/03/18 12/03/18 13:25 13:25 13:45 WBC RBC Hgb Hct MCV MCH MCHC RDW Plt Count MPV Neut % (Auto) Lymph % (Auto) Mathews % (Auto) Eos % (Auto) Baso % (Auto) Neut # (Auto) Lymph # (Auto) Mathews # (Auto) Eos # (Auto) Baso # (Auto) Neutrophils % (Manual) 89 H Band Neutrophils % 6 H Lymphocytes % (Manual) 2 L Monocytes % (Manual) 3 Hypersegmented Polys Toxic Granulation Platelet Estimate Normal RBC Morphology Normal Hypochromasia (manual) pO2 VBG pH VBG pCO2 VBG HCO3 VBG Total CO2 VBG O2 Sat (Calc) VBG Base Excess VBG Potassium Sodium Chloride Glucose Lactate FiO2 Potassium Carbon Dioxide Anion Gap BUN Creatinine Est GFR ( Amer) Est GFR (Non-Af Amer) POC Glucose (mg/dL) Random Glucose Hemoglobin A1c Lactic Acid Calcium Total Bilirubin AST ALT Alkaline Phosphatase Total Protein Albumin Globulin Albumin/Globulin Ratio Triglycerides Cholesterol LDL Cholesterol Direct HDL Cholesterol TSH 3rd Generation Venous Blood Potassium Urine Color Yellow Urine Clarity Slight-cloudy Urine pH 5.0 Ur Specific [place] 1.023 Urine Protein 30 Urine Glucose (UA) Neg Urine Ketones Negative Urine Blood Moderate Urine Nitrate Negative Urine Bilirubin Negative Urine Urobilinogen 0.2-1.0 Ur Leukocyte Esterase Neg Urine RBC (Auto) 16 H Urine Microscopic WBC 3 Ur Squamous Epith Cells < 1 Urine Bacteria Rare Hyaline Casts 3-5 H Vancomycin Trough Influenza Typ A,B (EIA) Negative for flu a/b Ur L.pneumophila Ag 12/03/18 12/03/18 12/03/18 17:10 18:03 19:00 WBC RBC Hgb Hct MCV MCH MCHC RDW Plt Count MPV Neut % (Auto) Lymph % (Auto) Mathews % (Auto) Eos % (Auto) Baso % (Auto) Neut # (Auto) Lymph # (Auto) Mathews # (Auto) Eos # (Auto) Baso # (Auto) Neutrophils % (Manual) Band Neutrophils % Lymphocytes % (Manual) Monocytes % (Manual) Hypersegmented Polys Toxic Granulation Platelet Estimate RBC Morphology Hypochromasia (manual) pO2 22 L VBG pH 7.36 VBG pCO2 42 VBG HCO3 21.8 VBG Total CO2 25.0 VBG O2 Sat (Calc) 40.0 VBG Base Excess -1.8 L VBG Potassium 4.0 Sodium 134.0 Chloride 101.0 Glucose 189 H Lactate 2.9 H FiO2 21.0 Potassium Carbon Dioxide Anion Gap BUN Creatinine Est GFR ( Amer) Est GFR (Non-Af Amer) POC Glucose (mg/dL) Random Glucose Hemoglobin A1c Lactic Acid Calcium Total Bilirubin AST ALT Alkaline Phosphatase Total Protein Albumin Globulin Albumin/Globulin Ratio Triglycerides 221 H Cholesterol 185 LDL Cholesterol Direct 95 HDL Cholesterol 27 L TSH 3rd Generation Venous Blood Potassium 4.0 Urine Color Urine Clarity Urine pH Ur Specific [place] Urine Protein Urine Glucose (UA) Urine Ketones Urine Blood Urine Nitrate Urine Bilirubin Urine Urobilinogen Ur Leukocyte Esterase Urine RBC (Auto) Urine Microscopic WBC Ur Squamous Epith Cells Urine Bacteria Hyaline Casts Vancomycin Trough Influenza Typ A,B (EIA) Ur L.pneumophila Ag Negative 12/03/18 12/03/18 12/04/18 19:42 23:35 04:18 WBC 20.5 H RBC 3.62 L Hgb 11.4 L Hct 33.9 L MCV 93.6 MCH 31.5 H MCHC 33.7 RDW 14.5 Plt Count 243 MPV 7.6 Neut % (Auto) 90.6 H Lymph % (Auto) 5.5 L Mathews % (Auto) 3.5 Eos % (Auto) 0.1 Baso % (Auto) 0.3 Neut # (Auto) 18.5 H Lymph # (Auto) 1.1 Mathews # (Auto) 0.7 Eos # (Auto) 0.0 Baso # (Auto) 0.1 Neutrophils % (Manual) 81 H Band Neutrophils % 12 H* Lymphocytes % (Manual) 5 L Monocytes % (Manual) 2 Hypersegmented Polys Present Toxic Granulation Present Platelet Estimate Normal RBC Morphology Hypochromasia (manual) Slight pO2 VBG pH VBG pCO2 VBG HCO3 VBG Total CO2 VBG O2 Sat (Calc) VBG Base Excess VBG Potassium Sodium Chloride Glucose Lactate FiO2 Potassium Carbon Dioxide Anion Gap BUN Creatinine Est GFR ( Amer) Est GFR (Non-Af Amer) POC Glucose (mg/dL) 204 H 215 H Random Glucose Hemoglobin A1c Lactic Acid Calcium Total Bilirubin AST ALT Alkaline Phosphatase Total Protein Albumin Globulin Albumin/Globulin Ratio Triglycerides Cholesterol LDL Cholesterol Direct HDL Cholesterol TSH 3rd Generation Venous Blood Potassium Urine Color Urine Clarity Urine pH Ur Specific [place] Urine Protein Urine Glucose (UA) Urine Ketones Urine Blood Urine Nitrate Urine Bilirubin Urine Urobilinogen Ur Leukocyte Esterase Urine RBC (Auto) Urine Microscopic WBC Ur Squamous Epith Cells Urine Bacteria Hyaline Casts Vancomycin Trough Influenza Typ A,B (EIA) Ur L.pneumophila Ag 12/04/18 12/04/18 12/04/18 04:18 04:18 06:11 WBC RBC Hgb Hct MCV MCH MCHC RDW Plt Count MPV Neut % (Auto) Lymph % (Auto) Mathews % (Auto) Eos % (Auto) Baso % (Auto) Neut # (Auto) Lymph # (Auto) Mathews # (Auto) Eos # (Auto) Baso # (Auto) Neutrophils % (Manual) Band Neutrophils % Lymphocytes % (Manual) Monocytes % (Manual) Hypersegmented Polys Toxic Granulation Platelet Estimate RBC Morphology Hypochromasia (manual) pO2 VBG pH VBG pCO2 VBG HCO3 VBG Total CO2 VBG O2 Sat (Calc) VBG Base Excess VBG Potassium Sodium 134 Chloride 103 Glucose Lactate FiO2 Potassium 3.7 Carbon Dioxide 22 Anion Gap 13 BUN 29 H Creatinine 1.0 Est GFR ( Amer) > 60 Est GFR (Non-Af Amer) > 60 POC Glucose (mg/dL) 155 H Random Glucose 132 H Hemoglobin A1c Lactic Acid 1.0 Calcium 9.1 Total Bilirubin 0.7 AST 123 H D ALT 47 Alkaline Phosphatase 96 Total Protein 7.3 Albumin 3.7 Globulin 3.6 Albumin/Globulin Ratio 1.0 Triglycerides Cholesterol LDL Cholesterol Direct HDL Cholesterol TSH 3rd Generation Venous Blood Potassium Urine Color Urine Clarity Urine pH Ur Specific [place] Urine Protein Urine Glucose (UA) Urine Ketones Urine Blood Urine Nitrate Urine Bilirubin Urine Urobilinogen Ur Leukocyte Esterase Urine RBC (Auto) Urine Microscopic WBC Ur Squamous Epith Cells Urine Bacteria Hyaline Casts Vancomycin Trough Influenza Typ A,B (EIA) Ur L.pneumophila Ag 12/04/18 12/04/18 12/04/18 08:49 11:22 17:03 WBC RBC Hgb Hct MCV MCH MCHC RDW Plt Count MPV Neut % (Auto) Lymph % (Auto) Mathews % (Auto) Eos % (Auto) Baso % (Auto) Neut # (Auto) Lymph # (Auto) Mathews # (Auto) Eos # (Auto) Baso # (Auto) Neutrophils % (Manual) Band Neutrophils % Lymphocytes % (Manual) Monocytes % (Manual) Hypersegmented Polys Toxic Granulation Platelet Estimate RBC Morphology Hypochromasia (manual) pO2 VBG pH VBG pCO2 VBG HCO3 VBG Total CO2 VBG O2 Sat (Calc) VBG Base Excess VBG Potassium Sodium Chloride Glucose Lactate FiO2 Potassium Carbon Dioxide Anion Gap BUN Creatinine Est GFR ( Amer) Est GFR (Non-Af Amer) POC Glucose (mg/dL) 200 H 151 H Random Glucose Hemoglobin A1c Lactic Acid Calcium Total Bilirubin AST ALT Alkaline Phosphatase Total Protein Albumin Globulin Albumin/Globulin Ratio Triglycerides Cholesterol LDL Cholesterol Direct HDL Cholesterol TSH 3rd Generation 1.07 Venous Blood Potassium Urine Color Urine Clarity Urine pH Ur Specific [place] Urine Protein Urine Glucose (UA) Urine Ketones Urine Blood Urine Nitrate Urine Bilirubin Urine Urobilinogen Ur Leukocyte Esterase Urine RBC (Auto) Urine Microscopic WBC Ur Squamous Epith Cells Urine Bacteria Hyaline Casts Vancomycin Trough Influenza Typ A,B (EIA) Ur L.pneumophila Ag 12/04/18 12/05/18 12/05/18 21:06 05:00 05:00 WBC 12.0 H RBC 3.48 L Hgb 10.7 L Hct 32.5 L MCV 93.4 MCH 30.8 MCHC 33.0 RDW 14.5 Plt Count 242 MPV 7.4 Neut % (Auto) 84.8 H Lymph % (Auto) 9.9 L Mathews % (Auto) 4.3 Eos % (Auto) 0.7 Baso % (Auto) 0.3 Neut # (Auto) 10.2 H Lymph # (Auto) 1.2 Mathews # (Auto) 0.5 Eos # (Auto) 0.1 Baso # (Auto) 0.0 Neutrophils % (Manual) Band Neutrophils % Lymphocytes % (Manual) Monocytes % (Manual) Hypersegmented Polys Toxic Granulation Platelet Estimate RBC Morphology Hypochromasia (manual) pO2 VBG pH VBG pCO2 VBG HCO3 VBG Total CO2 VBG O2 Sat (Calc) VBG Base Excess VBG Potassium Sodium 138 Chloride 107 Glucose Lactate FiO2 Potassium 4.0 Carbon Dioxide 24 Anion Gap 11 BUN 20 Creatinine 1.0 Est GFR ( Amer) > 60 Est GFR (Non-Af Amer) > 60 POC Glucose (mg/dL) 186 H Random Glucose 155 H Hemoglobin A1c Lactic Acid Calcium 8.9 Total Bilirubin AST ALT Alkaline Phosphatase Total Protein Albumin Globulin Albumin/Globulin Ratio Triglycerides Cholesterol LDL Cholesterol Direct HDL Cholesterol TSH 3rd Generation Venous Blood Potassium Urine Color Urine Clarity Urine pH Ur Specific [place] Urine Protein Urine Glucose (UA) Urine Ketones Urine Blood Urine Nitrate Urine Bilirubin Urine Urobilinogen Ur Leukocyte Esterase Urine RBC (Auto) Urine Microscopic WBC Ur Squamous Epith Cells Urine Bacteria Hyaline Casts Vancomycin Trough Influenza Typ A,B (EIA) Ur L.pneumophila Ag 12/05/18 12/05/18 12/05/18 05:37 11:29 13:03 WBC RBC Hgb Hct MCV MCH MCHC RDW Plt Count MPV Neut % (Auto) Lymph % (Auto) Mathews % (Auto) Eos % (Auto) Baso % (Auto) Neut # (Auto) Lymph # (Auto) Mathews # (Auto) Eos # (Auto) Baso # (Auto) Neutrophils % (Manual) Band Neutrophils % Lymphocytes % (Manual) Monocytes % (Manual) Hypersegmented Polys Toxic Granulation Platelet Estimate RBC Morphology Hypochromasia (manual) pO2 VBG pH VBG pCO2 VBG HCO3 VBG Total CO2 VBG O2 Sat (Calc) VBG Base Excess VBG Potassium Sodium Chloride Glucose Lactate FiO2 Potassium Carbon Dioxide Anion Gap BUN Creatinine Est GFR ( Amer) Est GFR (Non-Af Amer) POC Glucose (mg/dL) 162 H 172 H Random Glucose Hemoglobin A1c 7.2 H Lactic Acid Calcium Total Bilirubin AST ALT Alkaline Phosphatase Total Protein Albumin Globulin Albumin/Globulin Ratio Triglycerides Cholesterol LDL Cholesterol Direct HDL Cholesterol TSH 3rd Generation Venous Blood Potassium Urine Color Urine Clarity Urine pH Ur Specific [place] Urine Protein Urine Glucose (UA) Urine Ketones Urine Blood Urine Nitrate Urine Bilirubin Urine Urobilinogen Ur Leukocyte Esterase Urine RBC (Auto) Urine Microscopic WBC Ur Squamous Epith Cells Urine Bacteria Hyaline Casts Vancomycin Trough Influenza Typ A,B (EIA) Ur L.pneumophila Ag 12/05/18 12/05/18 12/06/18 16:11 21:06 05:43 WBC RBC Hgb Hct MCV MCH MCHC RDW Plt Count MPV Neut % (Auto) Lymph % (Auto) Mathews % (Auto) Eos % (Auto) Baso % (Auto) Neut # (Auto) Lymph # (Auto) Mathews # (Auto) Eos # (Auto) Baso # (Auto) Neutrophils % (Manual) Band Neutrophils % Lymphocytes % (Manual) Monocytes % (Manual) Hypersegmented Polys Toxic Granulation Platelet Estimate RBC Morphology Hypochromasia (manual) pO2 VBG pH VBG pCO2 VBG HCO3 VBG Total CO2 VBG O2 Sat (Calc) VBG Base Excess VBG Potassium Sodium Chloride Glucose Lactate FiO2 Potassium Carbon Dioxide Anion Gap BUN Creatinine Est GFR ( Amer) Est GFR (Non-Af Amer) POC Glucose (mg/dL) 149 H 202 H 172 H Random Glucose Hemoglobin A1c Lactic Acid Calcium Total Bilirubin AST ALT Alkaline Phosphatase Total Protein Albumin Globulin Albumin/Globulin Ratio Triglycerides Cholesterol LDL Cholesterol Direct HDL Cholesterol TSH 3rd Generation Venous Blood Potassium Urine Color Urine Clarity Urine pH Ur Specific [place] Urine Protein Urine Glucose (UA) Urine Ketones Urine Blood Urine Nitrate Urine Bilirubin Urine Urobilinogen Ur Leukocyte Esterase Urine RBC (Auto) Urine Microscopic WBC Ur Squamous Epith Cells Urine Bacteria Hyaline Casts Vancomycin Trough Influenza Typ A,B (EIA) Ur L.pneumophila Ag 12/06/18 12/06/18 12/06/18 05:50 05:50 10:49 WBC 8.3 RBC 3.64 L Hgb 11.5 L Hct 34.0 L MCV 93.2 MCH 31.7 H MCHC 34.0 RDW 14.2 Plt Count 273 MPV 7.7 Neut % (Auto) 77.5 H Lymph % (Auto) 13.2 L Mathews % (Auto) 7.1 Eos % (Auto) 1.6 Baso % (Auto) 0.6 Neut # (Auto) 6.4 Lymph # (Auto) 1.1 Mathews # (Auto) 0.6 Eos # (Auto) 0.1 Baso # (Auto) 0.1 Neutrophils % (Manual) Band Neutrophils % Lymphocytes % (Manual) Monocytes % (Manual) Hypersegmented Polys Toxic Granulation Platelet Estimate RBC Morphology Hypochromasia (manual) pO2 VBG pH VBG pCO2 VBG HCO3 VBG Total CO2 VBG O2 Sat (Calc) VBG Base Excess VBG Potassium Sodium Chloride Glucose Lactate FiO2 Potassium Carbon Dioxide Anion Gap BUN Creatinine Est GFR ( Amer) Est GFR (Non-Af Amer) POC Glucose (mg/dL) 285 H Random Glucose Hemoglobin A1c Lactic Acid Calcium Total Bilirubin AST ALT Alkaline Phosphatase Total Protein Albumin Globulin Albumin/Globulin Ratio Triglycerides Cholesterol LDL Cholesterol Direct HDL Cholesterol TSH 3rd Generation Venous Blood Potassium Urine Color Urine Clarity Urine pH Ur Specific [place] Urine Protein Urine Glucose (UA) Urine Ketones Urine Blood Urine Nitrate Urine Bilirubin Urine Urobilinogen Ur Leukocyte Esterase Urine RBC (Auto) Urine Microscopic WBC Ur Squamous Epith Cells Urine Bacteria Hyaline Casts Vancomycin Trough 11.2 H Influenza Typ A,B (EIA) Ur L.pneumophila Ag Microbiology 12/03/18 14:01 Blood-Venous Blood Culture - Preliminary NO GROWTH AFTER 3 DAYS 12/03/18 14:01 Blood-Venous Blood Culture - Preliminary NO GROWTH AFTER 3 DAYS 12/03/18 09:00 Naris MRSA Culture (Admit) - Final MRSA NOT DETECTED 12/03/18 13:45 Urine,Clean Catch Urine Culture - Final No Growth (<1,000 CFU/ML) Assessment and Plan (1) Cerebrovascular accident, embolic Status: Acute (2) HIV (human immunodeficiency virus infection) Status: Acute (3) Leukocytosis Status: Acute (4) Fever Status: Acute (5) Chronic hip pain, bilateral Status: Acute (6) Hypothyroidism Status: Acute - Assessment and Plan (Free Text) Assessment: A/P- 73 year old male with HIV ( well controlled), DM II, HTN, Hypothyroidism, b/l chronic hip pain from arthritis and spinal stenosis admitted with change in MS , weakness and hip pain. clinically much improved. afebrile past 48 hours leukocytosis resolved today. Chest CT- extensive left lower lung Pneumonia. MRI of the brain - as per report small foci of acute Left PICA territory infarction UA- neg blood cx-neg x 2 urine cx- neg TTE- no mention of any vegetations as per report no need for TEEas per meter repairer as per neuro mini stroke was secondary to atherosclerosis and advise plavix and aspirin PLan- await sputum cx. advise to continue with IV meropnem day #3 advise to continue with IV vanco for empiric staph coverage. day #3 keep trough <15. advise at least 5-7 days of IV antibiotics for this pneumonia. all above d/w patient at length and he verbalizes full understanding of all above and agrees with above plan of care.
--- NOTE | 2018-12-06 12:24 | CP.PCM.PN ---
Subjective - Date & Time of Evaluation Date of Evaluation: 12/05/18 Time of Evaluation: 12:00 - Subjective Subjective: pt seen and evaluated in his room with his sister wanting to go home neuro sx improved Objective - Vital Signs/Intake and Output Vital Signs (last 24 hours): Temp Pulse Resp BP Pulse Ox 98.0 F 82 20 154/80 H 97 12/06/18 12:00 12/06/18 12:00 12/06/18 12:00 12/06/18 12:00 12/06/18 12:00 - Medications Medications: Current Medications Aspirin (Ecotrin) 81 mg PO DAILY [facility] Last Admin: 12/06/18 10:05 Dose: 81 mg Atorvastatin Calcium (Lipitor) 40 mg PO DAILY [facility] Last Admin: 12/06/18 10:06 Dose: 40 mg Clopidogrel Bisulfate (Plavix) 75 mg PO DAILY [facility] Last Admin: 12/06/18 10:05 Dose: 75 mg Darunavir (Prezista) 800 mg PO DAILY [facility]; Protocol Last Admin: 12/06/18 10:05 Dose: 800 mg Emtricitabine/Tenofovir (Truvada 200 Mg-300 Mg) 1 tab PO DAILY [facility]; Protocol Last Admin: 12/06/18 10:04 Dose: 1 tab Enoxaparin Sodium (Lovenox) 40 mg SC DAILY [facility]; Protocol Last Admin: 12/06/18 10:06 Dose: 40 mg Home Med (Famciclovir [Famvir]) 500 mg PO Q12 [facility] Last Admin: 12/06/18 10:03 Dose: 500 mg Meropenem 1 gm/ Sodium (Chloride) 100 mls @ 100 mls/hr IVPB Q8H [facility]; Protocol Last Admin: 12/06/18 10:06 Dose: 100 mls/hr Vancomycin HCl 1,250 mg/ (Sodium Chloride) 250 mls @ 166.667 mls/hr IVPB Q12@1000,2200 [facility]; Protocol Last Admin: 12/06/18 10:19 Dose: 166.667 mls/hr Ibuprofen (Motrin Tab) 600 mg PO Q8 PRN PRN Reason: Fever >100.4 F Insulin Human Lispro (Humalog) 0 units SC ACHS [facility]; Protocol Last Admin: 12/06/18 10:04 Dose: Not Given Levothyroxine Sodium (Synthroid) 50 mcg PO DAILY@0630 [facility] Last Admin: 12/06/18 05:39 Dose: 50 mcg Lisinopril (Zestril) 2.5 mg PO DAILY [facility] Metoprolol Succinate (Toprol Xl) 25 mg PO DAILY [facility] Multivitamins/Minerals (Therapeutic-M Tab) 1 tab PO DAILY [facility] Last Admin: 12/06/18 10:05 Dose: 1 tab [id number] Ethyl Esters (Lovaza) 1 gm PO Q12 [facility] Last Admin: 12/06/18 10:04 Dose: 1 gm Raltegravir (Isentress) 400 mg PO Q12 [facility]; Protocol Last Admin: 12/06/18 10:05 Dose: 400 mg Ritonavir (Norvir) 100 mg PO DAILY [facility] Last Admin: 12/04/18 09:24 Dose: 100 mg Tamsulosin HCl (Flomax) 0.4 mg PO DAILY [facility] Last Admin: 12/06/18 10:05 Dose: 0.4 mg - Labs Labs: 12/06/18 05:50 12/05/18 05:00 PT 12.4 Seconds (9.8-13.1) 12/03/18 13:25 INR 1.1 12/03/18 13:25 APTT 29.6 Seconds (25.6-37.1) 12/03/18 13:25 - Constitutional Appears: Well - Head Exam Head Exam: ATRAUMATIC, NORMAL INSPECTION, NORMOCEPHALIC - Eye Exam Eye Exam: EOMI, Normal appearance, PERRL Pupil Exam: NORMAL ACCOMODATION, PERRL - ENT Exam ENT Exam: Mucous Membranes Moist, Normal Exam - Neck Exam Neck Exam: Full ROM, Normal Inspection. absent: Lymphadenopathy - Respiratory Exam Respiratory Exam: Clear to Ausculation Bilateral, NORMAL BREATHING PATTERN - Cardiovascular Exam Cardiovascular Exam: REGULAR RHYTHM, +S1, +S2. absent: Murmur - GI/Abdominal Exam GI & Abdominal Exam: Soft, Normal Bowel Sounds. absent: Tenderness - Extremities Exam Extremities Exam: Full ROM, Normal Capillary Refill, Normal Inspection. absent: Joint Swelling, Pedal Edema - Back Exam Back Exam: NORMAL INSPECTION - Neurological Exam Neurological Exam: Alert, Awake, CN II-XII Intact, Normal Gait, Oriented x3 - Psychiatric Exam Psychiatric exam: Normal Affect, Normal Mood - Skin Skin Exam: Dry, Intact, Normal Color, Warm Assessment and Plan (1) Cerebrovascular accident, embolic Assessment & Plan: improving back to baseline on asa & plavix per neuro cont toprol xl increase lisinopril to 20mg po daily as BP high cont statins,lovaza consider adding zetia for vascular protection Status: Acute (2) HIV (human immunodeficiency virus infection) Status: Acute (3) Hypothyroidism Status: Acute
[2018-12-06] MEDS: Metoprolol Succinate 25 mg XL Tab PO SCH (12:38)
[2018-12-07] MEDS: Meropenem 1 GM in Sodium Chloride 0.9% 100 ML IVPB SCH ×3 (03:18→16:59)
[2018-12-07] MEDS: Levothyroxine 50 MCG TAB PO SCH (05:38)
[2018-12-07 06:52] LABS: HEMOGLOBIN 12.1 g/dL (12.0-18.0); MEAN CELL VOLUME 93.3 fl (80.0-94.0); MEAN CORPUSCULAR HEMOGLOBIN 31.3 pg (27.0-31.0); MEAN CORPUSCULAR HGB CONC 33.5 g/dL (33.0-37.0); RBC 3.86 Mil/uL (4.40-5.90); RED CELL DISTRIBUTION WIDTH 14.5 % (11.5-14.5); WHITE BLOOD COUNT 8.2 K/uL (4.8-10.8)
[2018-12-07 07:20] LABS: ALT/SGPT 43 U/L (21-72); AST/SGOT 64 U/L (17-59); BLOOD UREA NITROGEN 17 mg/dl (9-20); CALCIUM 9.6 mg/dL (8.4-10.2); GFR NON-AFRICAN AMERICAN > 60
[2018-12-07] MEDS: Insulin Lispro (humaLOG) 100 Units/ml Inj SC SCH ×4 (08:57→22:45)
[2018-12-07] MEDS: FAMCICLOVIR 500 MG PO SCH ×2 (09:34→21:36)
[2018-12-07] MEDS: Enoxaparin 40 mg Syringe SC SCH (09:37)
[2018-12-07] MEDS: Omega-3-Acid Ethyl Esters 1 GM Cap PO SCH ×2 (09:37→21:37)
[2018-12-07] MEDS: Multivitamin With Minerals Tab PO SCH (09:39)
[2018-12-07] MEDS: Metoprolol Succinate 25 mg XL Tab PO SCH (09:40)
[2018-12-07] MEDS: Emtricitabine-Tenofovir 200 mg-300 mg Tab PO SCH (09:40)
--- NOTE | 2018-12-07 10:34 | CP.PCM.PN ---
Subjective - Date & Time of Evaluation Date of Evaluation: 12/07/18 Time of Evaluation: 09:14 - Subjective Subjective: Patient was seen and examined this morning at bedside, seated upright in bed breathing comfortably with saturation at 96% on room air. Patient reports cough with minimal sputum production is improving. He denies any f/c/n/v/diarrhea, cp or sob. Objective - Vital Signs/Intake and Output Vital Signs (last 24 hours): Temp Pulse Resp BP Pulse Ox 97.8 F 80 20 157/82 H 96 12/07/18 08:11 12/07/18 09:40 12/07/18 08:11 12/07/18 09:40 12/07/18 08:11 - Medications Medications: Current Medications Aspirin (Ecotrin) 81 mg PO DAILY [facility] Last Admin: 12/07/18 09:33 Dose: 81 mg Atorvastatin Calcium (Lipitor) 40 mg PO DAILY [facility] Last Admin: 12/07/18 09:36 Dose: 40 mg Clopidogrel Bisulfate (Plavix) 75 mg PO DAILY [facility] Last Admin: 12/07/18 09:39 Dose: 75 mg Darunavir (Prezista) 800 mg PO DAILY [facility]; Protocol Last Admin: 12/07/18 09:39 Dose: 800 mg Emtricitabine/Tenofovir (Truvada 200 Mg-300 Mg) 1 tab PO DAILY [facility]; Protocol Last Admin: 12/07/18 09:40 Dose: 1 tab Enoxaparin Sodium (Lovenox) 40 mg SC DAILY [facility]; Protocol Last Admin: 12/07/18 09:37 Dose: 40 mg Home Med (Famciclovir [Famvir]) 500 mg PO Q12 [facility] Last Admin: 12/07/18 09:34 Dose: 500 mg Meropenem 1 gm/ Sodium (Chloride) 100 mls @ 100 mls/hr IVPB Q8H [facility]; Protocol Last Admin: 12/07/18 09:38 Dose: 100 mls/hr Vancomycin HCl 1,250 mg/ (Sodium Chloride) 250 mls @ 166.667 mls/hr IVPB Q12@1000,2200 [facility]; Protocol Last Admin: 12/06/18 21:30 Dose: 166.667 mls/hr Ibuprofen (Motrin Tab) 600 mg PO Q8 PRN PRN Reason: Fever >100.4 F Insulin Human Lispro (Humalog) 0 units SC ACHS [facility]; Protocol Last Admin: 12/07/18 08:57 Dose: 2 units Levothyroxine Sodium (Synthroid) 50 mcg PO DAILY@0630 [facility] Last Admin: 12/07/18 05:38 Dose: 50 mcg Lisinopril (Zestril) 20 mg PO DAILY [facility] Last Admin: 12/07/18 05:39 Dose: 20 mg Metoprolol Succinate (Toprol Xl) 25 mg PO DAILY [facility] Last Admin: 12/07/18 09:40 Dose: 25 mg Multivitamins/Minerals (Therapeutic-M Tab) 1 tab PO DAILY [facility] Last Admin: 12/07/18 09:39 Dose: 1 tab Ezyfx-3-Farp Ethyl Esters (Lovaza) 1 gm PO Q12 [facility] Last Admin: 12/07/18 09:37 Dose: 1 gm Raltegravir (Isentress) 400 mg PO Q12 [facility]; Protocol Last Admin: 12/07/18 09:36 Dose: 400 mg Ritonavir (Norvir) 100 mg PO DAILY [facility] Last Admin: 12/04/18 09:24 Dose: 100 mg Tamsulosin HCl (Flomax) 0.4 mg PO DAILY [facility] Last Admin: 12/07/18 09:34 Dose: 0.4 mg - Labs Labs: 12/07/18 05:41 12/07/18 05:41 PT 12.4 Seconds (9.8-13.1) 12/03/18 13:25 INR 1.1 12/03/18 13:25 APTT 29.6 Seconds (25.6-37.1) 12/03/18 13:25 - Constitutional Appears: Non-toxic - Head Exam Head Exam: ATRAUMATIC, NORMAL INSPECTION - Eye Exam Pupil Exam: PERRL - ENT Exam ENT Exam: Mucous Membranes Moist - Neck Exam Neck Exam: Full ROM - Respiratory Exam Additional comments: left sided crackles; no rhonchi or wheeze - Cardiovascular Exam Cardiovascular Exam: REGULAR RHYTHM, +S1, +S2 - GI/Abdominal Exam GI & Abdominal Exam: Soft. absent: Guarding, Rigid, Tenderness - Extremities Exam Extremities Exam: absent: Calf Tenderness - Neurological Exam Neurological Exam: Alert, Awake, Normal Gait, Oriented x3 Neuro motor strength exam: Left Upper Extremity: 5, Right Upper Extremity: 5, Left Lower Extremity: 5, Right Lower Extremity: 5 - Psychiatric Exam Psychiatric exam: Normal Mood - Skin Skin Exam: Dry Assessment and Plan - Assessment and Plan (Free Text) Assessment: 73 M old male with PMH of HIV/undetected VL, DM-II, HTN, hypothyroidism, BPH, history of lumbar spinal stenosis, and history of bilateral hip arthritis admitted to [facility] for evaluation and treatment of embolic stroke, fever and b/l hip pain. Acute CVA/Embolic etiology - MRI head: few small foci of acute Left PICA teritory infarction in the left posterior crebellar hemisphere - Dr. Fontenot, recommendations- c.w aspirin & statin - Dr. De Paz recommendations- no indication for GINA as this time - Echocardiogram neg for any valvular pathology - C/w PT/OT - CTA head and Neck: no large vessel occlusion of intracranial arterial circulation IMPRESSION: 1. No large vessel occlusion of of intracranial arterial circulation. No definite aneurysm or arteriovascular malformation. 2. No significant occlusion or significant stenosis in bilateral common and internal carotid as well as vertebral arteries in the neck. 3. 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 4. Degenerative grade 1 spondylolisthesis C4-5 as per above. Plan: Sepsis secondary to LLL pneumonia -Fever, tachycardia, Leukocytosis on admission; -Chest CT: confirmed CXR findings with report stating extensive left lower lobe infiltrate -Dr. Garcia, recommendations appreciated -C/w vanco DAY 4 & meropenem DAY [address] Garcia -Keep trough below <15 -Echo negative for any valvular pathology -Mycoplasma/leginella- negative; Blood cultures &Urine Cx- negative; FU Sputum cx -FU AM labs CAP (LLL) -Blood & urine cx neg -C/w vanco DAY 4 & meropenem DAY 4 B/l Hip pain with improved weakness and history of bilateral hip arthritis - MRI L-spine: congenitally narrow spinal canal - Pain management - PT/OT Human Immunodeficiency Virus with undetected Viral load - Chronic, controlled - Dr. Garcia recommendations appreciated - C/w raltegravir, truvada, prezista, Famciclovir HTN, Chronic, controlled -C/w Metoprolol 25mg daily and Lisinopril 2.5 mg daily NIDDM-II - cont to hold Metformin - Sliding scale/Hypoglycemic protocol - [facility]ed [facility]
[2018-12-08] MEDS: Meropenem 1 GM in Sodium Chloride 0.9% 100 ML IVPB SCH ×2 (01:31→09:08)
[2018-12-08 02:14] VITALS: RESP 20; O2SAT 95
[2018-12-08] MEDS: Levothyroxine 50 MCG TAB PO SCH (05:31)
[2018-12-08] MEDS ORDERED: Lactobacillus Acidophilus 500 MU Cap PO SCH (05:42)
[2018-12-08 05:44] LABS: BASO # 0.1 K/uL (0.0-0.2); BASO % 0.7 % (0.0-2.0); EOS # 0.1 K/uL (0.0-0.7); EOS % 1.4 % (0.0-4.0); HEMOGLOBIN 12.5 g/dL (12.0-18.0); LYMPH # 1.3 K/uL (1.0-4.3); LYMPH % 13.5 % (20.0-40.0); MEAN CELL VOLUME 93.4 fl (80.0-94.0); MEAN CORPUSCULAR HEMOGLOBIN 31.1 pg (27.0-31.0); MEAN CORPUSCULAR HGB CONC 33.3 g/dL (33.0-37.0); MEAN PLATELET VOLUME 7.2 fl (7.2-11.7); MONO # 1.2 K/uL (0.0-0.8); MONO % 11.9 % (0.0-10.0); NEUT # 7.1 K/uL (1.8-7.0); NEUT % 72.5 % (50.0-75.0); NRBC % 0.2 % (0.0-0.0); RBC 4.03 Mil/uL (4.40-5.90); RED CELL DISTRIBUTION WIDTH 14.1 % (11.5-14.5); WHITE BLOOD COUNT 9.8 K/uL (4.8-10.8)
[2018-12-08 06:07] LABS: ALBUMIN 4.1 g/dL (3.5-5.0); ALT/SGPT 43 U/L (21-72); AST/SGOT 51 U/L (17-59); BLOOD UREA NITROGEN 20 mg/dl (9-20); CALCIUM 9.4 mg/dL (8.4-10.2); GFR NON-AFRICAN AMERICAN > 60
--- NOTE | 2018-12-08 07:49 | PQF ---
HIV + only PROVIDER RESPONSE TEXT: REVIEWER QUERY TEXT: HIV Clarification and Associated Conditions Documentation of HIV well controlled last CD4: 320 and VL <20 UD. + Cough, fatigue, leg weakness, confusion. Noted to have an Acute CVA , Sepsis and LLL Pneumonia. HIV (Human immunodeficiency virus) is documented in the medical record. Please specify the type Such as: -- Acquired immune deficiency syndrome [AIDS] -- HIV + only -- With current or previous HIV-related condition (please specify related condition) -- Exposure to HIV -- Inconclusive serologic evidence of HIV -- Other, please specify Also please include any associated conditions, if applicable. The patient's Clinical Indicators include: HX HIV Rx: Preszista, Truvada, Famvir, Isentress, CT Chest Extensive left lower lobe infiltrate/pneumonia rx: Merrem, Vancomycin Query created by: Eloisa Denise on 12/08/2018 7:27 AM Electronically signed by: Shelby Mehta 12/08/2018 7:46 AM MTDD
[2018-12-08] MEDS: Multivitamin With Minerals Tab PO SCH (08:23)
[2018-12-08] MEDS: Emtricitabine-Tenofovir 200 mg-300 mg Tab PO SCH (08:23)
[2018-12-08] MEDS: Omega-3-Acid Ethyl Esters 1 GM Cap PO SCH (08:23)
[2018-12-08] MEDS: FAMCICLOVIR 500 MG PO SCH (08:24)
[2018-12-08] MEDS: Enoxaparin 40 mg Syringe SC SCH (08:25)
[2018-12-08] MEDS: Metoprolol Succinate 25 mg XL Tab PO SCH (08:29)
[2018-12-08 08:31] VITALS: PULSE 81
[2018-12-08] MEDS: Insulin Lispro (humaLOG) 100 Units/ml Inj SC SCH ×2 (08:31→13:46)
--- NOTE | 2018-12-08 08:33 | CON ---
DATE: 12/05/2018 Neurology consult called by . HISTORY OF PRESENT ILLNESS: This is a 73-year-old male who has a past medical history of HIV, CD4 count 320, viral load injectable. The patient of , has diabetes and hypertension, presents to the emergency room on 12/03/2018 at midnight with worsening bilateral hip pain that has been going on for a few days. Of note, the patient is a hip replacement candidate and was on chronic oxycodone and confused today. He was brought into the hospital. Neurology consult was called on 12/04/2018, after MRI showed a small left ANALYSIS CONSULTANT stroke. Of note, the patient also has hypothyroidism, , and bilateral hip arthritis. On my history taking when seeing the patient, he denies dizziness in coordination or prior events. He also said that he felt well at that time. REVIEW OF SYSTEMS: No headache. No nausea. No vomiting or diarrhea. No aphasia. No other complaints. PAST SURGICAL HISTORY: Recent ventral hernia and inguinal repair. SOCIAL HISTORY: Lives with sister. FAMILY HISTORY: Heart disease, COPD. ALLERGIES: NO KNOWN DRUG ALLERGIES. PHYSICAL EXAMINATION: NEUROLOGIC: The patient has . He was not a ANALYSIS CONSULTANT candidate due to presentation. Alert, awake, oriented x3. Pupils are equal, round, and reactive to light. EOMI. Cranial nerves II-XII normal. Motor tone, strength 5/5 upper and lower limbs bilaterally. Sensory is intact to light touch, pain, position, sense. Gait is normal. No dysmetria. Reflexes are +1 upper and lower limbs bilaterally. Toes are downgoing. There is no clonus. LABORATORY DATA: MRI of the brain shows the following: foci in the left paramedian posterior structures. CT of the head and neck on 12/03/2018 shows the following: No stenosis. No disease. Labs were normal with elevated triglyceride and cholesterol. IMPRESSION: This is a 73-year-old male with arteriosclerosis, the etiology of acute embolic left has no findings. PLAN: We will start stroke workup. needs to be done. Discussed with . We will send him home on aspirin and Plavix, PT, ST, OT. Thank you for this consult. Joel Fontenot MD
[2018-12-08 08:59] VITALS: BP 132/78; TEMP 98.4
--- NOTE | 2018-12-08 09:53 | CP.PCM.PN ---
Subjective - Date & Time of Evaluation Date of Evaluation: 12/08/18 Time of Evaluation: 09:53 - Subjective Subjective: ID note- Pt. seen and examined today. He denies any fever or chills. states he feels much better. he is finally able to expectorate . wants to go home. denies any sob and walked around the hallway today and his O2 sat was 96% on RA after walking. Objective - Vital Signs/Intake and Output Vital Signs (last 24 hours): Temp Pulse Resp BP Pulse Ox 98.4 F 81 20 132/78 95 12/08/18 08:57 12/08/18 08:57 12/08/18 08:57 12/08/18 08:57 12/08/18 08:57 - Medications Medications: Current Medications Aspirin (Ecotrin) 81 mg PO DAILY [facility] Last Admin: 12/08/18 08:24 Dose: 81 mg Atorvastatin Calcium (Lipitor) 40 mg PO DAILY [facility] Last Admin: 12/08/18 08:23 Dose: 40 mg Clopidogrel Bisulfate (Plavix) 75 mg PO DAILY [facility] Last Admin: 12/08/18 08:23 Dose: 75 mg Darunavir (Prezista) 800 mg PO DAILY [facility]; Protocol Last Admin: 12/08/18 08:23 Dose: 800 mg Emtricitabine/Tenofovir (Truvada 200 Mg-300 Mg) 1 tab PO DAILY [facility]; Protocol Last Admin: 12/08/18 08:23 Dose: 1 tab Enoxaparin Sodium (Lovenox) 40 mg SC DAILY [facility]; Protocol Last Admin: 12/08/18 08:25 Dose: 40 mg Home Med (Famciclovir [Famvir]) 500 mg PO Q12 [facility] Last Admin: 12/08/18 08:24 Dose: 500 mg Meropenem 1 gm/ Sodium (Chloride) 100 mls @ 100 mls/hr IVPB Q8H [facility]; Protocol Last Admin: 12/08/18 09:08 Dose: 100 mls/hr Vancomycin HCl 1,250 mg/ (Sodium Chloride) 250 mls @ 166.667 mls/hr IVPB Q12@1000,2200 [facility]; Protocol Last Admin: 12/07/18 21:38 Dose: 166.667 mls/hr Ibuprofen (Motrin Tab) 600 mg PO Q8 PRN PRN Reason: Fever >100.4 F Insulin Human Lispro (Humalog) 0 units SC ACHS [facility]; Protocol Last Admin: 12/08/18 08:31 Dose: 2 units Lactobacillus Acidophilus (Bacid Acidophilus) 1 cap PO BID [facility] Levothyroxine Sodium (Synthroid) 50 mcg PO DAILY@0630 [facility] Last Admin: 12/08/18 05:31 Dose: 50 mcg Lisinopril (Zestril) 20 mg PO DAILY [facility] Last Admin: 12/08/18 08:27 Dose: 20 mg Metformin HCl (Glucophage) 850 mg PO BIDWM [facility] Last Admin: 12/08/18 08:24 Dose: 850 mg Metoprolol Succinate (Toprol Xl) 25 mg PO DAILY [facility] Last Admin: 12/08/18 08:29 Dose: 25 mg Multivitamins/Minerals (Therapeutic-M Tab) 1 tab PO DAILY [facility] Last Admin: 12/08/18 08:23 Dose: 1 tab Blvva-8-Gufz Ethyl Esters (Lovaza) 1 gm PO Q12 [facility] Last Admin: 12/08/18 08:23 Dose: 1 gm Raltegravir (Isentress) 400 mg PO Q12 [facility]; Protocol Last Admin: 12/08/18 08:24 Dose: 400 mg Ritonavir (Norvir) 100 mg PO DAILY [facility] Last Admin: 12/04/18 09:24 Dose: 100 mg Tamsulosin HCl (Flomax) 0.4 mg PO DAILY [facility] Last Admin: 12/08/18 08:24 Dose: 0.4 mg - Labs Labs: - Additional Findings Additional findings: - Constitutional Appears: No Acute Distress - Head Exam Head Exam: ATRAUMATIC - Eye Exam Eye Exam: EOMI, PERRL - ENT Exam ENT Exam: Normal Oropharynx - Neck Exam Neck exam: Positive for: Full Rom Additional comments: supple - Respiratory Exam Respiratory Exam: NORMAL BREATHING PATTERN Additional comments: crackles heard on left base but less than before No wheezing - Cardiovascular Exam Cardiovascular Exam: RRR, +S1, +S2 - GI/Abdominal Exam GI & Abdominal Exam: Normal Bowel Sounds, Soft Additional comments: NT, ND - Extremities Exam Extremities exam: Positive for: normal inspection - Neurological Exam Neurological exam: Alert, Oriented x 3 Additional comments: strength 5/5 B/L UE and LE sensation intact b/l Laboratory Results - last 72 hr 12/05/18 12/05/18 12/05/18 13:03 16:11 21:06 WBC RBC Hgb Hct MCV MCH MCHC RDW Plt Count MPV Neut % (Auto) Lymph % (Auto) Twiggs % (Auto) Eos % (Auto) Baso % (Auto) Neut # (Auto) Lymph # (Auto) [place]iggs # (Auto) Eos # (Auto) Baso # (Auto) Sodium Potassium Chloride Carbon Dioxide Anion Gap BUN Creatinine Est GFR ( Amer) Est GFR (Non-Af Amer) POC Glucose (mg/dL) 149 H 202 H Random Glucose Hemoglobin A1c 7.2 H Calcium Total Bilirubin AST ALT Alkaline Phosphatase Total Protein Albumin Globulin Albumin/Globulin Ratio Vancomycin Trough C. difficile Ag & Toxin 12/06/18 12/06/18 12/06/18 05:43 05:50 05:50 WBC 8.3 RBC 3.64 L Hgb 11.5 L Hct 34.0 L MCV 93.2 MCH 31.7 H MCHC 34.0 RDW 14.2 Plt Count 273 MPV 7.7 Neut % (Auto) 77.5 H Lymph % (Auto) 13.2 L Twiggs % (Auto) 7.1 Eos % (Auto) 1.6 Baso % (Auto) 0.6 Neut # (Auto) 6.4 Lymph # (Auto) 1.1 Twiggs # (Auto) 0.6 Eos # (Auto) 0.1 Baso # (Auto) 0.1 Sodium Potassium Chloride Carbon Dioxide Anion Gap BUN Creatinine Est GFR ( Amer) Est GFR (Non-Af Amer) POC Glucose (mg/dL) 172 H Random Glucose Hemoglobin A1c Calcium Total Bilirubin AST ALT Alkaline Phosphatase Total Protein Albumin Globulin Albumin/Globulin Ratio Vancomycin Trough 11.2 H C. difficile Ag & Toxin 12/06/18 12/06/18 12/06/18 10:49 16:05 21:14 WBC RBC Hgb Hct MCV MCH MCHC RDW Plt Count MPV Neut % (Auto) Lymph % (Auto) Twiggs % (Auto) Eos % (Auto) Baso % (Auto) Neut # (Auto) Lymph # (Auto) Twiggs # (Auto) Eos # (Auto) Baso # (Auto) Sodium Potassium Chloride Carbon Dioxide Anion Gap BUN Creatinine Est GFR ( Amer) Est GFR (Non-Af Amer) POC Glucose (mg/dL) 285 H 153 H 173 H Random Glucose Hemoglobin A1c Calcium Total Bilirubin AST ALT Alkaline Phosphatase Total Protein Albumin Globulin Albumin/Globulin Ratio Vancomycin Trough C. difficile Ag & Toxin 12/07/18 12/07/18 12/07/18 05:27 05:41 05:41 WBC 8.2 RBC 3.86 L Hgb 12.1 Hct 36.0 MCV 93.3 MCH 31.3 H MCHC 33.5 RDW 14.5 Plt Count 312 MPV Neut % (Auto) Lymph % (Auto) Twiggs % (Auto) Eos % (Auto) Baso % (Auto) Neut # (Auto) Lymph # (Auto) Twiggs # (Auto) Eos # (Auto) Baso # (Auto) Sodium 138 Potassium 4.3 Chloride 101 Carbon Dioxide 30 Anion Gap 11 BUN 17 Creatinine 0.9 Est GFR ( Amer) > 60 Est GFR (Non-Af Amer) > 60 POC Glucose (mg/dL) 189 H Random Glucose 174 H Hemoglobin A1c Calcium 9.6 Total Bilirubin 0.4 AST 64 H D ALT 43 Alkaline Phosphatase 105 Total Protein 7.9 Albumin 4.0 Globulin 3.9 Albumin/Globulin Ratio 1.0 Vancomycin Trough C. difficile Ag & Toxin 12/07/18 12/07/18 12/07/18 10:51 16:35 22:33 WBC RBC Hgb Hct MCV MCH MCHC RDW Plt Count MPV Neut % (Auto) Lymph % (Auto) Twiggs % (Auto) Eos % (Auto) Baso % (Auto) Neut # (Auto) Lymph # (Auto) Twiggs # (Auto) Eos # (Auto) Baso # (Auto) Sodium Potassium Chloride Carbon Dioxide Anion Gap BUN Creatinine Est GFR ( Amer) Est GFR (Non-Af Amer) POC Glucose (mg/dL) 305 H 168 H 144 H Random Glucose Hemoglobin A1c Calcium Total Bilirubin AST ALT Alkaline Phosphatase Total Protein Albumin Globulin Albumin/Globulin Ratio Vancomycin Trough C. difficile Ag & Toxin 12/08/18 12/08/18 12/08/18 05:19 05:25 05:25 WBC 9.8 RBC 4.03 L Hgb 12.5 Hct 37.7 MCV 93.4 MCH 31.1 H MCHC 33.3 RDW 14.1 Plt Count 324 MPV 7.2 Neut % (Auto) 72.5 Lymph % (Auto) 13.5 L Twiggs % (Auto) 11.9 H Eos % (Auto) 1.4 Baso % (Auto) 0.7 Neut # (Auto) 7.1 H Lymph # (Auto) 1.3 Twiggs # (Auto) 1.2 H Eos # (Auto) 0.1 Baso # (Auto) 0.1 Sodium 138 Potassium 4.0 Chloride 102 Carbon Dioxide 25 Anion Gap 15 BUN 20 Creatinine 0.8 Est GFR ( Amer) > 60 Est GFR (Non-Af Amer) > 60 POC Glucose (mg/dL) 199 H Random Glucose 162 H Hemoglobin A1c Calcium 9.4 Total Bilirubin 0.5 AST 51 ALT 43 Alkaline Phosphatase 100 Total Protein 8.0 Albumin 4.1 Globulin 4.0 H Albumin/Globulin Ratio 1.0 Vancomycin Trough C. difficile Ag & Toxin 12/08/18 12/08/18 12/08/18 05:25 07:19 11:22 WBC RBC Hgb Hct MCV MCH MCHC RDW Plt Count MPV Neut % (Auto) Lymph % (Auto) Twiggs % (Auto) Eos % (Auto) Baso % (Auto) Neut # (Auto) Lymph # (Auto) [place]iggs # (Auto) Eos # (Auto) Baso # (Auto) Sodium Potassium Chloride Carbon Dioxide Anion Gap BUN Creatinine Est GFR ( Amer) Est GFR (Non-Af Amer) POC Glucose (mg/dL) 171 H Random Glucose Hemoglobin A1c Calcium Total Bilirubin AST ALT Alkaline Phosphatase Total Protein Albumin Globulin Albumin/Globulin Ratio Vancomycin Trough 14.0 H C. difficile Ag & Toxin Negative Microbiology 12/03/18 14:01 Blood-Venous Blood Culture - Final NO GROWTH AFTER 5 DAYS 12/03/18 14:01 Blood-Venous Gram Stain - Final TEST NOT PERFORMED 12/03/18 14:01 Blood-Venous Blood Culture - Final NO GROWTH AFTER 5 DAYS 12/03/18 14:01 Blood-Venous Gram Stain - Final TEST NOT PERFORMED 12/03/18 09:00 Naris MRSA Culture (Admit) - Final MRSA NOT DETECTED 12/03/18 13:45 Urine,Clean Catch Urine Culture - Final No Growth (<1,000 CFU/ML) Assessment and Plan (1) Cerebrovascular accident, embolic Status: Acute (2) HIV (human immunodeficiency virus infection) Status: Acute (3) Leukocytosis Status: Acute (4) Fever Status: Acute (5) Chronic hip pain, bilateral Status: Acute (6) Hypothyroidism Status: Acute - Assessment and Plan (Free Text) Assessment: A/P- 73 year old male with HIV ( well controlled), DM II, HTN, Hypothyroidism, b/l chronic hip pain from arthritis and spinal stenosis admitted with change in MS , weakness and hip pain. clinically much improved. afebrile past 4 days. leukocytosis resolved . admission Chest CT- extensive left lower lung Pneumonia. MRI of the brain - as per report small foci of acute Left PICA territory infarction UA- neg blood cx-neg x 4 urine cx- neg TTE- no mention of any vegetations as per report no need for GINA as per hospice plan administrator as per neuro mini stroke was secondary to atherosclerosis and advise plavix and aspirin PLan- has completed 5 days of IV meropnem and vanco. feels much betetr. wants to go home. advised he can be d/c home today on Oral augmentin 875 mg BID along with levaquin 750 mg Daily for 10 days. advised to also give patient on probiotic to avoid any diarrhea or c.diff. Patient to f/u with me in office in 4 days. advised pt. if he develops any sob or any fever to return to ER and notify me. all above d/w patient at length and he verbalizes full understanding of all above and agrees with above plan of care. d/w .
--- NOTE | 2018-12-08 12:02 | CP.PCM.DIS ---
Provider - Provider Date of Admission: 12/03/18 18:03 Attending physician: Magdalena Steele MD Primary care physician: Non CPH Provider Consults: 12/03/18 18:05 Cardiology Consult Routine Comment: Consulting Provider: Curly De Paz Consulting Physician: Curly De Paz Reason for Consult: HTN, CVA , ? embolic Infectious Disease Consult Routine Comment: Consulting Provider: Renate Garcia Consulting Physician: Renate Garcia Reason for Consult: leukocytosis, fever, HIV Neurology Consult Stat Comment: Consulting Provider: Joel Fontenot Consulting Physician: Joel Fontenot Reason for Consult: acute CVA Time Spent in preparation of Discharge (in minutes): 30 Hospital Course - Lab Results Lab Results: Micro Results 12/03/18 14:01 Blood-Venous Blood Culture - Preliminary NO GROWTH AFTER 4 DAYS 12/03/18 14:01 Blood-Venous Blood Culture - Preliminary NO GROWTH AFTER 4 DAYS 12/03/18 09:00 Naris MRSA Culture (Admit) - Final MRSA NOT DETECTED 12/03/18 13:45 Urine,Clean Catch Urine Culture - Final No Growth (<1,000 CFU/ML) Most Recent Lab Values WBC 9.8 K/uL (4.8-10.8) 12/08/18 05:25 RBC 4.03 Mil/uL (4.40-5.90) L 12/08/18 05:25 Hgb 12.5 g/dL (12.0-18.0) 12/08/18 05:25 Hct 37.7 % (35.0-51.0) 12/08/18 05:25 MCV 93.4 fl (80.0-94.0) 12/08/18 05:25 MCH 31.1 pg (27.0-31.0) H 12/08/18 05:25 MCHC 33.3 g/dL (33.0-37.0) 12/08/18 05:25 RDW 14.1 % (11.5-14.5) 12/08/18 05:25 Plt Count 324 K/uL (130-400) 12/08/18 05:25 MPV 7.2 fl (7.2-11.7) 12/08/18 05:25 Neut % (Auto) 72.5 % (50.0-75.0) 12/08/18 05:25 Lymph % (Auto) 13.5 % (20.0-40.0) L 12/08/18 05:25 [place] % (Auto) 11.9 % (0.0-10.0) H 12/08/18 05:25 Eos % (Auto) 1.4 % (0.0-4.0) 12/08/18 05:25 Baso % (Auto) 0.7 % (0.0-2.0) 12/08/18 05:25 Neut # (Auto) 7.1 K/uL (1.8-7.0) H 12/08/18 05:25 Lymph # (Auto) 1.3 K/uL (1.0-4.3) 12/08/18 05:25 [place] # (Auto) 1.2 K/uL (0.0-0.8) H 12/08/18 05:25 Eos # (Auto) 0.1 K/uL (0.0-0.7) 12/08/18 05:25 Baso # (Auto) 0.1 K/uL (0.0-0.2) 12/08/18 05:25 Neutrophils % (Manual) 81 % (42-75) H 12/04/18 04:18 Band Neutrophils % 12 % (0-2) H* 12/04/18 04:18 Lymphocytes % (Manual) 5 % (20-50) L 12/04/18 04:18 Monocytes % (Manual) 2 % (0-10) 12/04/18 04:18 Hypersegmented Polys Present 12/04/18 04:18 Toxic Granulation Present 12/04/18 04:18 Platelet Estimate Normal (NORMAL) 12/04/18 04:18 RBC Morphology Normal (NORMAL) 12/03/18 13:25 Hypochromasia (manual) Slight 12/04/18 04:18 PT 12.4 Seconds (9.8-13.1) 12/03/18 13:25 INR 1.1 12/03/18 13:25 APTT 29.6 Seconds (25.6-37.1) 12/03/18 13:25 pO2 22 mm/Hg (30-55) L 12/03/18 17:10 VBG pH 7.36 (7.32-7.43) 12/03/18 17:10 VBG pCO2 42 mmHg (40-60) 12/03/18 17:10 VBG HCO3 21.8 mmol/L 12/03/18 17:10 VBG Total CO2 25.0 mmol/L (22-28) 12/03/18 17:10 VBG O2 Sat (Calc) 40.0 % (40-65) 12/03/18 17:10 VBG Base Excess -1.8 mmol/L (0.0-2.0) L 12/03/18 17:10 VBG Potassium 4.0 mmol/L (3.6-5.2) 12/03/18 17:10 Sodium 134.0 mmol/L (132-148) 12/03/18 17:10 Chloride 101.0 mmol/L (98-107) 12/03/18 17:10 Glucose 189 mg/dL (75-110) H 12/03/18 17:10 Lactate 2.9 mmol/L (0.7-2.1) H 12/03/18 17:10 FiO2 21.0 % 12/03/18 17:10 Sodium 138 mmol/l (132-148) 12/08/18 05:25 Potassium 4.0 MMOL/L (3.6-5.0) 12/08/18 05:25 Chloride 102 mmol/L (98-107) 12/08/18 05:25 Carbon Dioxide 25 mmol/L (22-30) 12/08/18 05:25 Anion Gap 15 (10-20) 12/08/18 05:25 BUN 20 mg/dl (9-20) 12/08/18 05:25 Creatinine 0.8 mg/dl (0.8-1.5) 12/08/18 05:25 Est GFR ( Amer) > 60 12/08/18 05:25 Est GFR (Non-Af Amer) > 60 12/08/18 05:25 POC Glucose (mg/dL) 171 mg/dL (65-110) H 12/08/18 11:22 Random Glucose 162 mg/dL (75-110) H 12/08/18 05:25 Hemoglobin A1c 7.2 % (4.2-6.5) H 12/05/18 13:03 Lactic Acid 1.0 mmol/L (0.7-2.1) 12/04/18 04:18 Calcium 9.4 mg/dL (8.4-10.2) 12/08/18 05:25 Total Bilirubin 0.5 mg/dl (0.2-1.3) 12/08/18 05:25 AST 51 U/L (17-59) 12/08/18 05:25 ALT 43 U/L (21-72) 12/08/18 05:25 Alkaline Phosphatase 100 U/L (38-126) 12/08/18 05:25 Total Protein 8.0 G/DL (6.3-8.2) 12/08/18 05:25 Albumin 4.1 g/dL (3.5-5.0) 12/08/18 05:25 Globulin 4.0 gm/dL (2.2-3.9) H 12/08/18 05:25 Albumin/Globulin Ratio 1.0 (1.0-2.1) 12/08/18 05:25 Triglycerides 221 mg/DL (0-149) H 12/03/18 19:00 Cholesterol 185 mg/dL (0-199) 12/03/18 19:00 LDL Cholesterol Direct 95 mg/dL (0-129) 12/03/18 19:00 HDL Cholesterol 27 MG/DL (30-70) L 12/03/18 19:00 TSH 3rd Generation 1.07 mIU/ML (0.46-4.68) 12/04/18 08:49 Venous Blood Potassium 4.0 mmol/L (3.6-5.2) 12/03/18 17:10 Urine Color Yellow (YELLOW) 12/03/18 13:45 Urine Clarity Slight-cloudy (Clear) 12/03/18 13:45 Urine pH 5.0 (5.0-8.0) 12/03/18 13:45 Ur Specific [place] 1.023 (1.003-1.030) 12/03/18 13:45 Urine Protein 30 mg/dL (NEGATIVE) 12/03/18 13:45 Urine Glucose (UA) Neg mg/dL (NEGATIVE) 12/03/18 13:45 Urine Ketones Negative mg/dL (NEGATIVE) 12/03/18 13:45 Urine Blood Moderate (NEGATIVE) 12/03/18 13:45 Urine Nitrate Negative (NEGATIVE) 12/03/18 13:45 Urine Bilirubin Negative (NEGATIVE) 12/03/18 13:45 Urine Urobilinogen 0.2-1.0 mg/dL (0.2-1.0) 12/03/18 13:45 Ur Leukocyte Esterase Neg Jasmin/uL (Negative) 12/03/18 13:45 Urine RBC (Auto) 16 /hpf (0-3) H 12/03/18 13:45 Urine Microscopic WBC 3 /hpf (0-5) 12/03/18 13:45 Ur Squamous Epith Cells < 1 /hpf (0-5) 12/03/18 13:45 Urine Bacteria Rare (<OCC) 12/03/18 13:45 Hyaline Casts 3-5 /hpf (0-2) H 12/03/18 13:45 Vancomycin Trough 14.0 ug/mL (5.0-10.0) H 12/08/18 05:25 C. difficile Ag & Toxin Negative (NEGATIVE) 12/08/18 07:19 Influenza Typ A,B (EIA) Negative for flu a/b (NEGATIVE) 12/03/18 13:25 Ur L.pneumophila Ag Negative (NEGATIVE) 12/03/18 18:03 - Hospital Course Hospital Course: 73 y/o male with PMH HIV ( last CD4 count 320 and viral load undetected )bilateral hip arthritis, spinal stenosis,DM , HTN presented to ER with weakness , change in mental status. In ER found to be febrile with elevated WBC count 24 k lactic acid 2.3 , tachycardic MRI head showed left PICA territory embolic stroke. Patient admitted for Sepsis found to be secondary to CAP and acute embolic stroke. ID, cardiology, and neurology was consulted, the patient was medically optimized & showed clinical improvement. Patient was seen and examined this morning. Patient complained of diarrhea, which he states occurs intermittently. He denied any fever, chills, chest pain or sob. Patient will be discharged home on PO antibiotics. 1. Acute CVA/Embolic etiology 2. Sepsis secondary to LLL pneumonia 3. CAP (LLL) 4. B/l Hip pain with improved weakness and history of bilateral hip arthritis 5. Human Immunodeficiency Virus with undetected Viral load 6. HTN, Chronic, controlled 7. NIDDM-II 8. Diarrhea Discharge Exam - Head Exam Head Exam: ATRAUMATIC, NORMAL INSPECTION - Eye Exam Pupil Exam: PERRL - ENT Exam ENT Exam: Mucous Membranes Moist - Respiratory Exam Respiratory Exam: NORMAL BREATHING PATTERN - Cardiovascular Exam Cardiovascular Exam: REGULAR RHYTHM, +S1, +S2 - GI/Abdominal Exam GI & Abdominal Exam: Normal Bowel Sounds, Soft. absent: Guarding, Rigid, Tenderness - Extremities Exam Extremities exam: normal inspection - Neurological Exam Neurological exam: Alert, Oriented x3 - Psychiatric Exam Psychiatric exam: Normal Mood - Skin Skin Exam: Dry Discharge Plan - Discharge Medications Prescriptions: Aspirin [Ecotrin] 81 mg PO DAILY 30 Days #30 tabec Atorvastatin [Lipitor] 40 mg PO DAILY 30 Days #30 tab Clopidogrel [Plavix] 75 mg PO DAILY 30 Days #30 tab Lactobacillus Acidophilus [Bacid Acidophilus] 1 cap PO BID 30 Days #60 cap levoFLOXacin [Levaquin] 750 mg PO DAILY 20 Days #20 tab Lisinopril [Zestril] 20 mg PO DAILY 30 Days #30 tab Metoprolol Succinate XL [Toprol XL] 25 mg PO DAILY 30 Days #30 tab - Follow Up Plan Condition: GUARDED Disposition: HOME/ ROUTINE Instructions: Low Cholesterol, Saturated Fat, and Trans Fat Diet , Sepsis (GEN), Stroke Referrals: Renate Garcia MD [Family Provider] - Non [facility] Provider, [Primary Care Provider] -
== END 2018-12-08 15:00 | disposition home or self-care (01) | DRG 64 ==
LOC: SUPCPDRO 11:28 → H.ER 11:28 → H.ERHOLD 18:03 → H.ICU/CCU 19:36 → H.TEL 12-04 17:48
PROVIDERS: ADMIT Internal Medicine; ATTEND Internal Medicine
DX: I63.442 Cerebral infarction due to embolism of left cerebellar artery (principal); A41.9 Sepsis, unspecified organism; J18.1 Lobar pneumonia, unspecified organism; N17.9 Acute kidney failure, unspecified; F05 Delirium due to known physiological condition; I67.2 Cerebral atherosclerosis; E86.0 Dehydration; Z21 Asymptomatic human immunodeficiency virus [HIV] infection status; R29.700 NIHSS score 0; I10 Essential (primary) hypertension; M16.0 Bilateral primary osteoarthritis of hip; M48.061 Spinal stenosis, lumbar region without neurogenic claudication; N40.0 Benign prostatic hyperplasia without lower urinary tract symptoms; G89.29 Other chronic pain; Z87.891 Personal history of nicotine dependence; E11.9 Type 2 diabetes mellitus without complications; E78.00 Pure hypercholesterolemia, unspecified; E03.9 Hypothyroidism, unspecified; Z79.84 Long term (current) use of oral hypoglycemic drugs; Z79.890 Hormone replacement therapy; M43.12 Spondylolisthesis, cervical region; R19.7 Diarrhea, unspecified